=== PATIENT | female | born 1960 | race Caucasian/White ===

== ENCOUNTER 2016-06-06 07:08 | Day surgery (SDC) | payer OTHER ==
--- NOTE | 2016-05-26 10:28 | PAT Medication Instructions ---
Service Date May 26, 2016. Current Home Medication List Alprazolam (Xanax), 1 MG PO TID PRN for Anxiety Amlodipine (Norvasc), 5 MG PO QAM Aspirin (Aspirin Ec), 81 MG PO QAM Clonidine Hcl (Catapres), 0.1 MG PO TID Cyclobenzaprine Hcl (Flexeril), 10 MG PO TID Escitalopram (Lexapro), 10 MG PO QAM Hydrochlorothiazide (Hydrochlorothiazide), 1 TAB PO DAILY PRN for SWELLING Isosorbide Mononitrate (Isosorbide Mononitrate ER), 30 MG PO QAM Metoprolol Tartrate (Lopressor) (Lopressor), 25 MG PO BID Pantoprazole (Protonix), 40 MG PO QAM Medication Instructions For Your Scheduled Surgery - Check with surgeon for instructions: Aspirin (Aspirin Ec), 81 MG PO QAM - Hold the following medications the morning of surgery: Cyclobenzaprine Hcl (Flexeril), 10 MG PO TID Hydrochlorothiazide (Hydrochlorothiazide), 1 TAB PO DAILY PRN for SWELLING\ - Take the following medications the morning of surgery with a sip of water: Metoprolol Tartrate (Lopressor) (Lopressor), 25 MG PO BID Pantoprazole (Protonix), 40 MG PO QAM Escitalopram (Lexapro), 10 MG PO QAM Clonidine Hcl (Catapres), 0.1 MG PO TID Alprazolam (Xanax), 1 MG PO TID PRN for Anxiety Amlodipine (Norvasc), 5 MG PO QAM Isosorbide Mononitrate (Isosorbide Mononitrate ER), 30 MG PO QAM - Take the following medications as scheduled the night before surgery: Metoprolol Tartrate (Lopressor) (Lopressor), 25 MG PO BID Cyclobenzaprine Hcl (Flexeril), 10 MG PO TID Clonidine Hcl (Catapres), 0.1 MG PO TID Alprazolam (Xanax), 1 MG PO TID PRN for Anxiety Hydrochlorothiazide (Hydrochlorothiazide), 1 TAB PO DAILY PRN for SWELLING If you have any questions please call us at [phone] (Sylwia Ernandez PA-C) or [phone] or [phone]
[2016-05-26 11:48] LABS: BASO % 0.5 %; BASO ABS # 0.04 K/uL (0-0.2); COMPLETE YES; EOS % 3.3 %; HEMATOCRIT 37.7 % (37-47); IG% 0.4 %; LYMPH % 25.1 %; LYMPH ABS # 2.13 K/uL (1.2-3.4); MEAN CELL VOLUME 83.6 fL (80-100); MEAN CORPUSCULAR HGB CONC 34.7 g/dl (32-36); MEAN PLATELET VOLUME 10.9 fL (7.4-10.4); MONO % 9.3 %; NEUT % 61.4 %; PLATELET COUNT 328 K/uL (130-400); RED BLOOD COUNT 4.51 M/uL (4.2-5.4); WHITE BLOOD COUNT 8.47 K/uL (4.8-10.8)
[2016-05-26 12:14] LABS: BUN/CREATININE RATIO 15.9 (10-20); CALCIUM 8.8 mg/dl (8.5-10.1); CREATININE 0.92 mg/dl (0.60-1.20)
--- NOTE | 2016-06-02 16:53 | HISTORY & PHYSICAL EXAMINATION ---
DATE OF ADMISSION: 06/06/2016 CHIEF COMPLAINT: Persistent complex right ovarian cyst. HISTORY OF PRESENT ILLNESS: The patient is a 56-year-old white female 2, para 2 who is perimenopausal. She presented to the ED recently and was diagnosed with a kidney stone, admitted for observation with urology consult. Incidentally found on the CT scan was a complex 6 cm right ovarian cyst and also noted was some mild lymphadenopathy with 12 mm periaortic nodes. There was also a 2.4 cm cyst noted on the left ovary. On ultrasound, the right ovary measures 78 mL with a 4.3 x 4.1 x 4.1 cm complex multicystic septated mass, the left ovary 8.6 mL with no masses. The patient's last menstrual period was January 2011. She notes irregular periods every 3-5 weeks, sometimes light other times heavier, no breakthrough bleeding and mild cramping with 6 days of flow. Last Pap was last year. She notes no abdominal pain. She notes some urinary symptoms with her kidney stone. These have not worsened. She is not sexually active. No history of STDs. She was told that she had cyst on her ovary at [facility] within the last year. Followup ultrasound apparently had no cyst. She has had 2 vaginal deliveries and no issues with the pregnancies and no nausea, vomiting. The rest of review of systems is negative. After evaluation, we decided to get a CA-125. This was 5. So given that the CA-125 was negative, we decided to follow up in 6-8 weeks to see if there would be resolution of the cyst. The patient visited me on May 03 having an ultrasound at that visit, endometrium was 7.5 mm, the left ovary was 5.4 mL and inhomogeneous, the right ovary contains a complex lobulated multicystic septated cyst measuring 4.1 x 3.2 x 5.8 cm. This is about 40 mL. It was previously 38.1 mL. A repeat CA-125 was performed and this was 7. Given the persistence of this complex cyst, I have recommended its removal. PAST OBSTETRICAL AND GYNECOLOGICAL HISTORY: As noted above. PAST MEDICAL HISTORY: Significant for acid reflux, elevated liver enzymes, hypertension and nephrolithiasis. PAST SURGICAL HISTORY: Includes wisdom teeth removal and tubal ligation. FAMILY HISTORY: Her mother has a cerebrovascular accident. There is no family history of breast, colorectal or ovarian cancer in the family. ALLERGIES: SHE HAS ALLERGIES TO ANTIHISTAMINES AND LISINOPRIL. MEDICATIONS: Currently include alprazolam 0.5 mg t.i.d. p.r.n., amlodipine 5 mg once daily, aspirin 81 mg once daily, clonidine 0.1 mg 3 times daily, cyclobenzaprine 10 mg 1 tablet t.i.d. as needed, escitalopram 10 mg daily, isosorbide ER 30 mg 1 daily, metoprolol 25 mg 1 tablet twice daily, pantoprazole 40 mg tablet once daily. PHYSICAL EXAMINATION: GENERAL: This is a well-developed, well-nourished white female in no acute distress. VITAL SIGNS: Height 5 feet 2 inches, weight 166 pounds, blood pressure 130/72. NECK: Supple without thyromegaly or lymphadenopathy. CHEST: Clear to auscultation bilaterally. CARDIOVASCULAR: Regular rate and rhythm without murmurs, gallops or rubs. BACK: Without costovertebral angle tenderness. ABDOMEN: Soft, nontender, nondistended, without appreciable masses. PELVIC: There is normal external female genitalia. Normal Bartholin, urethra and Suffield glands. The vagina is pink and with fair rugae. There was no active vaginal bleeding. On bimanual exam, there was fullness in the right adnexa, but no tenderness. The uterus was small, anteverted and nontender. No uterine masses were appreciated. Palpation of the bladder was negative. RECTAL: Showed normal sphincter tone, no masses. ASSESSMENT AND PLAN: This is a 56-year-old perimenopausal white female who has a complex right ovarian cyst. I have recommended laparoscopic right salpingo-oophorectomy with or without the need for the da Marivel. The risks of surgery were discussed with the patient including the risks of anesthesia; bleeding requiring transfusion; infection; poor wound healing; damage to surrounding structures including bowel, bladder, vessels, nerves and ureters with need for further surgery, hospitalization or intervention. We discussed the possibility of open procedure. The other risks of surgery were discussed with the patient including the risk of heart attack, blood clot, stroke or . We did discuss the possibility of rupture of the cyst and the implications of that should there be cancer. Questions were asked and answered. Surgery is scheduled for June 06.
[~2016-06-06] VITALS: Ht 157.5 cm; Wt 76.2 kg
[~2016-06-06 07:08] MED LIST: ALPR-411 PO; CYCL10TA6 PO; ESCI10TA17 PO; HYDR12.55 PO; LACTATED RINGER'S 1000ML 1,000 ML IV SCH
[2016-06-06 07:27] VITALS: BP 136/78; PULSE 79; TEMP 36.4; O2SAT 95; Ht 157.5 cm; Wt 76.2 kg
[2016-06-06 08:21] LABS: BUN/CREATININE RATIO 17.1 (10-20); CALCIUM 8.9 mg/dl (8.5-10.1); CREATININE 0.97 mg/dl (0.60-1.20); POTASSIUM 3.4 mmol/L (3.5-5.1)
--- NOTE | 2016-06-06 10:22 | History & Physical Bridge Note ---
H&P Re-Evaluation Bridge Note: I have examined the patient, reviewed the History & Physical and in the interval since the performance of the History & Physical I have noted the following changes of clinical significance: No changes noted
[2016-06-06] MEDS ORDERED: MIDAZOLAM HCL 1 MG/ML 2ML VIAL ONE (10:23)
[2016-06-06] MEDS ORDERED: FENTANYL CITRATE INJ 50 MCG/1 ML 2 ML VIAL ONE ×3 (10:23→13:25)
[2016-06-06] MEDS ORDERED: PROPOFOL IV EMULSION 10 MG/ML 20 ML VIAL IV ONE (11:04)
[2016-06-06] MEDS ORDERED: ROCURONIUM BROMIDE 10 MG/ML 5 ML VIAL ONE (11:04)
[2016-06-06] MEDS ORDERED: ONDANSETRON INJ 2 MG/ML 2 ML VIAL ONE (11:05)
[2016-06-06] MEDS ORDERED: DEXAMETHASONE SOD INJ 4 MG/ML VIAL ONE (11:05)
[2016-06-06] MEDS ORDERED: LIDOCAINE HCL 2% 2 ML VIAL (20MG/ML) ONE (11:05)
[2016-06-06] MEDS ORDERED: ESMOLOL HCL 10 MG/ML 10 ML VIAL ONE (11:15)
[2016-06-06] MEDS ORDERED: PHENYLEPHRINE HCL INJ 10 MG/ML VIAL ONE (12:09)
[2016-06-06] MEDS ORDERED: FLUMAZENIL 0.1 MG/1 ML 10 ML VIAL IV PRN (12:15)
[2016-06-06] MEDS ORDERED: EpHEDrine SULFATE INJ 50 MG/ML AMP IV PRN (12:15)
[2016-06-06] MEDS ORDERED: MEPERIDINE HCL 25 MG/ML CARP IV PRN (12:15)
[2016-06-06] MEDS ORDERED: ONDANSETRON INJ 2 MG/ML 2 ML VIAL IV PRN (12:15)
[2016-06-06] MEDS ORDERED: FENTANYL CITRATE INJ 50 MCG/1 ML 2 ML VIAL IV PRN (12:15)
[2016-06-06] MEDS ORDERED: PHENYLEPHRINE 100MCG/ML 5ML SYR IV PRN (12:15)
[2016-06-06] MEDS ORDERED: HYDROmorphone INJ 2 MG/ML SYR/VIAL IV PRN (12:15)
[2016-06-06] MEDS ORDERED: LABETALOL HCL IV 5 MG/ML 20ML IV PRN (12:15)
[2016-06-06] MEDS ORDERED: ATROPINE SULFATE 0.1 MG/ML 5ML SYR IV PRN (12:15)
[2016-06-06] MEDS ORDERED: BUPIVACAINE 0.5 % 5 MG/1 ML MPF 30ML VIAL INJ ONE (13:45)
[2016-06-06] MEDS ORDERED: METOPROLOL TARTRATE 1 MG/ML VIAL ONE ×2 (13:51→14:13)
--- NOTE | 2016-06-06 13:58 | [facility] Post Operative Brief Note ---
Immediate Operative Summary Operative Date Jun 06, 2016. Pre-Operative Diagnosis Persistent complex right ovarian cyst Post-Operative Diagnosis Bilateral solid cystic mass/ovaries frozen section- right ovarian serous cystadenofibroma Procedure(s) Performed Robotic assisted laparoscopic bilateral salpingo-oophorectomy with cytology washings and cystoscopy Surgeon Dr. Gutierrez Retail Financial Analyst Surgeon(s) Dr. Hobson Estimated Blood Loss 50ml Findings right ovary enlarged to 6-7cm, irregular rubbery and cystic masses noted. the left ovary had a similar appearance but was only about 3cm. uterus normal. tubes normal bilaterally other than interrupted. adhesions between the liver edge and diaphragm. Fluids (cc crystalloids) 2000cc Specimens A. Left fallopian tube and ovary Drains none Anesthesia gett Disposition Recovery Room / PACU
[2016-06-06] MEDS ORDERED: LACTATED RINGER'S 1000ML 1,000 ML IV SCH (14:04)
[2016-06-06] MEDS ORDERED: OXYC-57 PO ×2 (14:07→15:55)
--- NOTE | 2016-06-06 14:09 | Discharge Instructions ---
Discharge Instructions Visit Reason for Visit: Complex Right Ovarian Cyst Discharge Discharge Diagnosis / Problem: s/p removal of both ovaries Discharge Goals Goal(s): Specific goals Activity Recommendations Activity Limitations: per Instructions/Follow-up section Anesthesia . Post Anesthesia Instructions: If you have had General Anesthesia or IV Sedation: * Do not drive today. * Resume driving when surgeon permits. * Do not make important decisions or sign legal documents today. * Call surgeon for: 1. Temperature elevations greater than 101 degrees F. 2. Uncontrollable pain. 3. Excessive bleeding. 4. Persistent nausea and vomiting. 5. Medication intolerance (nausea, vomiting or rash). * For nausea and vomiting use only clear liquids such as: tea, soda, bouillon until nausea subsides, then gradually increase diet as tolerated. * If you have any concerns or questions, call your surgeon's office. If physician is unavailable and it is an emergency, call 911 or go to the nearest emergency room. . Instructions / Follow-Up Instructions / Follow-Up ACTIVITY RECOMMENDATIONS: * Rest the first 2-3 days. You should be back to your normal activity levels by day 5. * No heavy lifting for 2 weeks. * No intercourse, tampons or douching for 1-2 weeks. * You may shower the next day. * Do not drive anytime that you are taking narcotic pain medicines. RETURN TO SCHOOL/WORK: * May return to school or work after 2-3 days. DIET: Nausea may occur in the immediate post-operative period. If so, take clear liquids such as tea, bouillon, apple juice until all nausea has subsided, then resume usual diet. MEDICATIONS: Resume previous medications unless instructed otherwise by your surgeon. Ibuprofen 200mg 2-3 tablets every 4-6 hours as needed -- OR -- Aleve 2 tablets every 8-12 hours as needed for post-operative discomfort Medications are over the counter. Tylenol may be used if above medications are contraindicated or not preferred. Medication should be taken with food or milk. Do not take on an empty stomach. SPECIAL CARE INSTRUCTIONS: * Check temperature twice daily for one week. report any elevation over 101 degrees. * You may experience some vagina spotting and/or bleeding. This is normal for 1 -2 weeks and should not be heavier than a normal period. If it is unusual in amount, call your physician. * Post-operative discomfort may consist of a sore throat, a "bloated" feeling and pain in the shoulders. these are normal symptoms, which usually only last for 2-3 days. * Remove band-aids tomorrow and shower. There is no need to replace band-aids unless there is drainage or discomfort. FOLLOW UP VISIT: Call your doctor's office for a post-operative 2 week visit if not already scheduled. Diet Recommendations Recommended Home Diet: no limitations, resume previous diet Procedures Procedures Performed: Robotic assisted laparoscopic bilateral salpingo-oophorectomy with cytology washings and cystoscopy Pending Studies Studies pending at discharge: no Medical Emergencies . Who to Call and When: Medical Emergencies: If at any time you feel your situation is an emergency, please call 911 immediately. . Non-Emergent Contact Non-Emergency issues call your: Beta Tester . . "Provider Documentation" section prepared by Gwen Gutierrez. [place] Drug Monitoring Program Search Results: patient reviewed within database
--- NOTE | 2016-06-06 14:11 | Medical Student: [facility] ---
Immediate Operative Summary Operative Date Jun 06, 2016. Pre-Operative Diagnosis Right ovarian cyst Post-Operative Diagnosis Bilateral solid cystic mass/ovaries, right serous cystadenofibroma confirme Procedure(s) Performed Robotic assisted bilateral salpingoopherectomy, cytology wash, cystoscopy Surgeon Dr. Gutierrez Coagulating Bath Operator Surgeon(s) Dr. Hobson Estimated Blood Loss 50ml Findings right ovary was found to be enlarged to approx 7 cm and irregularly lobular and rubbery with cystic patches. Left ovary was found to be similar in appearance, but only enlarged to about 3 cm. Uterus was visualized as normal. Tubes were normal bilaterally. There were adhesions noted between the liver and diaphragm. Fluids (cc crystalloids) 2000 cc Specimens Right and left ovaries and fallopian tubes Drains none Anesthesia General ETT Complication(s) None Disposition Recovery Room / PACU
[2016-06-06] MEDS ORDERED: ACETAMINOPHEN 650 MG SUPP PR PRN (14:15)
[2016-06-06] MEDS ORDERED: IBUPROFEN 600 MG TAB PO PRN (14:15)
[2016-06-06] MEDS ORDERED: MoRPHine SULFATE 2 MG/ML CARP IV PRN ×2 (14:15)
[2016-06-06] MEDS ORDERED: KETOROLAC TROMETHAMINE 30 MG/ML VIAL IV. PRN ×2 (14:15)
[2016-06-06] MEDS ORDERED: ACETAMINOPHEN 325 MG TAB PO PRN (14:15)
[2016-06-06] MEDS ORDERED: OXYCODONE/ACETAMINOPHEN 5-325 TAB PO PRN ×2 (14:15)
[2016-06-06] MEDS ORDERED: MoRPHine SULFATE 4 MG/ML 1 ML CARP\\VIAL IV PRN (14:15)
[2016-06-06] MEDS ORDERED: IBUPROFEN 200 MG TAB PO PRN (14:15)
[2016-06-06] MEDS: NALOXONE HCL 0.4 MG/1 ML VIAL/CARP IV PRN ×2 (14:30→14:33)
--- NOTE | 2016-06-06 14:54 | OPERATIVE REPORT ---
DATE OF OPERATION: 06/06/2016 PREOPERATIVE DIAGNOSIS: Right complex ovarian cyst. POSTOPERATIVE DIAGNOSES: 1. Bilateral complex cystic and solid ovarian masses. 2. 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 SURGEON: Dr. Gwen Gutierrez. TALLIER: Dr. Hobson. ANESTHESIA: General per endotracheal tube. ESTIMATED BLOOD LOSS: 50 mL. FLUIDS: 2000 mL of IV fluids. URINE OUTPUT: 1300 mL of clear yellow urine drained from the bladder by the end of the procedure. INDICATIONS: oJrdyn is a 56-year-old perimenopausal white female who was found to have a multicystic right ovary when she had a CT scan for a kidney stone. CA-125 was normal. Left ovary appeared normal by CT. Decision was made with persistence to remove. FINDINGS: At the time of surgery revealed an enlarged right ovary that was cystic and solid in texture. It was adhesed to the right pelvic sidewall. The left ovary although much smaller and had a similar gross appearance. On frozen section, the right ovary was found to be on several sections of serous cystadenofibroma. Given this finding and the appearance of the other ovary in a similar fashion, decision was made to remove the left adnexa. COMPLICATIONS: None. DRAINS: None. DISPOSITION: To recovery room in stable condition. DESCRIPTION OF PROCEDURE: The patient was taken to the operating room, where she was identified verbally and by bracelet. She was placed in dorsal supine position where general anesthesia was induced without difficulty. She was then placed in dorsal lithotomy position and Yellofin stirrups. Her arms were carefully tucked and padded at her sides and her chest was padded and restrained. The head stock operator was placed. She was prepped and draped in normal sterile fashion. Timeout was held identifying correct patient, procedure and positioning. Attention was turned to the perineum, where speculum was placed. The anterior lip of the cervix was grasped with a single tooth tenaculum and a Hernandez uterine manipulator was placed into this and then the speculum was removed. A Gonzales catheter was placed. Gloves were then changed. Attention was turned to the abdomen, where an infraumbilical incision was made with a knife. Veress needle was placed through this opening pressure of 10 mmHg over several attempts. Therefore, decision made to proceed this as an open procedure. We opened the skin incision slightly farther with the knife. The fascia was grasped bilaterally and entered with scissors. The edges were sutured with a [id number] suture of 0 Vicryl. The peritoneum was then entered bluntly. The Bruce trocar was placed and direct intra-abdominal placement was confirmed with the laparoscope. The abdomen was insufflated with carbon dioxide gas. The patient was placed into Trendelenburg position. Evaluation of the pelvis revealed the above findings. The right ovary was stuck to the pelvic sidewall, so decision was made to proceed with da Marivel nurse assistant. Two 8 mm daVinci trocars were placed under direct visualization in the right and left lower quadrants. A 10mm assist trocar was placed in the left upper quadrant. The da Marivel nurse assistant device was connected to the patient and the grinding machine operator automatic proceeded to the console. Some of the bowel adhesions of the omentum and bowel epiploic of the descending colon were taken down sharply and with scissors and then the IP ligament was identified on the right and it was found to be free of the ureter and it was cauterized and cut with hot sandor. Then, the tubo-ovarian ligament was gone through as well as the tubal stump. Then using blunt dissection, the ovary was peeled off of the right pelvic sidewall until it was disconnected from the side wall and uterus. There was ooziness of the right pelvic sidewall and so, a sponge was placed into this area to serve as a pressure. The surgeon rescrubbed and returned to the sterile field. The daVinci was disconnected. A bag was placed through the umbilical incision. The camera was placed through an 10-mm accessory trocar site. The specimen was placed into the bag and the bag was drawn up to the surface and the specimen was removed from the bag in two pieces with the knife and then eventually could be removed entirely. The bag remained intact. There was some fluid that was released from several very small cystic areas on the ovary. The specimen was then sent for frozen section. The da Marivel nurse assistant device was reconnected to the patient. The grinding machine operator automatic returned to the console and the area of the right pelvic sidewall was evaluated. Oozing from the site was much improved. FloSeal was placed into this area and pressure was held for 4 minutes with a sponge. Hemostasis was then noted to be excellent. The pathology specimen returned serous cystadenofibroma from the frozen section. I felt that it was in the patient's best interest to remove the other ovary as it had a very similar appearance. I did scrub out, leaving Dr. Ashly Hobson in to monitor the patient, discussed this with the patient's family and told them my findings and they agreed that we should proceed. returning to the console, I did some blunt and sharp dissection of the bowel epiploica and omentum from the left side. The tubo-ovarian ligament was cauterized and cut and then once, we were clear of the IP, the IP was also cauterized and cut. The ovary was bluntly dissected away from the left pelvic sidewall until it was detached. The da Marivel nurse assistant device was removed from the patient. A bag was placed through the 12-mm trocar site and using the camera through the 10-mm trocar site, the specimen was placed into the bag and the bag was withdrawn through the incision. This ended the procedure. The fascial incision of the umbilical incision was repaired with 0 Vicryl. The subcuticular tissue was irrigated with saline and then all skin incisions were closed with 4-0 Vicryl in a subcuticular fashion. The incisions were then infiltrated with 0.5% Marcaine and treated with Dermabond. The instruments were removed from the vagina as well as the Gonzales catheter. Hemostasis was noted to be excellent. All sponge, lap and needle counts were correct x2. The patient tolerated the procedure well and was taken to recovery room in stable condition. I attest to the content of the Intraoperative Record and any orders documented therein. Any exceptions are noted below. MONTSE
--- NOTE | 2016-06-06 15:27 | Anesthesiology Progress Note ---
Anesthesia Post Op Note Date & Time Jun 06, 2016 at 15:24 Vital Signs Pain Intensity: 0 Vital Signs Past 12 Hours Date Time Temp Pulse Resp B/P Pulse Ox O2 Delivery O2 Flow Rate FiO2 06/06/16 15:01 86 16 06/06/16 15:01 86 16 91 06/06/16 14:59 114/69 06/06/16 14:56 86 18 06/06/16 14:56 85 18 95 06/06/16 14:54 92/71 06/06/16 14:51 87 19 92 06/06/16 14:51 87 19 06/06/16 14:48 125/78 06/06/16 14:46 86 23 95 06/06/16 14:46 86 23 06/06/16 14:44 104/73 06/06/16 14:41 85 18 06/06/16 14:41 85 18 91 06/06/16 14:39 126/73 06/06/16 14:36 84 22 93 06/06/16 14:36 85 22 06/06/16 14:34 138/84 06/06/16 14:31 88 20 87 06/06/16 14:31 88 20 06/06/16 14:29 148/80 06/06/16 14:26 88 18 88 06/06/16 14:26 88 18 06/06/16 14:24 149/89 06/06/16 14:21 86 17 86 06/06/16 14:21 85 17 06/06/16 14:19 162/81 06/06/16 14:16 87 19 06/06/16 14:16 87 19 89 06/06/16 14:14 181/88 06/06/16 14:11 101 16 06/06/16 14:11 101 16 197/110 93 06/06/16 14:11 36.0 101 12 197/110 93 Mask 15 06/06/16 07:27 36.4 79 20 136/78 95 Room Air Notes Mental Status: alert / awake / arousable, participated in evaluation Pt Amnestic to Procedure: Yes Nausea / Vomiting: adequately controlled Pain: adequately controlled Airway Patency, RR, SpO2: stable & adequate BP & HR: stable & adequate Hydration State: stable & adequate Anesthetic Complications: no major complications apparent Stable and awake now but was somewhat slow at waken after surgery and received some naloxone. Will contact Dr Gutierrez to decide whether to watch her longer and try to get her home or to admit for observation.
[2016-06-06 15:30] VITALS: BP 114/60; PULSE 86; TEMP 36.4; O2SAT 98
[2016-06-06 16:00] VITALS: BP 118/71; PULSE 95; O2SAT 93
[2016-06-06 16:30] VITALS: BP 133/78; PULSE 92; O2SAT 94
[2016-06-06 17:25] VITALS: BP 118/74; PULSE 95; TEMP 36.5; O2SAT 93
[2016-06-06 18:05] VITALS: BP 115/72; PULSE 96; TEMP 36.4; O2SAT 94
[2017-02-12] MEDS ORDERED: PANT40TA PO (14:43)
[2017-02-12] MEDS ORDERED: ISOS-11 PO (14:43)
[2017-02-12] MEDS ORDERED: ASPI81TA28 PO (14:43)
[2017-02-12] MEDS ORDERED: CTP/1 PO (14:43)
[2017-02-12] MEDS ORDERED: METO25TA56 PO (14:43)
[2017-02-12] MEDS ORDERED: AMLO-110 PO (14:43)
[2017-02-12] MEDS ORDERED: [UNRECOGNIZED DRUG - CODE] NAE (18:56)
[2017-02-12] MEDS ORDERED: FLUT0.15 NAE (18:56)
[2017-02-12] MEDS ORDERED: ALPR0.25 PO (23:50)
[2017-02-13] MEDS ORDERED: PANT40TA PO (14:30)
== END 2016-06-06 18:13 | disposition home or self-care (01) ==
LOC: C.ACU 07:08
PROVIDERS: ATTEND Obstetrics & Gynecology
DX: D27.0 Benign neoplasm of right ovary (principal); N83.291 Other ovarian cyst, right side; N83.292 Other ovarian cyst, left side; K66.0 Peritoneal adhesions (postprocedural) (postinfection); N20.0 Calculus of kidney
CPT/HCPCS: 58661; S2900

== ENCOUNTER 2016-06-19 17:22 | Observation (INO) | payer OTHER ==
[~2016-06-19] VITALS: Ht 157.5 cm; Wt 74.0 kg
[~2016-06-19 17:22] MED LIST changes: -LACTATED RINGER'S 1000ML 1,000 ML IV SCH; +OXYC-57 PO
[2016-06-19] MEDS ORDERED: ASPIRIN 81 MG CHEW PO STA (17:36)
[2016-06-19] MEDS ORDERED: LORAZEPAM 2 MG/ML 1 ML VIAL IV STA (17:36)
[2016-06-19] MEDS ORDERED: SODIUM CHLORIDE 0.9% 500ML 500 ML IV STA (17:37)
--- NOTE | 2016-06-19 17:42 | EMERGENCY ROOM VISIT NOTE ---
History Report prepared by Lorena: Kris Bragg Under the Supervision of: Dr. Delvis Pop D.O. First contact with patient: 17:29 Chief Complaint: CHEST PAIN Stated Complaint: PAIN RIGHT CHEST History of Present Illness The patient is a 56 year old female who presents to the Emergency Room with complaints of intermittent right sided chest pain that began [employer]. The patient rates her current pain a 0/10 due to not feeling the pain at the moment. The patient's pain began while she was watching television. Two weeks ago, the patient got her ovaries and fallopian tubes removed due to an infection. She was taken off Xanax and placed onto Lexapro. She is experiencing so shortness of breath. She denies any back pain, leg pain, leg edema, fever, or abdominal pain. She denies any history of heart attacks. She had a cardiac stress test in 2014 that was normal. She has a history of hypertension. Source of History: patient Onset: [employer] Position: chest (right) Symptom Intensity: 0/10 Quality: ache Timing: intermittent Associated Symptoms: + SOB, No abdominal pain, No back pain, No fevers Note: She denies any leg edema or pain. Review of Systems See HPI for pertinent positives & negatives. A total of 10 systems reviewed and were otherwise negative. Past Medical & Surgical Medical Problems: (1) Hypertension (2) Kidney stones (3) Renal calculus, left Surgical Problems: (1) History of tubal ligation Family History FH: hypertension Kidney stones Social History Smoking Status: Never Smoker Alcohol Use: none Drug Use: none Marital Status: Housing Status: lives with family Occupation Status: unemployed Current/Historical Medications Scheduled Amlodipine (Norvasc), 5 MG PO QAM Aspirin (Aspirin Ec), 81 MG PO QAM Clonidine Hcl (Catapres), 0.1 MG PO TID Escitalopram (Lexapro), 10 MG PO QAM Isosorbide Mononitrate (Isosorbide Mononitrate ER), 30 MG PO QAM Metoprolol Tartrate (Lopressor) (Lopressor), 25 MG PO BID Pantoprazole (Protonix), 40 MG PO QAM Scheduled PRN Cyclobenzaprine Hcl (Flexeril), 10 MG PO TID PRN for Pain Hydrochlorothiazide (Hydrochlorothiazide), 1 TAB PO DAILY PRN for SWELLING Oxycodone/Acetaminophen 5MG/325MG (Percocet 5MG/325MG), 1 TABLET PO Q4H PRN for Pain Allergies Coded Allergies: Antihistamines, Chlorpheniramine-ty (Verified Allergy, Unknown, INCREASED BP, 05/26/16) Antihistamines, Diphenhydramine-typ (Verified Allergy, Unknown, INCREASED BP, 05/26/16) Antihistamines, Loratadine-type (Verified Allergy, Unknown, INCREASED BP, 05/26/16) Lisinopril (Verified Allergy, Unknown, INCREASED BLOODPRESSURE, 05/26/16) Physical Exam Vital Signs Date Time Temp Pulse Resp B/P Pulse Ox O2 Delivery O2 Flow Rate FiO2 06/19/16 19:20 98 18 137/87 92 Room Air 06/19/16 17:38 93 Room Air 06/19/16 17:38 93 Room Air 06/19/16 17:34 105 06/19/16 17:33 96 Room Air 06/19/16 17:31 37.5 104 20 152/85 96 Room Air Physical Exam GENERAL: Patient is awake, alert, and in no acute distress. Patient is resting comfortably and showing mild signs of anxiety. EYES: The conjunctivae are clear. The pupils are round and reactive. EARS, NOSE, MOUTH AND THROAT: The nose is without any evidence of any deformity. Mucous membranes are moist tongue is midline NECK: The neck is nontender and supple. RESPIRATORY: Normal respiratory effort is noted there is no evidence of wheezing rhonchi or rales CARDIOVASCULAR: Regular rate and rhythm noted there no murmurs rubs or gallops normal S1 normal S2 GASTROINTESTINAL: The abdomen is soft. Bowel sounds are present in all quadrants. Mildly distended. No tenderness, guarding, or rigidity. Laparoscopic surgical scars over mid abdomen noted. No erythema, dehiscence, or swelling noted. PELVIS: The Pelvis is stable. No tenderness to palpation is noted. BACK: No midline tenderness or or step-off noted range of motion in flexion extension as well as rotation no signs of muscle spasm noted MUSCULOSKELETAL/EXTREMITIES: There is no evidence of gross deformity full range of motion is noted in the hips and shoulders SKIN: There is no obvious evidence of any rash. There are no petechiae, pallor or cyanosis noted. NEUROLOGIC: Patient is awake alert and oriented x3 strength is symmetric patellar reflexes are 2+ bilaterally Medical Decision & Procedures ER Provider Diagnostic Interpretation: Radiology results per my review and radiologist interpretation: CHEST ONE VIEW PORTABLE CLINICAL HISTORY: Right-sided chest pain COMPARISON STUDY: 03/10/2016 FINDINGS: The cardiac and mediastinal contours are normal. There is no evidence of focal pulmonary consolidation. There is no evidence of failure. No pleural effusions are visualized.[ There is mild basilar atelectasis. IMPRESSION: Bibasilar opacities, likely atelectatic. No evidence of focal pulmonary consolidation. No evidence of pneumothorax. No evidence of failure. Electronically signed by: Everett Thompson M.D. 06/19/2016 5:54 PM Dictated Date/Time: 06/19/2016 5:54 PM Laboratory Results 06/19/16 17:35 Red Blood Count 4.48, Mean Corpuscular Volume 85.3, Mean Corpuscular Hemoglobin 29.9, Mean Corpuscular Hemoglobin Concent 35.1, Mean Platelet Volume 10.9, Neutrophils (%) (Auto) 67.2, Lymphocytes (%) (Auto) 24.6, Monocytes (%) (Auto) 5.4, Eosinophils (%) (Auto) 2.4, Basophils (%) (Auto) 0.2, Neutrophils # (Auto) 8.06, Lymphocytes # (Auto) 2.96, Monocytes # (Auto) 0.65, Eosinophils # (Auto) 0.29, Basophils # (Auto) 0.03 06/19/16 17:35 Test 06/19/16 17:35 White Blood Count 12.02 K/uL (4.8-10.8) Red Blood Count 4.48 M/uL (4.2-5.4) Hemoglobin 13.4 g/dL (12.0-16.0) Hematocrit 38.2 % (37-47) Mean Corpuscular Volume 85.3 fL (80-100) Mean Corpuscular Hemoglobin 29.9 pg (25-34) Mean Corpuscular Hemoglobin Concent 35.1 g/dl (32-36) Platelet Count 397 K/uL (130-400) Mean Platelet Volume 10.9 fL (7.4-10.4) Neutrophils (%) (Auto) 67.2 % Lymphocytes (%) (Auto) 24.6 % Monocytes (%) (Auto) 5.4 % Eosinophils (%) (Auto) 2.4 % Basophils (%) (Auto) 0.2 % Neutrophils # (Auto) 8.06 K/uL (1.4-6.5) Lymphocytes # (Auto) 2.96 K/uL (1.2-3.4) Monocytes # (Auto) 0.65 K/uL (0.11-0.59) Eosinophils # (Auto) 0.29 K/uL (0-0.5) Basophils # (Auto) 0.03 K/uL (0-0.2) RDW Standard Deviation 43.1 fL (36.4-46.3) RDW Coefficient of Variation 13.9 % (11.5-14.5) Immature Granulocyte % (Auto) 0.2 % Immature Granulocyte # (Auto) 0.03 K/uL (0.00-0.02) Prothrombin Time 11.1 SECONDS (9.0-12.0) Prothromb Time International Ratio 1.0 (0.9-1.1) Activated Partial Thromboplast Time 28.5 SECONDS (21.0-31.0) Partial Thromboplastin Ratio 1.1 Anion Gap 14.0 mmol/L (3-11) Estimated GFR () 72.9 Estimated GFR (Non- 62.9 BUN/Creatinine Ratio 13.0 (10-20) Calcium Level 9.1 mg/dl (8.5-10.1) Magnesium Level 1.8 mg/dl (1.8-2.4) Total Bilirubin 0.2 mg/dl (0.2-1) Direct Bilirubin < 0.1 mg/dl (0-0.2) Aspartate Amino Transf (AST/SGOT) 20 U/L (15-37) Alanine Aminotransferase (ALT/SGPT) 47 U/L (12-78) Alkaline Phosphatase 127 U/L (45-117) Total Protein 8.0 gm/dl (6.4-8.2) Albumin 3.9 gm/dl (3.4-5.0) Lipase 119 U/L (73-393) Laboratory results per my review. Medications Administered Medications (Trade) Dose Ordered Sig/Yovana Route Start Time Stop Time Status Last Admin Dose Admin Aspirin (Aspirin Chew) 324 mg NOW STAT PO 06/19/16 17:36 06/19/16 17:37 DC 06/19/16 17:36 324 MG Lorazepam 0.5 mg 0.5 mg NOW STAT IV 06/19/16 17:36 06/19/16 17:37 DC 06/19/16 17:36 0.5 MG Sodium Chloride (Nss 500ml) 500 ml @ 999 mls/hr Q31M STAT IV 06/19/16 17:37 06/19/16 18:07 DC 06/19/16 17:59 999 MLS/HR Potassium Chloride 10 meq 10 meq NOW STAT IV 06/19/16 18:04 06/19/16 18:05 DC 06/19/16 18:35 10 MEQ Potassium Chloride/Sodium Chloride (Nss + 20meq KCl 1000ml) 1,000 ml @ 125 mls/hr Q8H IV 06/19/16 19:32 07/19/16 19:31 06/19/16 21:34 125 MLS/HR ECG Indication: chest pain Rate (beats per minute): 102 Rhythm: sinus tachycardia Findings: ST depression (Lateral), no ectopy Comparison ECG Date: 26 May 2016 Change: ST depressions are new. ED Course 1729: The patient was evaluated in room A9. A complete history and physical examination were performed. 1736: Ativan Inj 0.5 mg IV, Aspirin 324 mg PO 1737: Sodium Chloride 500 ml @ 999 mls/hr IV 1804: Potassium Chloride 10 meq IV 1835: Upon reevaluation, the patient is resting. I discussed results and treatment plan with the patient. She verbalizes agreement and understanding. I spoke with Dr. Arthur of the [facility]. The patient will be evaluated by him for further management and care. Medical Decision Differential diagnosis: Etiologies such as cardiac ischemia, aortic dissection, pulmonary embolism, pneumonia, pneumothorax, musculoskeletal, infections, pericarditis, myocarditis , esophageal rupture, gastrointestinal, as well as others were entertained. Nursing notes reviewed. The patient is a 56-year-old female who presented to the emergency department for an evaluation of chest pain. Patient was scratching nonspecific chest pain which was nonexertional. Upon arrival to the emergency Department the patient did not have any chest discomfort. She was found have nonspecific ST abnormalities in the lateral leads. The patient was treated with aspirin in the emergency department. I discussed the patient's laboratory and radiographic studies with her. Because of the patient's EKG changes I discussed her case with the on-call [facility] hospitalist group. They've agreed to evaluate the patient in the emergency department for further management and disposition. Consults Time Called: 1829 Consulting Physician: Dr. Jerson Leroy [facility] Returned Call: [phone] He will be evaluating the patient for further management. Impression Primary Impression: Left sided chest pain Additional Impressions: Hypokalemia Abnormal ECG Scribe Attestation The scribe's documentation has been prepared under my direction and personally reviewed by me in its entirety. I confirm that the note above accurately reflects all work, treatment, procedures, and medical decision making performed by me. Departure Information Dispostion Being Evaluated By Hospitalist Referrals Judy Nelson MD (PCP) Patient Instructions My [facility] Health Problem Qualifiers
[2016-06-19 17:51] LABS: BASO % 0.2 %; BASO ABS # 0.03 K/uL (0-0.2); COMPLETE YES; EOS % 2.4 %; HEMATOCRIT 38.2 % (37-47); IG% 0.2 %; LYMPH % 24.6 %; LYMPH ABS # 2.96 K/uL (1.2-3.4); MEAN CELL VOLUME 85.3 fL (80-100); MEAN CORPUSCULAR HEMOGLOBIN 29.9 pg (25-34); MEAN CORPUSCULAR HGB CONC 35.1 g/dl (32-36); MEAN PLATELET VOLUME 10.9 fL (7.4-10.4); MONO % 5.4 %; NEUT % 67.2 %; PLATELET COUNT 397 K/uL (130-400); RED BLOOD COUNT 4.48 M/uL (4.2-5.4); WHITE BLOOD COUNT 12.02 K/uL (4.8-10.8)
[2016-06-19 17:55] LABS: PARTIAL THROMBOPLASTIN RATIO 1.1; PROTHROMBIN TIME (PATIENT) 11.1 SECONDS (9.0-12.0)
--- NOTE | 2016-06-19 17:56 | DIAGNOSTIC IMAGING REPORT ---
CHEST ONE VIEW PORTABLE CLINICAL HISTORY: Right-sided chest pain COMPARISON STUDY: 03/10/2016 FINDINGS: The cardiac and mediastinal contours are normal. There is no evidence of focal pulmonary consolidation. There is no evidence of failure. No pleural effusions are visualized.[ There is mild basilar atelectasis. IMPRESSION: Bibasilar opacities, likely atelectatic. No evidence of focal pulmonary consolidation. No evidence of pneumothorax. No evidence of failure. Electronically signed by: Everett Thompson M.D. 06/19/2016 5:54 PM Dictated Date/Time: 06/19/2016 5:54 PM
[2016-06-19 18:04] LABS: ALT/SGPT 47 U/L (12-78); BLOOD UREA NITROGEN 13 mg/dl (7-18); CALCIUM 9.1 mg/dl (8.5-10.1); CARBON DIOXIDE 26 mmol/L (21-32); CHLORIDE 102 mmol/L (98-107); GLUCOSE 108 mg/dl (70-99); POTASSIUM 3.1 mmol/L (3.5-5.1); SODIUM 142 mmol/L (136-145)
[2016-06-19] MEDS ORDERED: POTASSIUM CHLORIDE 10 MEQ / 100ML WTR IV STA (18:04)
[2016-06-19 18:09] LABS: ALKALINE PHOSPHATASE 127 U/L (45-117); AST/SGOT 20 U/L (15-37)
[2016-06-19 18:46] LABS: MAGNESIUM 1.8 mg/dl (1.8-2.4)
[2016-06-19] MEDS ORDERED: ZOLPIDEM TARTRATE 5 MG TAB PO PRN (19:45)
[2016-06-19] MEDS ORDERED: ONDANSETRON INJ 2 MG/ML 2 ML VIAL IV PRN (19:45)
[2016-06-19] MEDS ORDERED: ALUMINUM/MAGNESIUM/SIMETH (MAALOX MAX) 30 ML UDC PO PRN (19:45)
[2016-06-19] MEDS ORDERED: PROMETHAZINE HCL INJ 12.5 MG in SODIUM CHLORIDE 0.9% 50ML 50 ML IV PRN (19:45)
[2016-06-19] MEDS ORDERED: MAGNESIUM HYDROXIDE SUSP 30 ML UDC PO PRN (19:45)
[2016-06-19] MEDS ORDERED: MoRPHine SULFATE 2 MG/ML CARP IV PRN (19:45)
[2016-06-19] MEDS ORDERED: BISACODYL 10 MG SUPP PR PRN (19:45)
[2016-06-19] MEDS ORDERED: ACETAMINOPHEN 325 MG TAB PO PRN (19:45)
[2016-06-19] MEDS ORDERED: NITROGLYCERIN 0.4 MG SL PER TAB CHARGE SL PRN (19:45)
[2016-06-19] MEDS ORDERED: LORAZEPAM 2 MG/ML 1 ML VIAL IV PRN (19:45)
[2016-06-19] MEDS ORDERED: IV FLUIDS COMPLETED PRN (20:00)
--- NOTE | 2016-06-19 20:41 | History and Physical ---
History & Physical Date & Time of Service: Jun 19, 2016 at 20:15 Chief Complaint: Pain Right Chest Primary Care Physician: Judy Nelson MD History of Present Illness Source: patient, spouse The patient is a 56-year-old female who presents emergency department with complaint of intermittent substernal chest pain that began earlier in the day prior to arrival. She is status post laparoscopic hysterectomy 2 weeks ago due to infection, and has the usual postop incisional area pain. She does report that the postoperative pain is worse when she takes a deep breath and she has noticed herself taking more shallow breaths since his surgery. She also notes that 3 weeks ago when she went to see her PCP, she was taken off of Xanax and changed her Lexapro and since that time has had headaches in the frontal parietal and temporal areas. She had a cardiac stress test done in 2014 was normal. She was unsure if the substernal chest pain that she has is related to her reflux or to her heart. Family History FH: hypertension Kidney stones Social History Smoking Status: Never Smoker Smokeless Tobacco Use: No Alcohol Use: none Drug Use: none Marital Status: Housing status: lives with family Occupational Status: unemployed Multi-Drug Resistant Organisms History of MDRO: No Allergies Coded Allergies: Antihistamines, Chlorpheniramine-ty (Verified Allergy, Unknown, INCREASED BP, 05/26/16) Antihistamines, Diphenhydramine-typ (Verified Allergy, Unknown, INCREASED BP, 05/26/16) Antihistamines, Loratadine-type (Verified Allergy, Unknown, INCREASED BP, 05/26/16) Lisinopril (Verified Allergy, Unknown, INCREASED BLOODPRESSURE, 05/26/16) Home Medications Scheduled Amlodipine (Norvasc), 5 MG PO QAM Aspirin (Aspirin Ec), 81 MG PO QAM Clonidine Hcl (Catapres), 0.1 MG PO TID Escitalopram (Lexapro), 10 MG PO QAM Isosorbide Mononitrate (Isosorbide Mononitrate ER), 30 MG PO QAM Metoprolol Tartrate (Lopressor) (Lopressor), 25 MG PO BID Pantoprazole (Protonix), 40 MG PO QAM Scheduled PRN Cyclobenzaprine Hcl (Flexeril), 10 MG PO TID PRN for Pain Hydrochlorothiazide (Hydrochlorothiazide), 1 TAB PO DAILY PRN for SWELLING Oxycodone/Acetaminophen 5MG/325MG (Percocet 5MG/325MG), 1 TABLET PO Q4H PRN for Pain Review of Systems The patient denies palpitations, cough, lower extremity swelling, vision change , hearing change, fevers, chills, sweats, weight change, fatigue, nausea, vomiting, pelvic pain, blood in urine or stool, dysuria, urinary frequency or urgency, lightheadedness, dizziness, headache, memory loss, rash, abnormal bruising or bleeding, imbalance, focal or generalized weakness, numbness or tingling in arms or legs, back or neck pain, night sweats, or allergy symptoms. The review of systems is otherwise negative other than for that already noted above, and at least 10 systems have been reviewed. Physical Exam Vital Signs Date Time Temp Pulse Resp B/P Pulse Ox O2 Delivery O2 Flow Rate FiO2 06/19/16 20:11 97 18 145/84 96 06/19/16 19:20 98 18 137/87 92 Room Air 06/19/16 17:38 93 Room Air 06/19/16 17:38 93 Room Air 06/19/16 17:34 105 06/19/16 17:33 96 Room Air 06/19/16 17:31 37.5 104 20 152/85 96 Room Air The patient is awake, well-developed and adequately nourished, alert and oriented 3, normocephalic and atraumatic, lying in bed and in no acute distress. HEENT--PERRL, EOMI, mucous membranes moist, and oropharynx normal. Neck--supple, no JVD or bruits, thyroid normal, trachea midline, no adenopathy. Heart--normal S1 and S2, no extra beats, no murmurs, rubs or gallops. Lungs--clear bilaterally with good air movement, no respiratory distress, no accessory muscle use. Abdomen--normal bowel sounds and soft, nontender and nondistended, no hernias or masses, no organomegaly. Extremities--no cyanosis, clubbing or edema. There are good distal pulses b/l. Dermatologic--normal skin turgor, normal color, warm and dry, no abnormal lymph nodes, no rash. Neurologic--cranial nerves II through XII grossly intact, motor and sensory examination normal. Rheumatologic--normal range of motion, nontender, muscles and joints. Psychiatric--normal affect. Diagnostics Laboratory Results Results Past 24 Hours Test 06/19/16 17:35 06/19/16 19:32 Range/Units White Blood Count 12.02 4.8-10.8 K/uL Red Blood Count 4.48 4.2-5.4 M/uL Hemoglobin 13.4 12.0-16.0 g/dL Hematocrit 38.2 37-47 % Mean Corpuscular Volume 85.3 80-100 fL Mean Corpuscular Hemoglobin 29.9 25-34 pg Mean Corpuscular Hemoglobin Concent 35.1 32-36 g/dl Platelet Count 397 130-400 K/uL Mean Platelet Volume 10.9 7.4-10.4 fL Neutrophils (%) (Auto) 67.2 % Lymphocytes (%) (Auto) 24.6 % Monocytes (%) (Auto) 5.4 % Eosinophils (%) (Auto) 2.4 % Basophils (%) (Auto) 0.2 % Neutrophils # (Auto) 8.06 1.4-6.5 K/uL Lymphocytes # (Auto) 2.96 1.2-3.4 K/uL Monocytes # (Auto) 0.65 0.11-0.59 K/uL Eosinophils # (Auto) 0.29 0-0.5 K/uL Basophils # (Auto) 0.03 0-0.2 K/uL RDW Standard Deviation 43.1 36.4-46.3 fL RDW Coefficient of Variation 13.9 11.5-14.5 % Immature Granulocyte % (Auto) 0.2 % Immature Granulocyte # (Auto) 0.03 0.00-0.02 K/uL Prothrombin Time 11.1 9.0-12.0 SECONDS Prothromb Time International Ratio 1.0 0.9-1.1 Activated Partial Thromboplast Time 28.5 21.0-31.0 SECONDS Partial Thromboplastin Ratio 1.1 Sodium Level 142 136-145 mmol/L Potassium Level 3.1 3.5-5.1 mmol/L Chloride Level 102 98-107 mmol/L Carbon Dioxide Level 26 21-32 mmol/L Anion Gap 14.0 3-11 mmol/L Blood Urea Nitrogen 13 7-18 mg/dl Creatinine 1.00 0.60-1.20 mg/dl Estimated GFR () 72.9 Estimated GFR (Non- 62.9 BUN/Creatinine Ratio 13.0 10-20 Random Glucose 108 70-99 mg/dl Calcium Level 9.1 8.5-10.1 mg/dl Magnesium Level 1.8 1.8-2.4 mg/dl Total Bilirubin 0.2 0.2-1 mg/dl Direct Bilirubin < 0.1 0-0.2 mg/dl Aspartate Amino Transf (AST/SGOT) 20 15-37 U/L Alanine Aminotransferase (ALT/SGPT) 47 12-78 U/L Alkaline Phosphatase 127 45-117 U/L Total Creatine Kinase 40 26-192 U/L Creatine Kinase MB < 0.5 0.5-3.6 ng/ml Creatine Kinase MB Ratio 0-3.0 Troponin I < 0.015 0-0.045 ng/ml Total Protein 8.0 6.4-8.2 gm/dl Albumin 3.9 3.4-5.0 gm/dl Lipase 119 73-393 U/L Diagnostic Radiology Patient Name: ALPHONSE SALDAÑA Unit Number: [id number] Dictated: 06/19/161753 Transcribed: 06/19/161753 ARG Printed Date/Time: [~ rep prt dt]/[~ rep prt tm] [~ rep ct labl] - [~ rep ct ivnm] Radiology Department [place], [place] [id number] Dictated: 06/19/161753 Transcribed: 06/19/161753 ARG Printed Date/Time: [~ rep prt dt]/[~ rep prt tm] [~ rep ct labl] - [~ rep ct ivnm] [~ rep ct add3]] CHEST ONE VIEW PORTABLE CLINICAL HISTORY: Right-sided chest pain COMPARISON STUDY: 03/10/2016 FINDINGS: The cardiac and mediastinal contours are normal. There is no evidence of focal pulmonary consolidation. There is no evidence of failure. No pleural effusions are visualized.[ There is mild basilar atelectasis. IMPRESSION: Bibasilar opacities, likely atelectatic. No evidence of focal pulmonary consolidation. No evidence of pneumothorax. No evidence of failure. Electronically signed by: Everett Thompson M.D. 06/19/2016 5:54 PM Dictated Date/Time: 06/19/2016 5:54 PM The status of this report is Signed. Draft = Not yet reviewed or approved by Radiologist. Signed = Reviewed and approved by Radiologist. <AttendingPhy></AttendingPhy> <FamilyPhy>Gwen Gutierrez M.D.</FamilyPhy> < PrimaryPhy>Judy Nelson MD</PrimaryPhy> <UnitNumber>[id number]</UnitNumber > <VisitNumber>[id number]</VisitNumber> <PatientName>ALPHONSE SALDAÑA</PatientName > <DateOfBirth>1960</DateOfBirth> <Location>[facility]</Location> <ServiceDate> 06/19/16</ServiceDate> <MNE>ESINDI</MNE> <OrderingPhy>Delvis Pop D.O.</ OrderingPhy> <OrderingPhyMNE>f rep ord dr isidro</OrderingPhyMNE> <DictatingPhyMNE> f rep dict dr isidro</DictatingPhyMNE> <CCListMNE>f rep ct mne</CCListMNE> < AdmittingPhyMNE>f pt admit dr isidro</AdmittingPhyMNE> <AttendingPhyMNE>f pt attend dr isidro</AttendingPhyMNE> <ConsultingPhyMNE>f pt consult dr isidro</ConsultingPhyMNE> <FamilyPhyMNE>f pt fam dr isidro</FamilyPhyMNE> <OtherPhyMNE>f pt other dr isidro</OtherPhyMNE> < PrimaryPhyMNE>f pt prim care dr isidro</PrimaryPhyMNE> <ReferringPhyMNE>f pt referring dr isidro</ReferringPhyMNE> EKG EKG shows sinus tachycardia at [address] flattening inferiorly and in V4 to V6. Impression Assessment and Plan Precordial chest pain/ST segment changes inferiorly and laterally--the patient will be admitted to the telemetry unit, for serial cardiac enzymes, cardiac rhythm monitoring, and a 2-D echocardiogram with Dopplers. Her pain does not seem to be consistent with a pulmonary embolism, but this may need to be considered if cardiac workup is negative and symptoms persist. Hypertension/hypokalemia --she had recently begun to start retaking her HCTZ 25 mg daily on a regular basis about 2 weeks ago. Which probably has resulted in her hypokalemia. We'll hold the HCTZ for now, and replace potassium both orally and IV, and recheck a BMP and magnesium level in the a.m. we'll continue amlodipine 5 mg by mouth every morning, enteric-coated aspirin 81 mg by mouth every morning, clonidine 0.1 mg by mouth 3 times a day, isosorbide mononitrate ER 30 mg by mouth every morning, and metoprolol tartrate 25 mg by mouth twice a day. GERD--continue pantoprazole 40 mg by mouth every morning. Atelectasis--likely secondary to the decreased inspiratory effort that has happened secondary to the usual postop incisional pain. Discussed with her practicing taking more slow deep breaths. Will not place her on any inhalers or other medications at this time. Anxiety--we'll stay off Lexapro , which she reports caused her headaches, and will have Xanax 0.25 mg by mouth twice a day when necessary available. Level of Care Telemetry Advanced Directives Existing Advance Directive: No Existing Living Will: No Existing Power of Cloth Folder Hand: No Resuscitation Status FULL RESUSCITATION (to use when) VTE Prophylaxis VTE Risk Assessment Done? Y/N: Yes Risk Level: Moderate Given or contraindicated: SCD's Social Service Consult None Apply
[2016-06-19] MEDS ORDERED: POTASSIUM CHLR 10 MEQ / WTR 10 MEQ in PREMIXED WATER 100 ML IV STA (21:00)
[2016-06-19 21:24] VITALS: BP 154/91; PULSE 105; TEMP 36.8; O2SAT 96; Ht 157.5 cm; Wt 74.0 kg
[2016-06-19] MEDS: NSS + 20MEQ KCL 1000ML 1,000 ML IV SCH (21:34)
[2016-06-19 23:04] VITALS: BP 125/84; PULSE 91; TEMP 37; O2SAT 95
[2016-06-19 23:59] VITALS: O2SAT 95
[2016-06-20] VITALS (7 sets, daily range): BP systolic 120–159; BP diastolic 72–88; PULSE 81–124; TEMP 36.9–37.2; O2SAT 92–96
[2016-06-20 03:45] LABS: BASO % 0.2 %; BASO ABS # 0.02 K/uL (0-0.2); COMPLETE YES; EOS % 2.8 %; HEMATOCRIT 35.6 % (37-47); IG% 0.2 %; LYMPH % 21.3 %; LYMPH ABS # 2.22 K/uL (1.2-3.4); MEAN CORPUSCULAR HEMOGLOBIN 29.1 pg (25-34); MEAN CORPUSCULAR HGB CONC 34.3 g/dl (32-36); MEAN PLATELET VOLUME 10.3 fL (7.4-10.4); NEUT % 70.5 %; PLATELET COUNT 327 K/uL (130-400); RED BLOOD COUNT 4.19 M/uL (4.2-5.4); WHITE BLOOD COUNT 10.44 K/uL (4.8-10.8)
[2016-06-20 03:56] LABS: INR 1.1 (0.9-1.1); PARTIAL THROMBOPLASTIN RATIO 1.1; PROTHROMBIN TIME (PATIENT) 11.5 SECONDS (9.0-12.0)
[2016-06-20 04:04] LABS: BLOOD UREA NITROGEN 12 mg/dl (7-18); BUN/CREATININE RATIO 13.7 (10-20); CALCIUM 8.4 mg/dl (8.5-10.1); CARBON DIOXIDE 28 mmol/L (21-32); CHLORIDE 107 mmol/L (98-107); CREATININE 0.86 mg/dl (0.60-1.20); GLUCOSE 112 mg/dl (70-99); MAGNESIUM 1.8 mg/dl (1.8-2.4); POTASSIUM 3.5 mmol/L (3.5-5.1); SODIUM 144 mmol/L (136-145)
[2016-06-20] MEDS ORDERED: CYCLOBENZAPRINE HCL 10 MG TAB PO PRN (07:00)
[2016-06-20] MEDS ORDERED: CLONIDINE HCL 0.1 MG TAB PO SCH (09:00)
[2016-06-20] MEDS ORDERED: ESCITALOPRAM OXALATE 10 MG TAB PO SCH (09:00)
[2016-06-20] MEDS ORDERED: PANTOprazole SOD 40 MG TAB PO SCH (09:00)
[2016-06-20] MEDS ORDERED: AMLODIPINE BESYLATE 5 MG TAB PO SCH (09:00)
[2016-06-20] MEDS ORDERED: METOPROLOL TARTRATE 25 MG TAB PO SCH (09:00)
[2016-06-20] MEDS ORDERED: ASPIRIN 81 MG ECTAB PO SCH (09:00)
[2016-06-20] MEDS ORDERED: ISOSORBIDE MONONITRATE 30 MG TABCR PO SCH (09:00)
[2016-06-20] MEDS: NSS + 20MEQ KCL 1000ML 1,000 ML IV SCH (09:25)
[2016-06-20] MEDS ORDERED: ALPR-412 PO (12:51)
--- NOTE | 2016-06-20 12:56 | Discharge Instructions ---
Discharge Instructions Admission Reason for Admission: Chest pain, low potassium. Discharge Discharge Diagnosis / Problem: Non-cardiac chest pain. Discharge Goals Goal(s): Decrease discomfort, Diagnostic testing Activity Recommendations Activity Limitations: resume your previous activity . Instructions / Follow-Up Instructions / Follow-Up follow up with your PCP in 5-7 days. It was felt that your chest pain was due either to acid reflux or breakthrough anxiety as you recently had a medication change. Because you reported that the Lexapro caused you to have a headache, this medication was stopped. You were given lorazepam as needed in the hospital for anxiety and you had no further chest pain. I am sending you home with a 10 course of alprazolam which can be used twice a day as needed for anxiety. Then you should discuss this condition further with your PCP. Current Hospital Diet Patient's current hospital diet: AHA Diet (Heart Healthy) Discharge Diet Recommended Diet: AHA Diet (Heart Healthy) Pending Studies Studies pending at discharge: no Medical Emergencies . Who to Call and When: Medical Emergencies: If at any time you feel your situation is an emergency, please call 911 immediately. . Non-Emergent Contact Non-Emergency issues call your: Primary Care Provider . . "Provider Documentation" section prepared by Harvey Melton. VTE Core Measure Inpt VTE Proph given/why not?: SCD's
--- NOTE | 2016-06-20 13:20 | Discharge Summary ---
Discharge Summary Admission Date: Jun 19, 2016 at 19:42 Discharge Date: Jun 20, 2016 Discharge Disposition: Home Principal Diagnosis: Chest pain RI ruled out. Problems/Secondary Diagnoses: GERD, Anxiety disorder with breakthrough anxiety. Procedures: None Consultations: None. Medication Reconciliation New Medications: Alprazolam (Alprazolam) 0.25 Mg Tab 1 TAB PO BID PRN for Anxiety/Insomnia for 10 Days, #20 TAB NS Continued Medications: Amlodipine (Norvasc) 5 Mg Tab 5 MG PO QAM, TAB Aspirin (Aspirin Ec) 81 Mg Tab 81 MG PO QAM Clonidine Hcl (Catapres) 0.1 Mg Tab 0.1 MG PO TID, TAB Cyclobenzaprine Hcl (Flexeril) 10 Mg Tab 10 MG PO TID PRN for Pain, #21 TAB Hydrochlorothiazide (Hydrochlorothiazide) 12.5 Mg Tab 1 TAB PO DAILY PRN for SWELLING, TAB 3 Refills Isosorbide Mononitrate (Isosorbide Mononitrate ER) 30 Mg Tabcr 30 MG PO QAM Metoprolol Tartrate (Lopressor) (Lopressor) 25 Mg Tab 25 MG PO BID, TAB Oxycodone/Acetaminophen 5MG/325MG (Percocet 5MG/325MG) Tab 1 TABLET PO Q4H PRN for Pain, #30 TAB Pantoprazole (Protonix) 40 Mg Tab 40 MG PO QAM, #30 TAB Discontinued Medications: Escitalopram (Lexapro) 10 Mg Tab 10 MG PO QAM, TAB Discharge Exam A 10 system review was performed and all were negative. Positives were placed in the subjective section. GEN: Awake, alert, and oriented x 3. Not in acute distress HEENT: Tm's intact, no inflammation, EOMI, PERRLA, MMM Neck: Soft, supple Lungs: CTA b/l, no r/r/w Heart: REG, nrl S1S2 without murmurs, rubs or gallops Abdomen: Soft, NT, ND, + BS EXT: No C/C/E NEURO: CN's II-XII grossly intact, non-focal Skin: warm, dry, no rashes PSYCH: pleasant, cooperative. Hospital Course Patient was admitted through the ED having chest pain, substernally. She has a history of reflux and takes a ppi daily. Also she recently was changed from alprazolam BID to Lexapro for anxiety and noted a headache and increased anxiety. She was admitted and had serial troponins. All were negative. She was given prn lorazepam IV in the hospital and did not have further symptoms of chest pain or anxiety. Lexapro was held due to headache. She was discharged to home. She was given alprazolam 0.25mg to use bid prn anxiety #20/0-refills and told to follow up with her PCP in 5-7 days to discuss further treatment of her anxiety. Total Time Spent: Greater than 30 minutes This includes examination of the patient, discharge planning, medication reconciliation, and communication with other providers. Discharge Instructions Please refer to the electronic Patient Visit Report (Discharge Instructions) for additional information.
[2017-02-12] MEDS ORDERED: PANT40TA PO (14:43)
[2017-02-12] MEDS ORDERED: ASPI81TA28 PO (14:43)
[2017-02-12] MEDS ORDERED: CTP/1 PO (14:43)
[2017-02-12] MEDS ORDERED: AMLO-110 PO (14:43)
[2017-02-12] MEDS ORDERED: ISOS-11 PO (14:43)
[2017-02-12] MEDS ORDERED: METO25TA56 PO (14:43)
[2017-02-12] MEDS ORDERED: [UNRECOGNIZED DRUG - CODE] NAE (18:56)
[2017-02-12] MEDS ORDERED: FLUT0.15 NAE (18:56)
[2017-02-12] MEDS ORDERED: ALPR0.25 PO (23:50)
[2017-02-13] MEDS ORDERED: PANT40TA PO (14:30)
== END 2016-06-20 14:13 | disposition home or self-care (01) ==
LOC: ENRESERVDT → ENRESERVTM → C.EDB 17:24 → C.2T 19:42 → EEVIPCON 19:42
PROVIDERS: ADMIT Hospitalist; ATTEND Hospitalist
DX: R07.89 Other chest pain (principal); E87.6 Hypokalemia; F41.9 Anxiety disorder, unspecified; I10 Essential (primary) hypertension; K21.9 Gastro-esophageal reflux disease without esophagitis; R51 Headache; Z82.49 Family history of ischemic heart disease and other diseases of the circulatory system

== ENCOUNTER 2016-08-12 12:04 | Emergency (ER) | payer OTHER ==
[~2016-08-12] VITALS: Ht 157.5 cm; Wt 76.3 kg
[~2016-08-12 12:04] MED LIST changes: -ALPR-411 PO; -ESCI10TA17 PO
[2016-08-12 12:06] VITALS: PULSE 76; TEMP 36.6; O2SAT 96; Ht 157.5 cm; Wt 76.3 kg
--- NOTE | 2016-08-12 12:56 | DIAGNOSTIC IMAGING REPORT ---
LEFT WRIST 4 VIEWS HISTORY: Left wrist pain. COMPARISON: None. FINDINGS: There is no fracture or dislocation. Soft tissues are unremarkable. No radiopaque foreign bodies. 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 IMPRESSION: No fractures. Electronically signed by: Carlito Lawrence M.D. 08/12/2016 12:55 PM Dictated Date/Time: 08/12/2016 12:53 PM
--- NOTE | 2016-08-12 14:32 | EMERGENCY ROOM VISIT NOTE ---
ED Visit Note First contact with patient: 12:10 CHIEF COMPLAINT: Left wrist pain 2 days HISTORY OF PRESENT ILLNESS: Patient is a [id number] 56-year-old white female who presents to emergency department complaining of left wrist pain 2 days. She denies any direct trauma or falls, but does note that she was more active recently moving some boxes. She complains of pain in the dorsal aspect of the wrist that radiates towards the thumb. It is worse with movement including extension. She tried Tylenol, a prescription muscle relaxer and Biofreeze. She rates her discomfort a 9/10. There is no numbness of the hand or weakness of the fingers. REVIEW OF SYSTEMS: Review of systems as per HPI. All other systems reviewed were negative. At least 6 systems reviewed. PMH: Electronic medical records are reviewed and summarized as above/below. See Problem List. SOCIAL HISTORY: Patient lives at home. Nonsmoker. PHYSICAL EXAM: Vital Signs: Reviewed Nurse's notes. CONSTITUTIONAL: Patient is a well-appearing 56-year-old white female who is awake and alert and in no acute distress. MUSCULOSKELETAL: Examination of the left wrist does not demonstrate any deformity. No erythema, swelling or increased warmth or induration. She has discomfort to palpation diffusely over the dorsal aspect of the wrist. There is no anatomic snuffbox tenderness. Negative David' s test. She has discomfort with wrist extension. There is no pain over the medial or lateral epicondyle at the elbow. She can move her fingers normally. Sensation is intact. Capillary refills less than 2 seconds. EMERGENCY DEPARTMENT COURSE: An X-ray of the left wrist does not demonstrate any acute bony abnormalities. A wrist lacer was placed on the wrist under my supervision, to insure proper positioning. Supportive care measures were discussed. Patient was encouraged to ice, use ibuprofen and wear the splint. If his symptoms are not improving she can follow-up with orthopedics or her PCP. Differential diagnoses also entertained included fracture, sprain, tendinitis, bursitis, among others. LEFT WRIST 4 VIEWS HISTORY: Left wrist pain. COMPARISON: None. FINDINGS: There is no fracture or dislocation. Soft tissues are unremarkable. No radiopaque foreign bodies. 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 IMPRESSION: No fractures. Problem List Medical Problems: (1) Hypertension Status: Chronic (2) Kidney stones Status: Resolved (3) Renal calculus, left Status: Resolved Surgical Problems: (1) History of tubal ligation Status: Resolved Current/Historical Medications Scheduled Amlodipine (Norvasc), 5 MG PO QAM Aspirin (Aspirin Ec), 81 MG PO QAM Clonidine Hcl (Catapres), 0.1 MG PO TID Isosorbide Mononitrate (Isosorbide Mononitrate ER), 30 MG PO QAM Metoprolol Tartrate (Lopressor) (Lopressor), 25 MG PO BID Pantoprazole (Protonix), 40 MG PO QAM Scheduled PRN Cyclobenzaprine Hcl (Flexeril), 10 MG PO TID PRN for Pain Allergies Coded Allergies: Antihistamines, Chlorpheniramine-ty (Verified Allergy, Unknown, INCREASED BP, 08/12/16) Antihistamines, Diphenhydramine-typ (Verified Allergy, Unknown, INCREASED BP, 08/12/16) Antihistamines, Loratadine-type (Verified Allergy, Unknown, INCREASED BP, 08/12/16) Lisinopril (Verified Allergy, Unknown, INCREASED BLOODPRESSURE, 08/12/16) Fentanyl (Verified Adverse Reaction, Intermediate, Decreased oxygen saturation, 08/12/16) Patient arrived to PACU sedated with O2 sats in 80's despite Nasal Airway and O2 via mask at 15LPM. Narcan administered per MD orders (0.2mg x2). Patient's mental status improved, O2 sats improved. Vital Signs Date Time Temp Pulse Resp B/P Pulse Ox O2 Delivery O2 Flow Rate FiO2 08/12/16 14:45 138/88 08/12/16 13:56 142/90 08/12/16 12:06 36.6 76 18 146/94 96 Room Air Departure Information Impression Primary Impression: Wrist pain, left Referrals Judy Nelson MD (PCP) Patient Instructions My [facility] Additional Instructions Ibuprofen(Motrin, Advil) may be used for fever or pain. Use 600mg every six hours as needed. Take with food. Avoid using more than 2400mg in a 24 hour period. Do not use 2400mg per day for more than three consecutive days without physician direction. Prolonged inappropriate use can lead to stomach upset or ulcers. This medication can be taken if you need to drive, work, or perform activities which may be dangerous when taking narcotic pain medication. (AND/OR) Acetaminophen(Tylenol) may be used for fever or pain. Use 1000mg every six hours as needed. Avoid using more than 3000mg in a 24 hour period. This medication can be taken if you need to drive, work, or perform activities which may be dangerous when taking narcotic pain medication. Ice compresses for 20 minutes at a time four times daily for 2-3 days. Use the wrist lacer as instructed. Rest and elevate your injury. Continue current medications. Return to the ER immediately for any numbness, tingling, severe pain, extreme swelling in the extremity or as needed. Followup with your family doctor or orthopedic surgery if no improvement in 5-7 days.
[2016-08-12 14:45] VITALS: BP 138/88
[2017-02-12] MEDS ORDERED: ISOS-11 PO (14:43)
[2017-02-12] MEDS ORDERED: METO25TA56 PO (14:43)
[2017-02-12] MEDS ORDERED: ASPI81TA28 PO (14:43)
[2017-02-12] MEDS ORDERED: CTP/1 PO (14:43)
[2017-02-12] MEDS ORDERED: AMLO-110 PO (14:43)
[2017-02-12] MEDS ORDERED: PANT40TA PO (14:43)
[2017-02-12] MEDS ORDERED: [UNRECOGNIZED DRUG - CODE] NAE (18:56)
[2017-02-12] MEDS ORDERED: FLUT0.15 NAE (18:56)
[2017-02-12] MEDS ORDERED: ALPR0.25 PO (23:50)
[2017-02-13] MEDS ORDERED: PANT40TA PO (14:30)
== END 2016-08-12 14:46 | disposition home or self-care (01) ==
LOC: C.EDB 12:05 → C.EDD 14:46
DX: M25.532 Pain in left wrist (principal); I10 Essential (primary) hypertension; Z98.51 Tubal ligation status; Z79.82 Long term (current) use of aspirin

== ENCOUNTER 2016-10-04 23:34 | Emergency (ER) | payer OTHER ==
[~2016-10-04] VITALS: Ht 157.5 cm; Wt 76.7 kg
[~2016-10-04 23:34] MED LIST changes: -HYDR12.55 PO; -OXYC-57 PO
[2016-10-04 23:38] VITALS: TEMP 36.6; Ht 157.5 cm; Wt 76.7 kg
--- NOTE | 2016-10-05 00:07 | EMERGENCY ROOM VISIT NOTE ---
History First contact with patient: 23:41 Chief Complaint: ANKLE PAIN Stated Complaint: SPRAINED RIGHT ANKLE History of Present Illness The patient is a 56 year old female who presents to the Emergency Room with complaints of right ankle injury tonight while walking down steps and missing the last 2 steps. She reports inverting the ankle. She denies any pain extending into the foot or leg. Denies paresthesias or numbness of the right foot or toes. The patient denies any prior history of right ankle injuries. She denies any other injuries from this fall, and rates her discomfort a 9 out of 10. Review of Systems 10 system review was performed and was negative except for pertinent positives and negatives as indicated in history of present illness Past Medical/Surgical History Medical Problems: (1) Hypertension (2) Kidney stones (3) Renal calculus, left Surgical Problems: (1) History of tubal ligation Family History FH: hypertension Kidney stones Social History Smoking Status: Never Smoker Alcohol Use: none Drug Use: none Marital Status: Housing Status: lives with family Occupation Status: unemployed Current/Historical Medications Scheduled Alprazolam (Xanax), 0.25 MG PO BID Amlodipine (Norvasc), 5 MG PO QAM Aspirin (Aspirin Ec), 81 MG PO QAM Clonidine Hcl (Catapres), 0.1 MG PO TID Isosorbide Mononitrate (Isosorbide Mononitrate ER), 30 MG PO QAM Metoprolol Tartrate (Lopressor) (Lopressor), 25 MG PO BID Pantoprazole (Protonix), 40 MG PO QAM Scheduled PRN Cyclobenzaprine Hcl (Flexeril), 10 MG PO TID PRN for Pain Allergies Coded Allergies: Antihistamines, Chlorpheniramine-ty (Verified Allergy, Unknown, INCREASED BP, 10/04/16) Antihistamines, Diphenhydramine-typ (Verified Allergy, Unknown, INCREASED BP, 10/04/16) Antihistamines, Loratadine-type (Verified Allergy, Unknown, INCREASED BP, 10/04/16) Lisinopril (Verified Allergy, Unknown, INCREASED BLOODPRESSURE, 10/04/16) Fentanyl (Verified Adverse Reaction, Intermediate, Decreased oxygen saturation, 10/04/16) Patient arrived to PACU sedated with O2 sats in 80's despite Nasal Airway and O2 via mask at 15LPM. Narcan administered per MD orders (0.2mg x2). Patient's mental status improved, O2 sats improved. Physical Exam Vital Signs Date Time Temp Pulse Resp B/P Pulse Ox O2 Delivery O2 Flow Rate FiO2 10/04/16 23:38 36.6 66 20 142/89 96 Room Air Physical Exam CONSTITUTIONAL: Healthy and well nourished. Alert and oriented X 3 with positive affect. She does not appear in any acute distress. HEENT: Normocephalic, atraumatic. Pupils equal, round and reactive. NECK: Full active range of motion without discomfort. MUSCULOSKELETAL: Examination of the right ankle shows minimal lateral edema. No ecchymosis or open wounds noted. She has mild tenderness over the lateral malleolus and ligament. Minimal tenderness over the deltoid ligament. Negative anterior draw. No tenderness to palpation across the dorsal midfoot, metatarsals, phalanges, calcaneus or Achilles tendon. Pedal pulses are intact. INTEGUMENTARY: No rash or other significant dermatologic conditions noted. NEUROLOGIC: Right foot and toes are sensory intact. Medical Decision & Procedures ER Provider Diagnostic Interpretation: My interpretation of right ankle x-rays does not show any acute fracture, dislocation or ankle mortise asymmetry. Radiologist report is pending. ED Course Patient history and physical exam were performed. Nurse's notes were reviewed. Vital signs were reviewed and grossly normal. The patient refused any analgesics on initial exam. X-rays of the right ankle were normal. The patient was dispensed an ankle brace. She reports having crutches at home. She was instructed to ice and elevate the ankle for swelling. Range of motion exercises to prevent stiffness. Ibuprofen and Tylenol in alternating fashion as needed for additional pain relief. The patient reports that she has a doctor 's appointment next Monday, or 6 days from now. The patient was happy with plan of care, and rated her discomfort a 4 out of 10 at the time of discharge. Medical Decision Impression Primary Impression: Right ankle sprain Departure Information Referrals Judy Nelson MD (PCP) Patient Instructions My [facility] Problem Qualifiers Primary Impression: Right ankle sprain Encounter type: initial encounter Involved ligament of ankle: unspecified ligament Qualified Codes: S93.401A - Sprain of unspecified ligament of right ankle, initial encounter
[2016-10-05 00:25] VITALS: BP 141/80; PULSE 61; O2SAT 94
--- NOTE | 2016-10-05 06:49 | DIAGNOSTIC IMAGING REPORT ---
RIGHT ANKLE MIN 3 VIEWS ROUTINE CLINICAL HISTORY: Right ankle pain following injury. COMPARISON: None FINDINGS: Alignment of the right ankle is anatomic. There is no acute fracture. There is minimal posterior calcaneal spurring at the insertion of the Achilles. Talar dome is intact. IMPRESSION: No acute fracture or dislocation of the right ankle. Electronically signed by: Juni Dotson M.D. 10/05/2016 6:47 AM Dictated Date/Time: 10/05/2016 6:46 AM
[2017-02-12] MEDS ORDERED: CTP/1 PO (14:43)
[2017-02-12] MEDS ORDERED: AMLO-110 PO (14:43)
[2017-02-12] MEDS ORDERED: PANT40TA PO (14:43)
[2017-02-12] MEDS ORDERED: ASPI81TA28 PO (14:43)
[2017-02-12] MEDS ORDERED: ISOS-11 PO (14:43)
[2017-02-12] MEDS ORDERED: METO25TA56 PO (14:43)
[2017-02-12] MEDS ORDERED: [UNRECOGNIZED DRUG - CODE] NAE (18:56)
[2017-02-12] MEDS ORDERED: FLUT0.15 NAE (18:56)
[2017-02-12] MEDS ORDERED: ALPR0.25 PO (23:50)
[2017-02-13] MEDS ORDERED: PANT40TA PO (14:30)
== END 2016-10-05 00:26 | disposition home or self-care (01) ==
LOC: C.EDB 23:35 → C.EDA 10-05 00:26
DX: S93.401A Sprain of unspecified ligament of right ankle, initial encounter (principal); W10.9XXA Fall (on) (from) unspecified stairs and steps, initial encounter; I10 Essential (primary) hypertension; Z87.442 Personal history of urinary calculi; Z82.49 Family history of ischemic heart disease and other diseases of the circulatory system; Z84.1 Family history of disorders of kidney and ureter; Z79.82 Long term (current) use of aspirin; Z79.899 Other long term (current) drug therapy

== ENCOUNTER → 2016-11-15 | Outpatient (CLI) | payer OTHER ==
[~2016-11-15] MED LIST changes: +ALPR0.25 PO; +AMLO-110 PO; +ASPI81TA28 PO; +CTP/1 PO; +FLUT0.15 NAE; +ISOS-11 PO; +METO25TA56 PO; +PANT40TA PO; +[UNRECOGNIZED DRUG - CODE] NAE
[2016-11-15 13:19] LABS: BLOOD UREA NITROGEN 9 mg/dl (7-18); BUN/CREATININE RATIO 9.2 (10-20); CALCIUM 8.6 mg/dl (8.5-10.1); CARBON DIOXIDE 28 mmol/L (21-32); CHLORIDE 107 mmol/L (98-107); GLUCOSE 90 mg/dl (70-99); POTASSIUM 3.7 mmol/L (3.5-5.1); SODIUM 142 mmol/L (136-145)
== END | disposition home or self-care (01) ==
LOC: C.LAB 10:30
PROVIDERS: ATTEND Family Medicine
DX: I10 Essential (primary) hypertension (principal)

== ENCOUNTER → 2017-02-06 | Outpatient (CLI) | payer OTHER ==
[2017-02-06 13:48] LABS: BLOOD UREA NITROGEN 13 mg/dl (7-18); BUN/CREATININE RATIO 14.3 (10-20); CALCIUM 8.6 mg/dl (8.5-10.1); CARBON DIOXIDE 28 mmol/L (21-32); CHLORIDE 108 mmol/L (98-107); GLUCOSE 93 mg/dl (70-99); POTASSIUM 3.5 mmol/L (3.5-5.1); SODIUM 141 mmol/L (136-145)
[2017-02-06 13:59] LABS: CHOLESTEROL 195 mg/dl (0-200); CHOLESTEROL/HDL RATIO 5.4; HDL CHOLESTEROL 36 mg/dl; LDL CHOLESTEROL CALCULATED 98 mg/dl; TRIGLYCERIDES 304 mg/dl (0-150); VERY LOW DENSITY LIPOPROT CALC 61 mg/dl
== END | disposition home or self-care (01) ==
LOC: C.LAB 12:08
PROVIDERS: ATTEND Family Medicine
DX: Z00.00 Encounter for general adult medical examination without abnormal findings (principal); M79.673 Pain in unspecified foot; Z13.220 Encounter for screening for lipoid disorders

== ENCOUNTER 2017-02-12 18:20 | Observation (INO) | payer OTHER ==
[~2017-02-12] VITALS: Ht 157.5 cm; Wt 72.7 kg
[~2017-02-12 18:20] MED LIST changes: -ALPR0.25 PO; -FLUT0.15 NAE; -[UNRECOGNIZED DRUG - CODE] NAE
[2017-02-12] MEDS ORDERED: KETOROLAC TROMETHAMINE 30 MG/ML VIAL IV STA (18:35)
[2017-02-12] MEDS ORDERED: ASPIRIN 81 MG CHEW PO STA (18:35)
[2017-02-12] MEDS ORDERED: SODIUM CHLORIDE 0.9% 500ML 500 ML IV STA (18:35)
[2017-02-12] MEDS ORDERED: FLUT0.15 NAE ×2 (18:56)
[2017-02-12] MEDS ORDERED: [UNRECOGNIZED DRUG - CODE] NAE ×2 (18:56)
[2017-02-12 18:59] LABS: BASO % 0.3 %; BASO ABS # 0.03 K/uL (0-0.2); COMPLETE YES; EOS % 2.7 %; HEMATOCRIT 40.8 % (37-47); IG% 0.1 %; LYMPH % 36.6 %; LYMPH ABS # 3.65 K/uL (1.2-3.4); MEAN CELL VOLUME 86.3 fL (80-100); MEAN CORPUSCULAR HEMOGLOBIN 29.4 pg (25-34); MEAN CORPUSCULAR HGB CONC 34.1 g/dl (32-36); MEAN PLATELET VOLUME 10.9 fL (7.4-10.4); NEUT % 53.3 %; PLATELET COUNT 355 K/uL (130-400); RED BLOOD COUNT 4.73 M/uL (4.2-5.4); WHITE BLOOD COUNT 9.96 K/uL (4.8-10.8)
[2017-02-12 19:17] LABS: BLOOD UREA NITROGEN 14 mg/dl (7-18); BUN/CREATININE RATIO 13.6 (10-20); CALCIUM 9.1 mg/dl (8.5-10.1); CARBON DIOXIDE 29 mmol/L (21-32); CHLORIDE 105 mmol/L (98-107); GLUCOSE 104 mg/dl (70-99); POTASSIUM 3.4 mmol/L (3.5-5.1); SODIUM 141 mmol/L (136-145)
--- NOTE | 2017-02-12 19:35 | DIAGNOSTIC IMAGING REPORT ---
CHEST ONE VIEW PORTABLE CLINICAL HISTORY: 56 years-old Female presenting with Chest Pain. TECHNIQUE: Portable upright AP view of the chest was obtained. COMPARISON: 06/19/2016. FINDINGS: Cardiomediastinal silhouette normal. Lungs and pleural spaces clear. Osseous structures normal. Upper abdomen normal. IMPRESSION: 1. No acute cardiopulmonary disease. Electronically signed by: Errol Jeffers M.D. 02/12/2017 7:33 PM Dictated Date/Time: 02/12/2017 7:33 PM
[2017-02-12] MEDS ORDERED: NITROGLYCERIN 0.4 MG SL PER TAB CHARGE SL PRN (21:15)
[2017-02-12] MEDS ORDERED: MoRPHine SULFATE 2 MG/ML CARP IV PRN (21:15)
[2017-02-12] MEDS ORDERED: ALPRAZOLAM 0.25 MG TAB PO PRN (21:30)
--- NOTE | 2017-02-12 21:35 | History and Physical ---
History & Physical Date & Time of Service: Feb 12, 2017 at 21:18 Chief Complaint: Headache,Acid Reflux Primary Care Physician: Judy Nelson MD History of Present Illness Source: patient 56 y/o F Hx HTN, GERD - presents with 2 episodes of central CP over past 2 days lasting approximately 15 min. The pt had apparently told the ER attending that she had radiation to her arm, SOB and that the pain was exertional. At the time that I evaluated the pt, she states that she had central CP at rest - the pain felt like the pain she has with reflex although more severe and longer lasting. She denied radiation, SOB, N/V - admits to diaphoresis. Initial troponin and EKG are not consistent with acute ischemia. The pt was admitted in 2014 with similar complaints and dudley a normal nuclear stress test at the time. Past Medical/Surgical History Medical Problems: (1) Hypertension Status: Chronic (2) Kidney stones Status: Resolved (3) Renal calculus, left Status: Resolved Surgical Problems: (1) History of tubal ligation Status: Resolved Family History FH: hypertension Kidney stones Social History Smoking Status: Never Smoker Drug Use: none Marital Status: Housing status: lives with family Occupational Status: unemployed Multi-Drug Resistant Organisms History of MDRO: No Allergies Coded Allergies: Antihistamines, Chlorpheniramine-ty (Verified Allergy, Unknown, INCREASED BP, 10/04/16) Antihistamines, Diphenhydramine-typ (Verified Allergy, Unknown, INCREASED BP, 10/04/16) Antihistamines, Loratadine-type (Verified Allergy, Unknown, INCREASED BP, 10/04/16) Lisinopril (Verified Allergy, Unknown, INCREASED BLOODPRESSURE, 10/04/16) Fentanyl (Verified Adverse Reaction, Intermediate, Decreased oxygen saturation, 10/04/16) Patient arrived to PACU sedated with O2 sats in 80's despite Nasal Airway and O2 via mask at 15LPM. Narcan administered per MD orders (0.2mg x2). Patient's mental status improved, O2 sats improved. Home Medications Scheduled Amlodipine (Norvasc), 5 MG PO QAM Aspirin (Aspirin Ec), 81 MG PO QAM Clonidine Hcl (Catapres), 0.1 MG PO TID Fluticasone Propionate (Nasal) (Flonase Allergy Relief), 1 SPRAY TEJAS DAILY Isosorbide Mononitrate (Isosorbide Mononitrate ER), 30 MG PO QAM Metoprolol Tartrate (Lopressor) (Lopressor), 25 MG PO BID Pantoprazole (Protonix), 40 MG PO QAM Sodium Chloride (Inhalant) (Nasal Mist), 1 SPRAY TEJAS PRN Scheduled PRN Alprazolam (Xanax), 0.25 MG PO BID PRN for Anxiety Review of Systems Constitutional: No fever, No chills, No sweats Eyes: No worsening of vision ENT: No hearing loss Respiratory: No cough, No sputum, No wheezing Cardiovascular: + chest pain, No orthopnea Abdomen: No pain, No nausea Musculoskeletal: No joint pain Genitourinary - Female: No dysuria, No urinary frequency, No urinary urgency Neurologic: No memory loss, No paralysis, No weakness Psychiatric: No depression symptoms Endocrine: No fatigue Hematologic / Lymphatic: No abnormal bleeding/bruising Integumentary: No rash Allergic / Immunologic: No environmental allergies Physical Exam Vital Signs Date Time Temp Pulse Resp B/P (MAP) Pulse Ox O2 Delivery O2 Flow Rate FiO2 02/12/17 21:00 74 18 149/80 98 Room Air 02/12/17 20:00 84 18 152/84 98 Room Air 02/12/17 18:22 36.7 80 20 166/85 97 Room Air General Appearance: WD/WN, no apparent distress Head: normocephalic Eyes: normal inspection ENT: normal ENT inspection, pharynx normal Neck: supple, no JVD Respiratory/Chest: chest non-tender, lungs clear Cardiovascular: regular rate, rhythm, no edema, no gallop Abdomen/GI: normal bowel sounds, non tender, soft Back: normal inspection, no CVA tenderness Extremities/Musculoskelatal: normal inspection, no calf tenderness, normal capillary refill 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, no motor/sensory deficits, alert Skin: normal color, warm/dry, no rash Diagnostics Laboratory Results Results Past 24 Hours Test 02/12/17 18:50 Range/Units White Blood Count 9.96 4.8-10.8 K/uL Red Blood Count 4.73 4.2-5.4 M/uL Hemoglobin 13.9 12.0-16.0 g/dL Hematocrit 40.8 37-47 % Mean Corpuscular Volume 86.3 80-100 fL Mean Corpuscular Hemoglobin 29.4 25-34 pg Mean Corpuscular Hemoglobin Concent 34.1 32-36 g/dl Platelet Count 355 130-400 K/uL Mean Platelet Volume 10.9 7.4-10.4 fL Neutrophils (%) (Auto) 53.3 % Lymphocytes (%) (Auto) 36.6 % Monocytes (%) (Auto) 7.0 % Eosinophils (%) (Auto) 2.7 % Basophils (%) (Auto) 0.3 % Neutrophils # (Auto) 5.30 1.4-6.5 K/uL Lymphocytes # (Auto) 3.65 1.2-3.4 K/uL Monocytes # (Auto) 0.70 0.11-0.59 K/uL Eosinophils # (Auto) 0.27 0-0.5 K/uL Basophils # (Auto) 0.03 0-0.2 K/uL RDW Standard Deviation 42.9 36.4-46.3 fL RDW Coefficient of Variation 13.7 11.5-14.5 % Immature Granulocyte % (Auto) 0.1 % Immature Granulocyte # (Auto) 0.01 0.00-0.02 K/uL Sodium Level 141 136-145 mmol/L Potassium Level 3.4 3.5-5.1 mmol/L Chloride Level 105 98-107 mmol/L Carbon Dioxide Level 29 21-32 mmol/L Anion Gap 7.0 3-11 mmol/L Blood Urea Nitrogen 14 7-18 mg/dl Creatinine 1.00 0.60-1.20 mg/dl Est Creatinine Clear Calc Drug Dose 58.9 ml/min Estimated GFR () 72.9 Estimated GFR (Non- 62.9 BUN/Creatinine Ratio 13.6 10-20 Random Glucose 104 70-99 mg/dl Calcium Level 9.1 8.5-10.1 mg/dl Total Creatine Kinase 37 26-192 U/L Creatine Kinase MB < 0.5 0.5-3.6 ng/ml Creatine Kinase MB Ratio 0-3.0 Troponin I < 0.015 0-0.045 ng/ml EKG NSR, INf T wave inversion Impression Assessment and Plan 56 y/o F Hx HTN, GERD - presents with 2 episodes of central CP over past 2 days lasting approximately 15 min. The pt had apparently told the ER attending that she had radiation to her arm, SOB and that the pain was exertional. At the time that I evaluated the pt, she states that she had central CP at rest - the pain felt like the pain she has with reflex although more severe and longer lasting. 1) CP - would place at low probability at present, however, the description of the symptoms provided to the ER were slightlymore concerning. She will be observed on telemetry, serial troponin ordered, provided with ASA and NTG/ morphine PRN. We will continue her Bblocker - she is taking Imdur without any documented history of CAD - this may be due to presumed esophageal spasm or vasospasm-related CP. 2) HTN - Cont Bbolcker, Imdur 3) GERD - cont PPi Full code - heparin prophylaxis Total time for this admit including review of labs, meds, imaging - discussion with pt and ER attending - 35 min Level of Care Telemetry Resuscitation Status FULL RESUSCITATION VTE Prophylaxis VTE Risk Assessment Done? Y/N: Yes Risk Level: Low Given or contraindicated: Unfractionated heparin SQ
[2017-02-12] MEDS ORDERED: IV FLUIDS COMPLETED PRN (21:45)
[2017-02-12 22:19] VITALS: BP 173/98; PULSE 77; TEMP 36.9; O2SAT 94
[2017-02-12 23:08] LABS: URINE APPEARANCE CLEAR (CLEAR); URINE BILIRUBIN NEG (NEG); URINE COLOR YELLOW; URINE EPITHELIAL CELL AUTO >30 /lpf (0-5); URINE NITRITE NEG (NEG); URINE PH 7.5 (4.5-7.5); URINE SPECIFIC GRAVITY 1.012 (1.000-1.030); UROBILINOGEN NEG (NEG)
[2017-02-12 23:12] LABS: MANUAL MICROSCOPIC REQUIRED? NO; REVIEW REQ? NO
[2017-02-12 23:26] VITALS: BP 173/98; PULSE 77; TEMP 36.9; O2SAT 94; Ht 157.5 cm; Wt 72.7 kg
[2017-02-12 23:46] VITALS: BP 134/80; PULSE 64; TEMP 36.6; O2SAT 94
[2017-02-12] MEDS ORDERED: ALPR0.25 PO ×2 (23:50)
[2017-02-13] VITALS (7 sets, daily range): BP systolic 114–166; BP diastolic 72–94; PULSE 58–90; TEMP 36.5–36.7; O2SAT 92–96
--- NOTE | 2017-02-13 01:03 | EMERGENCY ROOM VISIT NOTE ---
History Report prepared by Lorena: Amelie Mendez Under the Supervision of: Bandar AlcazarO. First contact with patient: 18:26 Chief Complaint: chest pain Stated Complaint: HEADACHE,ACID REFLUX History of Present Illness The patient is a 56 year old female who presents to the Emergency Room with complaints of intermittent chest pains beginning yesterday. She reports chest tightness that is worsened with exertion and alleviated with rest. Each episode of pain lasts for about 15-20 minutes at a time. She rates her pain as a 7/10 in severity. She gets left arm pain with her chest pain. The patient has chronic left wrist pain due to arthritis, but she states that her current arm pain feels different from that pain. She also notes shortness of breath. She has had a headache for a week that improves with ibuprofen. Yesterday the patient started to experience rhinorrhea and cough. The patient denies fevers, jaw pain, recent longs trips, recent surgeries. She has a history of hypertension. She takes aspirin daily. Source of History: patient Onset: yesterday Position: chest Symptom Intensity: 7/10 Quality: other (tightness) Timing: intermittent Modifying Factors (Worsening): exertion Modifying Factors (Relieving): rest Associated Symptoms: + headache, + cough, + SOB, No fevers Note: Pt has left arm pain with her chest pain. Review of Systems See HPI for pertinent positives & negatives. A total of 10 systems reviewed and were otherwise negative. Past Medical & Surgical Medical Problems: (1) Anxiety Disorder, Unspecified (2) Chest pain (3) Heart disease (4) Hypertension (5) Kidney stones (6) Peritoneal Adhesions (Postprocedural) (Postinfection) (7) Renal calculus, left Surgical Problems: (1) History of dental extraction (2) History of partial hysterectomy (3) History of tubal ligation Family History FH: hypertension Kidney stones Social History Smoking Status: Never Smoker Alcohol Use: none Drug Use: none Marital Status: Housing Status: lives with family Occupation Status: unemployed Current/Historical Medications Scheduled Amlodipine (Norvasc), 5 MG PO QAM Aspirin (Aspirin Ec), 81 MG PO QAM Clonidine Hcl (Catapres), 0.1 MG PO TID Fluticasone Propionate (Nasal) (Flonase Allergy Relief), 1 SPRAY TEJAS DAILY Isosorbide Mononitrate (Isosorbide Mononitrate ER), 30 MG PO QAM Metoprolol Tartrate (Lopressor) (Lopressor), 25 MG PO BID Pantoprazole (Protonix), 40 MG PO QAM Sodium Chloride (Inhalant) (Nasal Mist), 1 SPRAY TEJAS PRN Scheduled PRN Alprazolam (Xanax), 0.25 MG PO BID PRN for Anxiety Allergies Coded Allergies: Antihistamines, Chlorpheniramine-ty (Verified Allergy, Unknown, INCREASED BP, 10/04/16) Antihistamines, Diphenhydramine-typ (Verified Allergy, Unknown, INCREASED BP, 10/04/16) Antihistamines, Loratadine-type (Verified Allergy, Unknown, INCREASED BP, 10/04/16) Lisinopril (Verified Allergy, Unknown, INCREASED BLOODPRESSURE, 10/04/16) Fentanyl (Verified Adverse Reaction, Intermediate, Decreased oxygen saturation, 10/04/16) Patient arrived to PACU sedated with O2 sats in 80's despite Nasal Airway and O2 via mask at 15LPM. Narcan administered per MD orders (0.2mg x2). Patient's mental status improved, O2 sats improved. Physical Exam Vital Signs Date Time Temp Pulse Resp B/P (MAP) Pulse Ox O2 Delivery O2 Flow Rate FiO2 02/12/17 21:00 74 18 149/80 98 Room Air 02/12/17 20:00 84 18 152/84 98 Room Air 02/12/17 18:22 36.7 80 20 166/85 97 Room Air Physical Exam GENERAL: alert, well appearing, sitting up in bed, well nourished, no distress, non-toxic EYE EXAM: normal conjunctiva OROPHARYNX: no exudate, no erythema, lips, buccal mucosa, and tongue normal and mucous membranes are moist NECK: supple, no nuchal rigidity, no adenopathy, non-tender LUNGS: Clear to auscultation. Normal chest wall mechanics HEART: no murmurs, S1 normal and S2 normal CHEST: No reproducible anterior chest wall tenderness. ABDOMEN: abdomen soft, non-tender, normo-active bowel sounds, no masses, no rebound or guarding. BACK: Back is symmetrical on inspection and there is no deformity, no midline tenderness, no CVA tenderness. SKIN: no rashes and no bruising UPPER EXTREMITIES: upper extremities are grossly normal. Radial pulses equal bilaterally. LOWER EXTREMITIES: No pitting edema. NEURO EXAM: Normal sensorium, cranial nerves II-XII grossly intact, normal speech, no gross weakness of arms, no gross weakness of legs. Medical Decision & Procedures ER Provider Diagnostic Interpretation: Radiology results as stated below per my review and the radiologist's interpretation: CHEST ONE VIEW PORTABLE CLINICAL HISTORY: 56 years-old Female presenting with Chest Pain. TECHNIQUE: Portable upright AP view of the chest was obtained. COMPARISON: 06/19/2016. FINDINGS: Cardiomediastinal silhouette normal. Lungs and pleural spaces clear. Osseous structures normal. Upper abdomen normal. IMPRESSION: 1. No acute cardiopulmonary disease. Electronically signed by: Errol Jeffers M.D. 02/12/2017 7:33 PM Dictated Date/Time: 02/12/2017 7:33 PM Laboratory Results 02/12/17 18:50 Red Blood Count 4.73, Mean Corpuscular Volume 86.3, Mean Corpuscular Hemoglobin 29.4, Mean Corpuscular Hemoglobin Concent 34.1, Mean Platelet Volume 10.9, Neutrophils (%) (Auto) 53.3, Lymphocytes (%) (Auto) 36.6, Monocytes (%) (Auto) 7.0, Eosinophils (%) (Auto) 2.7, Basophils (%) (Auto) 0.3, Neutrophils # (Auto) 5.30, Lymphocytes # (Auto) 3.65, Monocytes # (Auto) 0.70, Eosinophils # (Auto) 0.27, Basophils # (Auto) 0.03 02/12/17 18:50 Test 02/12/17 18:50 White Blood Count 9.96 K/uL (4.8-10.8) Red Blood Count 4.73 M/uL (4.2-5.4) Hemoglobin 13.9 g/dL (12.0-16.0) Hematocrit 40.8 % (37-47) Mean Corpuscular Volume 86.3 fL (80-100) Mean Corpuscular Hemoglobin 29.4 pg (25-34) Mean Corpuscular Hemoglobin Concent 34.1 g/dl (32-36) Platelet Count 355 K/uL (130-400) Mean Platelet Volume 10.9 fL (7.4-10.4) Neutrophils (%) (Auto) 53.3 % Lymphocytes (%) (Auto) 36.6 % Monocytes (%) (Auto) 7.0 % Eosinophils (%) (Auto) 2.7 % Basophils (%) (Auto) 0.3 % Neutrophils # (Auto) 5.30 K/uL (1.4-6.5) Lymphocytes # (Auto) 3.65 K/uL (1.2-3.4) Monocytes # (Auto) 0.70 K/uL (0.11-0.59) Eosinophils # (Auto) 0.27 K/uL (0-0.5) Basophils # (Auto) 0.03 K/uL (0-0.2) RDW Standard Deviation 42.9 fL (36.4-46.3) RDW Coefficient of Variation 13.7 % (11.5-14.5) Immature Granulocyte % (Auto) 0.1 % Immature Granulocyte # (Auto) 0.01 K/uL (0.00-0.02) Anion Gap 7.0 mmol/L (3-11) Est Creatinine Clear Calc Drug Dose 58.9 ml/min Estimated GFR () 72.9 Estimated GFR (Non- 62.9 BUN/Creatinine Ratio 13.6 (10-20) Calcium Level 9.1 mg/dl (8.5-10.1) Total Creatine Kinase 37 U/L (26-192) Creatine Kinase MB < 0.5 ng/ml (0.5-3.6) Creatine Kinase MB Ratio (0-3.0) Laboratory results per my review. Medications Administered Medications (Trade) Dose Ordered Sig/Yovana Route Start Time Stop Time Status Last Admin Dose Admin Sodium Chloride 500 ml @ 999 mls/hr Q31M STAT IV 02/12/17 18:35 02/12/17 19:05 DC 02/12/17 18:59 999 MLS/HR Aspirin (Aspirin Chew) 162 mg NOW STAT PO 02/12/17 18:35 02/12/17 18:38 DC 02/12/17 19:01 162 MG Ketorolac Tromethamine (Toradol Inj) 30 mg NOW STAT IV 02/12/17 18:35 02/12/17 18:38 DC 02/12/17 19:00 30 MG ECG Indication: chest pain Rate (beats per minute): 78 Rhythm: normal sinus Findings: nonspecific-ST abn (Anterolateral), Q waves (Inferior), other ( normal axis; T-wave flipped inferior) Comparison ECG Date: 06/20/16 Change: no significant change ED Course ED COURSE: Vital signs were reviewed and showed hypertensive. The patients medical record was reviewed The above diagnostic studies were performed and reviewed. ED treatments and interventions as stated above. 1825: The patient was evaluated in room B4B. A complete history and physical examination was performed. 1834: Toradol 30 mg IV, Aspirin 162 mg PO, NSS 500 ml @ 999 mls/hr IV 2034: Upon reevaluation, the patient is resting comfortably. I discussed my findings with the patient and she understands and agrees with the treatment plan. Based on the patients age, coexisting illnesses, exam and lab findings the decision to treat as an inpatient was made. The patient remained stable while under my care. The patient will be evaluated for further management. 2039: Dr. Vasquez of the [facility] will evaluate the patient for further management. Medical Decision Differential diagnoses includes but is not limited to acute coronary syndrome, myocardial infarction, pericarditis, pulmonary embolus, aortic dissection, pneumonia, pneumothorax, musculoskeletal, shingles, esophageal. Patient is a 56-year-old female who presents to ER with exertional chest pain which has been present for the past 2 days associated with shortness of breath and left forearm pain. She notes that this pain in her left forearm comes and goes with her exertional chest pain. Chest pain is relieved with rest. She does admit to a mild cough today. No fevers. No congestion. Does have a history of hypertension and has a prescription for nitroglycerin. CBC all BMP was unremarkable. Troponins were negative. She does note that her left arm pain which she gets with exertion is completely different than her wrist pain from a fall. EKG was slightly improved from previous. Chest x-ray unremarkable. Was given a complete dose of aspirin. Patient was admitted to internal medicine. Medication Reconcilliation Current Medication List: was personally reviewed by me Blood Pressure Screening Patient's blood pressure: Elevated blood pressure Blood pressure disposition: Elevated BP felt to be situational Impression Primary Impression: Exertional chest pain Additional Impression: Cephalgia Scribe Attestation The scribe's documentation has been prepared under my direction and personally reviewed by me in its entirety. I confirm that the note above accurately reflects all work, treatment, procedures, and medical decision making performed by me. Departure Information Dispostion Being Evaluated By Hospitalist Referrals Judy Nelson MD (PCP) Patient Instructions My [facility] Problem Qualifiers Additional Impression: Cephalgia Headache type: unspecified Headache chronicity pattern: unspecified pattern Intractability: not intractable Qualified Codes: R51 - Headache
[2017-02-13 05:19] LABS: PROTHROMBIN TIME (PATIENT) 10.7 SECONDS (9.0-12.0)
[2017-02-13] MEDS: HEPARIN SOD 5000 UNIT/0.5 ML CARP SQ SCH ×2 (06:00→14:00)
[2017-02-13] MEDS: CLONIDINE HCL 0.1 MG TAB PO SCH ×3 (07:59→14:15)
[2017-02-13] MEDS: METOPROLOL TARTRATE 25 MG TAB PO SCH ×2 (08:00)
[2017-02-13] MEDS ORDERED: ISOSORBIDE MONONITRATE 30 MG TABCR PO SCH (09:00)
[2017-02-13] MEDS ORDERED: PANTOprazole SOD 40 MG TAB PO SCH (09:00)
[2017-02-13] MEDS ORDERED: ASPIRIN 81 MG ECTAB PO SCH (09:00)
[2017-02-13] MEDS ORDERED: AMLODIPINE BESYLATE 5 MG TAB PO SCH (09:00)
[2017-02-13] MEDS ORDERED: PERFLUTREN LIPID MICROSPHERE (DEFINITY) IV ONE (14:24)
--- NOTE | 2017-02-13 14:29 | Discharge Instructions ---
Discharge Instructions Date of Service Feb 13, 2017. Admission Reason for Admission: Chest Pain Discharge Discharge Diagnosis / Problem: non cardiac chest pain Discharge Goals Goal(s): Diagnostic testing, Therapeutic intervention Activity Recommendations Activity Limitations: resume your previous activity . Instructions / Follow-Up Instructions / Follow-Up Call your Primary Care doctor if any of the following symptoms or problems start or get worse: * Shortness of breath or difficulty breathing * Wake up at night short of breath * Chest pain * Cough * Swelling of your hands, feet, or legs * More fatigued or tired with your normal activity * Palpitations - sudden fast heart beats WEIGHT * Weigh yourself every morning after using the bathroom. * Use the same scale. * Wear the same amount of clothing. * Write your weight down on a chart. * Call your Primary Care doctor if you gain more than 2-3 pounds in 1-2 days. MEDICATIONS * Use this discharge instruction sheet for medication instructions. * Take your medications at the time your doctor ordered. * Do not skip a dose of your medicines. * If you miss a dose of medicine, take it as soon as possible, but DO NOT DOUBLE A DOSE. * Read your medicine information when you get home. * Know all of the side effects of your medicine. If in doubt, ask your pharmacist * Call your Primary Care doctor's office if you have any side effects. * Be sure all of your doctors know what medicine and herbs you take (including cold, flu, and herbal medicine). Take the following with you to your follow-up doctor appointments: * Weight Chart * Medication List * List of questions Do not drink excessive alcohol, beer or wine. Current Hospital Diet Patient's current hospital diet: AHA Diet (Heart Healthy) Discharge Diet Recommended Diet: Regular Diet Pending Studies Studies pending at discharge: no Laboratory Results Lipid Panel Test 02/06/17 12:18 Range/Units Triglycerides Level 304 H 0-150 mg/dl Cholesterol Level 195 0-200 mg/dl HDL Cholesterol 36 mg/dl Cholesterol/HDL Ratio 5.4 LDL Cholesterol, Calculated 98 mg/dl Medical Emergencies . Who to Call and When: Call 911 or go to the Emergency Room if: * If at any time you feel your situation is an emergency * You have tightness or pain in your chest that does not go away with rest or Nitroglycerin * You are very short of breath even with rest . Non-Emergent Contact Non-Emergency issues call your: Primary Care Provider Call Non-Emergent contact if: temperature is above 101, your pain is unusual for you . . "Provider Documentation" section prepared by Robert May. . VTE Core Measure Inpt VTE Proph given/why not?: Unfractionated heparin SQ
[2017-02-13] MEDS ORDERED: PANT40TA PO ×2 (14:30)
--- NOTE | 2017-02-13 14:41 | EXERCISE STRESS ECHO ---
*NOTICE TO RECEIVING [employer] This information is strictly Confidential and protected under [place] law. [place] law prohibits you from making any further disclosure of this information unless further disclosure is expressly permitted by the written consent of the person to whom it pertains or is authorized by law. A general authorization for the release of medical or other information is not sufficient for this purpose. Hospital accepts no responsibility if the information is made available to any other person, INCLUDING THE PATIENT. Interpretation Summary * Name: ALPHONSE SALDAÑA Study Date: 02/13/2017 12:31 PM BP: 142/62 mmHg * Patient Location: [facility]\S\N281\S\1 HR: 82 * : 1960 (M/d/yyyy) Gender: Female Height: 62 in * Age: 56 yrs Ethnicity: [place] Weight: 160 lb * Ordering Physician: Robert May * Referring Physician: Self, Referred * Performed By: Rubina Linares RDCS * * Reason For Study: Chest pain * BSA: 1.7 m2 * -- Conclusions -- * 1. Normal stress echocardiogram at 5.2 METS and a peak heart rate of 95% predicted maximal. * 2. No exercise-induced chest pain. * 3. False positive ECG response. * 4. Baseline echocardiogram shows normal left ventricular systolic function and mild left ventricular hypertrophy. Procedure Details * ECHOEX, CPT #[id number] * ECHO DOPPLER, CPT #[id number] * ECHO COLOR FLOW, CPT #[id number] * A contrast injection of Definity was performed to improve assessment of LV function. * Contrast was injected into an intravenous site in the right arm. * One vial of Definity ultrasound contrast was diluted in normal saline to a total volume of 10 ml. A total of '4' ml of solution was administered during imaging. * Lot # [id number] of Definity utilized for procedure. * Expiration date MAR 15. * The attending nurse who injected the contrast agent was Maura Jason RN. Left Ventricle * The left ventricle is normal in size. * There is mild concentric left ventricular hypertrophy. * Ejection Fraction = 65-70%. * Left ventricular systolic function is normal. * Resting wall motion: Normal. Stress wall motion: Appropriate increase in Left ventricular systolic function and decrease in cavity size. No stress induced segmental wall motion abnormalities. Right Ventricle * The right ventricle is grossly normal size. * The right ventricular systolic function is normal as assessed by tricuspid annular plane systolic excursion (TAPSE) (normal >1.5 cm). Atria * Borderline left atrial enlargement. * Right atrial size is normal. * There is no evidence of atrial septal defect, but resolution does not allow assessment for a patent foramen ovale. Mitral Valve * The mitral valve is grossly normal. * There is no mitral valve stenosis. * Significant mitral regurgitation is absent. Tricuspid Valve * The tricuspid valve is not well visualized, but is grossly normal. * There is no tricuspid stenosis. * Significant tricuspid regurgitation is absent. Aortic Valve * The aortic valve is normal in structure and function. * No hemodynamically significant valvular aortic stenosis. * No aortic regurgitation is present. Pulmonic Valve * The pulmonary valve is not well seen, but the Doppler examination is normal without significant regurgitation or stenosis. Great Vessels * The aortic root is normal size. * The pulmonary is not well visualized. Pericardium * There is no pericardial effusion. Stress Parameters * Normal baseline electrocardiogram. * There was a maximum 1.5mm ST segment depression in the inferior lead(s). * The stress portion of this study was personally supervised by the undersigned interpreting physician. * Rest heart rate was '82' BPM. * Rest blood pressure was '142/62' * Maximum heart rate achieved was 157 bpm. * Maximum heart rate was 95 % of maximum age-predicted heart rate. * Maximum blood pressure was '206/43' * Total exercise time was '3:30' * Maximum exercise MET level achieved was '5.20' METS * Maximum treadmill speed was '2.50' miles per hour. * Maximum treadmill elevation was '12.00'% grade. * Exercise was terminated due to 'achieving target heart rate' MMode 2D Measurements and Calculations IVSd 1.2 cm LVIDd 3.7 cm LVIDs 2.0 cm LVPWd 1.1 cm IVS/LVPW 1.1 FS 45.2 % EDV(Teich) 59.5 ml ESV(Teich) 13.5 ml EF(Teich) 77.2 % EDV(cubed) 52.2 ml ESV(cubed) 8.6 ml EF(cubed) 83.5 % LV mass(C)d 135.5 grams LV mass(C)dI 77.9 grams/m\S\2 SV(Teich) 46.0 ml SI(Teich) 26.5 ml/m\S\2 SV(cubed) 43.6 ml SI(cubed) 25.1 ml/m\S\2 Ao root diam 2.6 cm Ao root area 5.4 cm\S\2 ACS 1.9 cm LA dimension 2.6 cm asc Aorta Diam 2.7 cm LA/Ao 10 LVAd ap4 26.6 cm\S\2 LVLd ap4 7.0 cm EDV(MOD-sp4) 82.0 ml EDV(sp4-el) 85.8 ml LVAs ap4 11.0 cm\S\2 LVLs ap4 5.4 cm ESV(MOD-sp4) 18.3 ml ESV(sp4-el) 19.1 ml EF(MOD-sp4) 77.7 % EF(sp4-el) 77.7 % LVAd ap2 30.9 cm\S\2 LVLd ap2 8.0 cm EDV(MOD-sp2) 101.5 ml EDV(sp2-el) 101.5 ml LVAs ap2 10.5 cm\S\2 LVLs ap2 5.1 cm ESV(MOD-sp2) 17.9 ml ESV(sp2-el) 18.1 ml EF(MOD-sp2) 82.4 % EF(sp2-el) 82.2 % LVLd %diff 12.0 % EDV(MOD-bp) 95.3 ml LVLs %diff -4.96 % ESV(MOD-bp) 18.5 ml EF(MOD-bp) 80.6 % SV(MOD-sp4) 63.8 ml SI(MOD-sp4) 36.7 ml/m\S\2 SV(MOD-sp2) 83.6 ml SI(MOD-sp2) 48.1 ml/m\S\2 SV(MOD-bp) 76.9 ml SI(MOD-bp) 44.2 ml/m\S\2 SV(sp4-el) 66.6 ml SI(sp4-el) 38.3 ml/m\S\2 SV(sp2-el) 83.4 ml SI(sp2-el) 48.0 ml/m\S\2 Doppler Measurements and Calculations MV E max rhianna 113.8 cm/sec MV A max rhianna 120.2 cm/sec MV E/A 0.95 MV dec time 0.25 sec Ao V2 max 144.9 cm/sec Ao max PG 8.4 mmHg Ao max PG (full) 1.1 mmHg LV V1 max PG 7.3 mmHg LV V1 max 135.3 cm/sec PA V2 max 98.4 cm/sec PA max PG 3.9 mmHg PA acc slope 779.5 cm/sec\S\2 PA acc time 0.12 sec TR max rhianna 82.8 cm/sec PA pr(Accel) 24.8 mmHg
--- NOTE | 2017-02-13 17:47 | Discharge Summary ---
Discharge Summary Date of Service Feb 13, 2017. Discharge Summary Admission Date: Feb 12, 2017 at 21:17 Discharge Date: Feb 13, 2017 Discharge Disposition: Home Principal Diagnosis: noncardiac chest pain Problems/Secondary Diagnoses: (1) Hypertension Status: Chronic Procedures: Stress echocardiogram which was negative for ischemia per Dr. Casey Medication Reconciliation Changed Medications: Pantoprazole (Protonix) 40 Mg Tab 40 MG PO BID, #60 TAB 2 Refills (Changed from: QAM; 30; Refills: ) Continued Medications: Alprazolam (Xanax) 0.25 Mg Tab 0.25 MG PO BID PRN for Anxiety, TAB Amlodipine (Norvasc) 5 Mg Tab 5 MG PO QAM, TAB Aspirin (Aspirin Ec) 81 Mg Tab 81 MG PO QAM Clonidine Hcl (Catapres) 0.1 Mg Tab 0.1 MG PO TID, TAB Fluticasone Propionate (Nasal) (Flonase Allergy Relief) 50 Mcg/Act Spr 1 SPRAY TEJAS DAILY Isosorbide Mononitrate (Isosorbide Mononitrate ER) 30 Mg Tabcr 30 MG PO QAM Metoprolol Tartrate (Lopressor) (Lopressor) 25 Mg Tab 25 MG PO BID, TAB Sodium Chloride (Inhalant) (Nasal Mist) 0.9 % Aer 1 SPRAY TEJAS PRN for Nasal Congestion Discharge Exam Review of Systems: Constitutional: No fever, No chills Respiratory: No cough, No sputum, No wheezing, No shortness of breath Cardiovascular: + chest pain, No orthopnea Abdomen: No pain, No nausea, No vomiting, No diarrhea Physical Exam: General Appearance: WD/WN, no apparent distress Eyes: PERRL, EOMI ENT: hearing grossly normal, pharynx normal Respiratory/Chest: chest non-tender, lungs clear, no respiratory distress, + pertinent finding (some coarse breath sounds) Cardiovascular: regular rate, rhythm, no murmur Abdomen / GI: normal bowel sounds, non tender, soft Extremities: no pedal edema, normal range of motion Neurologic/Psychiatric: alert, oriented x 3 Hospital Course 56 y/o F Hx HTN, GERD - presents with 2 episodes of central CP over past 2 days lasting approximately 15 min. did have negative stress in 2014 CP - symptoms to ER attending, did include some associated symptoms, was given ASA and NTG/morphine PRN. Stress testing proved to show no ischemia we'll recommend continuing her metoprolol- Imdur will increase Protonix for the possibility of this being GI with consideration for outpatient workup for GERD, in addition the patient had some raspiness to her voice and some coarse breath sounds which could also be pulmonary irritation of reflux HTN metoprolol, clonidine, norvasc and imdur GERD - cont PPi increase to twice a day Total Time Spent: Greater than 30 minutes This includes examination of the patient, discharge planning, medication reconciliation, and communication with other providers. Discharge Instructions Please refer to the electronic Patient Visit Report (Discharge Instructions) for additional information. Additional Copies To Judy Nelson MD
== END 2017-02-13 17:36 | disposition home or self-care (01) ==
LOC: C.EDB 18:21 → C.MED 21:17 → ENRESERV 21:35
PROVIDERS: ADMIT Internal Medicine; ATTEND Internal Medicine
DX: R07.89 Other chest pain (principal); I10 Essential (primary) hypertension; K21.9 Gastro-esophageal reflux disease without esophagitis; F41.9 Anxiety disorder, unspecified; Z79.82 Long term (current) use of aspirin; Z79.899 Other long term (current) drug therapy

== ENCOUNTER → 2017-04-28 | Outpatient (CLI) | payer OTHER ==
[~2017-04-28] MED LIST changes: +ALPR0.25 PO; -CYCL10TA6 PO; +FLUT0.15 NAE; +[UNRECOGNIZED DRUG - CODE] NAE
--- NOTE | 2017-04-28 09:32 | DIAGNOSTIC IMAGING REPORT ---
KUB CLINICAL HISTORY: 57 years-old Female presenting with N20.0 [id number]. TECHNIQUE: Single supine view of the abdomen was obtained. COMPARISON: 04/08/[address] from 03/09/2016. FINDINGS: Mild stool burden throughout the colon. Nonobstructive bowel gas pattern. No gross pneumoperitoneum. Allowing for bowel gas and stool, no calcifications project over the renal shadows or along the courses of the ureters. Calcifications in the region of the adnexa unchanged. Tiny phlebolith in the left hemipelvis unchanged. No calcifications project over the bladder. Osseous structures normal. IMPRESSION: 1. No radiographically evident nephrolithiasis or ureteral calculi. Electronically signed by: Errol Jeffers M.D. 04/28/2017 9:30 AM Dictated Date/Time: 04/28/2017 9:28 AM
== END | disposition home or self-care (01) ==
LOC: C.RAD 09:08
PROVIDERS: ATTEND Urology
DX: N20.0 Calculus of kidney (principal)

== ENCOUNTER → 2017-06-09 | Outpatient (CLI) | payer OTHER | END | disposition home or self-care (01) | LOC: C.PAPS 13:47 | PROVIDERS: ATTEND Obstetrics & Gynecology | DX: Z12.4 Encounter for screening for malignant neoplasm of cervix (principal); Z78.0 Asymptomatic menopausal state ==

== ENCOUNTER → 2017-06-13 | Outpatient (CLI) | payer OTHER | END | disposition home or self-care (01) | LOC: C.LAB 07:47 | PROVIDERS: ATTEND Family Medicine | DX: Z11.59 Encounter for screening for other viral diseases (principal); E78.1 Pure hyperglyceridemia ==

== ENCOUNTER → 2017-06-14 | Outpatient (CLI) | payer OTHER ==
--- NOTE | 2017-06-14 15:08 | MAMMOGRAPHY REPORT ---
BILATERAL DIGITAL SCREENING MAMMOGRAM TOMOSYNTHESIS WITH CAD: 06/14/2017 CLINICAL HISTORY: Routine screening. Patient has no complaints. TECHNIQUE: Breast tomosynthesis in addition to standard 2D mammography was performed. Current study was also evaluated with a Computer Aided Detection (CAD) system. COMPARISON: No prior exams were available for comparison. BREAST COMPOSITION: There are scattered areas of fibroglandular density in both breasts. FINDINGS: There is a focal asymmetry in the upper outer posterior right breast which could represent a combination of a lymph node in normal fibroglandular tissue although comparison to prior outside m ammograms would be useful to assess stability. If they are not obtained in a timely manner, addition al spot compression tomosynthesis views and possible ultrasound are recommended. There is focal asym metry with possible associated microcalcifications in the 12:00 middle one third of the left breast, for which additional spot magnification and spot compression tomosynthesis views with possible ultras ound are recommended, if outside mammograms are not available. There are minimal vascular calcifications in the breasts, and a benign intramammary lymph node in the 3:00 to 4:00 middle one third of the left breast. No other suspicious mass, architectural distortion or cluster of microcalcifications is seen. IMPRESSION: ACR BI-RADS CATEGORY 0: INCOMPLETE EVALUATION: NEED ADDITIONAL IMAGING EVALUATION The focal asymmetry in the right upper outer posterior breast, and focal asymmetry with possible asso ciated calcifications in the 12:00 middle one third of the left breast need comparison to prior outsi de mammograms to assess stability. If they are not obtained in a timely manner, additional imaging e valuation is recommended. The patient will be called to schedule an appointment. Approximately 10% of breast cancers are not detected with mammography. A negative mammographic report should not delay biopsy if a clinically suggestive mass is present. Kiesha De Paz M.D. ay/:06/14/2017 12:41:00 Fast Food Worker: Micaela KWON)(Shel[place]), [facility] letter sent: Addl Imaging 0 BI-RADS Code: ACR BI-RADS Category 0: Incomplete Evaluation: Need Additional Imaging Evaluation
== END | disposition home or self-care (01) ==
LOC: C.MAMM 12:15
PROVIDERS: ATTEND Family Medicine
DX: Z12.31 Encounter for screening mammogram for malignant neoplasm of breast (principal); N64.89 Other specified disorders of breast

== ENCOUNTER → 2017-06-21 | Outpatient (CLI) | payer OTHER ==
--- NOTE | 2017-06-21 15:42 | MAMMOGRAPHY REPORT ---
BILATERAL DIGITAL DIAGNOSTIC MAMMOGRAM TOMOSYNTHESIS AND TARGETED BILATERAL ULTRASOUND: 06/21/2017 CLINICAL HISTORY: 57-year-old woman called back from baseline screening mammography for bilateral asy mmetries. TECHNIQUE: Spot compression tomosynthesis CC and MLO views of each breast were obtained. COMPARISON: Comparison is made to exam dated: 06/14/2017 mammogram - [facility]. BREAST COMPOSITION: There are scattered areas of fibroglandular density in both breasts. FINDINGS: There is a persistent lobulated, partially circumscribed mass in the upper outer middle on e third of the right breast, measuring 7.9 x 5.3 x 5.0 mm. No associated architectural distortion or calcification. Further characterization with ultrasound was performed. The left breast asymmetry in the 12:00 axes partially effaces on the additional spot compression callie synthesis views, no persistent architectural distortion or obvious mass. Further evaluation with ult rasound was performed. Targeted ultrasound was performed in the left breast 12:00, retroareolar and 6:00 axes, and in the ri t upper outer quadrant. A cyst with thin internal nonvascular septation is incidentally seen in th e 11:00 periareolar left breast, measuring 8.2 x 2.2 x 5.7 mm. No other suspicious solid or cystic m ass is seen in the 12:00, retroareolar or 6:00 left breast on targeted ultrasound, suggesting the asy mmetry represented normal fibrofatty glandular tissue. In the right upper outer quadrant, an isoecho ic solid mass is seen in the 10:00 axis, 6 cm from the nipple, measuring 4.7 x 5.0 x 6.0 mm. Initial ly the ultrasound images were mislabeled as left breast 6:00, 6 cm from the nipple but this mass is a ctually in the right 10:00 breast and corresponds with the mammographic mass in the right upper outer quadrant seen on spot compression images. This solid mass is indeterminate and definitive character ization with tissue sampling is recommended. IMPRESSION: ACR BI-RADS CATEGORY 4: SUSPICIOUS, TARGETED ULTRASOUND ACR BI-RADS CATEGORY 4: SUSPICIO US 1. Ultrasound-guided core biopsy is recommended for an isoechoic solid 6 mm mass in the 10:00 right breast, 6 cm from the nipple, which corresponds to a persistent mammographic mass in the right upper outer quadrant. 2. Effacement of the left breast asymmetry, and no suspicious sonographic correlate identified. How ever, given that this was the patient's baseline, a short interval follow-up left diagnostic tomosynt hesis mammogram and possible ultrasound is recommended to ensure stability in 6 months, pending cecile starkey pathology results from the right breast biopsy. These results and recommendations were discussed with the patient at the time of the exam. She tenta tively scheduled the right breast biopsy prior to leaving our department. Approximately 10% of breast cancers are not detected with mammography. A negative mammographic report should not delay biopsy if a clinically suggestive mass is present. Kiesha De Paz M.D. ay/:06/21/2017 14:59:00 Sales Vendor: Felicia MO(R)(M), [facility] letter sent: Abnormal 4/5 BI-RADS Code: ACR BI-RADS Category 4: Suspicious Ultrasound BI-RADS: ACR BI-RADS Category 4: Suspici ous
== END | disposition home or self-care (01) ==
LOC: C.MAMM 13:53
PROVIDERS: ATTEND Family Medicine
DX: N64.9 Disorder of breast, unspecified (principal); N63.10 Unspecified lump in the right breast, unspecified quadrant

== ENCOUNTER → 2017-06-29 | Outpatient (CLI) | payer OTHER ==
--- NOTE | 2017-06-29 10:49 | Discharge Instructions ---
Discharge Instructions Procedure Procedure Date: Jun 29, 2017. Reason for visit: Right Mass. Discharge Discharge Date: Jun 29, 2017. Discharge Diagnosis: status post breast biopsy Instructions Activity Recommendations: Additional Limitations (see below) Return to School/Work: no limitations Recommended Home Diet: No Limitations Provider Instructions: ACTIVITY RECOMMENDATIONS: * No lifting, pushing, pulling or exercising the affected side for three days. RETURN TO SCHOOL/WORK: * You may return to work/school after the procedure, but do not perform any strenuous activities for 24 to 48 hours. MEDICATIONS: * Tylenol (two 325 mg) every four to six hours if needed for mild pain (if not allergic to Tylenol). DIET: * Resume previous diet. SPECIAL CARE INSTRUCTIONS: * Keep biopsy site dry for 24 hours. May shower after 24 hours, but do not soak (bathe) incision. * May remove Tegaderm (plastic patch) tomorrow AFTER showering. * Leave the steri-strips on for one week. Allow the steri-strips to fall off by themselves. If not off after one week, you may remove them. You may place a Bandaid crosswise over the strips, if desired. * Apply ice 10 minutes on and 10 minutes off as needed. * Wear a bra at bedtime to sleep more comfortably for 2-3 days. * Your referring physician should have the results after approximately 5 to 7 business days. * Call for unusual bleeding, fever, drainage, etc or if you have any questions call during normal business hours or after hours call Dr Shahid, [phone]. FOLLOW UP VISIT: Follow-up with Referring Physician as scheduled. Allergies Coded Allergies: Antihistamines, Chlorpheniramine-ty (Verified Allergy, Unknown, INCREASED BP, 10/04/16) Antihistamines, Diphenhydramine-typ (Verified Allergy, Unknown, INCREASED BP, 10/04/16) Antihistamines, Loratadine-type (Verified Allergy, Unknown, INCREASED BP, 10/04/16) Lisinopril (Verified Allergy, Unknown, INCREASED BLOODPRESSURE, 10/04/16) Fentanyl (Verified Adverse Reaction, Intermediate, Decreased oxygen saturation, 10/04/16) Patient arrived to PACU sedated with O2 sats in 80's despite Nasal Airway and O2 via mask at 15LPM. Narcan administered per MD orders (0.2mg x2). Patient's mental status improved, O2 sats improved. Corinne Cheng Recommendations: Call your doctor if: * Temperature above 101 degrees * Pain not relieved by pain medicine ordered * There is increased drainage or redness from any incision * You have any unanswered questions or concerns. Your Doctors Instructions noted above were prepared by provider Bonita Shahid. Patient Signature Section: Patient Instructions Signature Page Jordyn Orellana Patient (or Guardian) Signature/Date: I have read and understand the instructions given to me by my caregivers. Caregiver/RN/Doctor Signature/Date: The above-named patient and/or guardian has received patient instructions on this date. + Original Patient Signature Page (only) stays with chart. Please make copy for patient.
== END | disposition home or self-care (01) ==
LOC: C.MAMM 10:10
PROVIDERS: ATTEND Family Medicine
DX: N63.10 Unspecified lump in the right breast, unspecified quadrant (principal); D24.1 Benign neoplasm of right breast

== ENCOUNTER 2017-08-11 15:11 | Emergency (ER) | payer OTHER ==
[~2017-08-11] VITALS: Ht 157.5 cm; Wt 73.0 kg
[2017-08-11 15:15] VITALS: TEMP 36.4; Ht 157.5 cm; Wt 73.0 kg
[2017-08-11] MEDS ORDERED: ACETAMINOPHEN 500 MG TAB PO STA (15:32)
[2017-08-11] MEDS ORDERED: PANT40TA PO (15:39)
--- NOTE | 2017-08-11 16:13 | EMERGENCY ROOM VISIT NOTE ---
History First contact with patient: 15:19 Chief Complaint: HEADACHE Stated Complaint: HEADACHE, BRUISE ON FOREHEAD, BATOOL HUFFMAN History of Present Illness The patient is a 57 year old female who presents to the Emergency Room with complaints of a head injury that occurred 2 days ago. The patient rolled out of bed striking her head on the bedside table. There is no loss of consciousness. She has had a mild headache. No nausea or dizziness. She denies any changes in vision. She has had significant sinus pressure over the last several weeks. She denies any sore throat or fever. She has tried Tylenol Cold and sinus with minimal relief. The patient takes a baby aspirin daily. Review of Systems 10 system review performed and negative unless noted in HPI or below Past Medical/Surgical History Medical Problems: (1) Anxiety Disorder, Unspecified (2) Chest pain (3) Heart disease (4) Hypertension (5) Kidney stones (6) Peritoneal Adhesions (Postprocedural) (Postinfection) (7) Renal calculus, left Surgical Problems: (1) History of dental extraction (2) History of partial hysterectomy (3) History of tubal ligation Family History FH: hypertension Kidney stones Social History Smoking Status: Never Smoker Alcohol Use: none Drug Use: none Marital Status: Housing Status: lives with family Occupation Status: unemployed Current/Historical Medications Scheduled Amlodipine (Norvasc), 5 MG PO QAM Aspirin (Aspirin Ec), 81 MG PO QAM Clonidine Hcl (Catapres), 0.1 MG PO TID Fluticasone Propionate (Nasal) (Flonase Allergy Relief), 1 SPRAY TEJAS DAILY Isosorbide Mononitrate (Isosorbide Mononitrate ER), 30 MG PO QAM Metoprolol Tartrate (Lopressor) (Lopressor), 25 MG PO BID Pantoprazole (Protonix), 40 MG PO QAM Sodium Chloride (Inhalant) (Nasal Mist), 1 SPRAY TEJAS PRN Scheduled PRN Alprazolam (Xanax), 0.25 MG PO BID PRN for Anxiety Physical Exam Vital Signs Date Time Temp Pulse Resp B/P (MAP) Pulse Ox O2 Delivery O2 Flow Rate FiO2 08/11/17 16:36 57 18 101/63 92 08/11/17 15:15 36.4 64 18 124/76 94 Room Air Physical Exam VITALS: Vitals are noted on the nurse's note and reviewed by myself. Vital signs stable. GENERAL: 57-year-old female, in no acute distress, nondiaphoretic, well- developed well-nourished. SKIN: The skin was without rashes, erythema, edema, or bruising. There is no tenting of the skin. Capillary reflex less than 2 seconds. HEAD: Small area of ecchymosis noted to the right forehead. No valverde signs or raccoon eyes. EARS: External auditory canals clear, right tympanic membrane is bulging with a small serous effusion. No significant erythema. Left tympanic membrane is pearly ball without effusion. NOSE: Tenderness over the maxillary sinuses bilaterally. EYES: Pupils equal round and reactive to light and accommodation. Conjunctivae without injection, sclerae without icterus. Extraocular movements intact. MOUTH: Mucous membranes moist. Tonsils are not enlarged. Pharynx without erythema or exudate. Uvula midline. Airway patent. Tongue does not deviate. NECK: Supple without nuchal rigidity. No lymphadenopathy. Cervical spine is nontender. No JVD. HEART: Regular rate and rhythm without murmurs gallops or rubs. LUNGS: Clear to auscultation bilaterally without wheezes, rales or rhonchi. No accessory muscle use. MUSCULOSKELETAL: No muscle atrophy, erythema, or edema noted. . Normal gait. Strength 5/5 throughout. NEURO: Patient was alert and oriented to person place and time. Cerebellar function intact. Negative Romberg. Cranial nerves grossly intact. Normal heel to toe walking. Normal sensation to touch. No focal neurological deficits. Medical Decision & Procedures ER Provider Diagnostic Interpretation: CT head w/o contrast Impression: No acute intracranial abnormality. Sinuses are clear The above report was generated using voice recognition software. It may contain grammatical, syntax or spelling errors. Electronically signed by: Leon Solano M.D. 08/11/2017 4:19 PM Dictated Date/Time: 08/11/2017 4:18 PM The status of this report is Signed. Draft = Not yet reviewed or approved by Radiologist. Signed = Reviewed and approved by Radiologist. <AttendingPhy></AttendingPhy> <FamilyPhy>Judy Nelson MD</FamilyPhy> < PrimaryPhy>Judy Nelson MD</PrimaryPhy> <UnitNumber>[id number]</UnitNumber > <VisitNumber>[id number]</VisitNumber> <PatientName>ALICE SALDAÑA Medications Administered Medications (Trade) Dose Ordered Sig/Yovana Route Start Time Stop Time Status Last Admin Dose Admin Acetaminophen (Tylenol Tab) 1,000 mg NOW STAT PO 08/11/17 15:32 08/11/17 15:34 DC 08/11/17 15:54 1,000 MG ED Course The patient was seen and examined She was medicated with Tylenol Imaging was performed and reviewed Upon reevaluation, the patient was resting comfortably. We discussed her results. She voiced understanding. She was comfortable being discharged home. Discharge instructions were reviewed, and she was discharged in good condition Medical Decision Differential diagnosis: Closed head injury, concussion, skull fracture, intracranial bleed, acute versus chronic sinusitis This patient is a 57-year-old female presents to the emergency department with a mild headache after a head injury. She also had significant sinus pressure and tenderness over the maxillary sinuses bilaterally. A CT of the head was performed. No acute findings including sinusitis were noted. I believe she likely has a minor head injury. She will take Tylenol and Mucinex for her symptoms. She was also advised to have close follow-up with her primary care physician, and will return to the ER with any new or concerning symptoms. This chart was completed in part utilizing [employer] Speech Voice Recognition software. Attempts were made to minimize the grammatical errors, random word insertions, pronoun errors and incomplete sentences. Any formal questions or concerns about the content, text or information contained within the body of this dictation should be directly addressed to the provider for clarification. Medication Reconcilliation Current Medication List: was personally reviewed by ms Blood Pressure Screening Patient's blood pressure: Normal blood pressure Impression Primary Impression: Head injury Departure Information Dispostion Home / Self-Care Condition GOOD Referrals Judy Nelson MD (PCP) Patient Instructions [facility] Additional Instructions You have been treated in the Emergency Department for a Closed Head Injury. CT Scan of your head/brain demonstrated no acute bleeding or other abnormalities. This does not completely rule out the risk for future damage to the brain. For pain control, you can use the following [id number] medicines (if >12 yo): - Regular strength (325mg/tab) Tylenol (acetaminophen) 2 tabs every 4-6 hours as needed. Do not exceed 12 tablets in a 24 hour period. Avoid taking more than 4 grams (4000 mg) of Tylenol per day. This includes any other sources of acetaminophen you may take on a regular basis. - Regular strength (200 mg/tab) Advil (ibuprofen) 1-2 tabs every 4-6 hours as needed. Do not exceed a dose of 3200 mg per day. You should relax in a quiet, dark place for the rest of the day. Avoid any possible triggers including: cigarette smoke, caffeine, nicotine, chocolate, wine, beer, loud noises or music, or bright lights. You should schedule a follow-up appointment in 2-3 days with your Primary Care Provider or established Neurologist for further evaluation and treatment of your Headache. Regarding your sinus symptoms, please take Mucinex [id number] as directed. Return to the Emergency Department if your current symptoms worsen despite treatment course outlined above, or if you develop any of the following symptoms : intractable pain despite aforementioned treatment course, visual disturbances , loss of vision, unilateral weakness or facial drooping, slurring of speech, loss of coordination, or loss of consciousness.
--- NOTE | 2017-08-11 16:21 | DIAGNOSTIC IMAGING REPORT ---
HEAD WITHOUT CONTRAST (CT) CT DOSE: 537.48 mGy.cm HISTORY: Headaches BARRIGA sinus pressure please also eval sinuses TECHNIQUE: Multiaxial CT images of the head were performed without the use of intravenous contrast. A dose lowering technique was utilized adhering to the principles of ALARA. Comparison: None. Findings: The paranasal sinuses and mastoid air cells are clear. The calvarium and skull base are intact. The ventricles and sulci are within normal limits. There is no mass, hematoma, midline shift, or acute infarct. Impression: No acute intracranial abnormality. Sinuses are clear The above report was generated using voice recognition software. It may contain grammatical, syntax or spelling errors. Electronically signed by: Leon Solano M.D. 08/11/2017 4:19 PM Dictated Date/Time: 08/11/2017 4:18 PM
[2017-08-11 16:36] VITALS: BP 101/63; PULSE 57; O2SAT 92
== END 2017-08-11 16:36 | disposition home or self-care (01) ==
LOC: C.EDB 15:13 → C.EDD 16:36
DX: S09.90XA Unspecified injury of head, initial encounter (principal); X58.XXXA Exposure to other specified factors, initial encounter; F41.9 Anxiety disorder, unspecified; I10 Essential (primary) hypertension; Z87.442 Personal history of urinary calculi; Z90.710 Acquired absence of both cervix and uterus; Z98.51 Tubal ligation status; Z82.49 Family history of ischemic heart disease and other diseases of the circulatory system; Z79.82 Long term (current) use of aspirin; Z79.899 Other long term (current) drug therapy

== ENCOUNTER 2017-10-04 14:36 | Emergency (ER) | payer OTHER ==
[~2017-10-04] VITALS: Ht 157.5 cm; Wt 70.4 kg
[2017-10-04 14:38] VITALS: BP 136/76; PULSE 69; TEMP 36.8; O2SAT 97; Ht 157.5 cm; Wt 70.4 kg
[2017-10-04] MEDS ORDERED: VNTHFA/IN INH (14:49)
[2017-10-04] MEDS ORDERED: LIDOCAINE 1% BUFFERED INJ 5 ML VIAL ONE (14:59)
[2017-10-04] MEDS ORDERED: CEPHALEXIN MONOHYDRATE 250 MG CAP PO ONE (15:00)
[2017-10-04] MEDS ORDERED: CEPH500C PO (15:20)
--- NOTE | 2017-10-04 15:44 | EMERGENCY ROOM VISIT NOTE ---
History Report prepared by Lorena: David Nair Under the Supervision of: Dr. Anatoly Natarajan D.O. First contact with patient: 14:55 Chief Complaint: TOE PAIN, INJURY Stated Complaint: SORE ON LT TOE History of Present Illness The patient is a 57 year old female who presents to the Emergency Room with complaints of constant left third toe pain beginning today. She describes her pain as "burning". She states that she had a flap of skin hanging over the area , but cut it off yesterday. The patient rates her pain as an 8/10 in severity. Her pain is worsened with walking. She has not noticed any signs of infection to her toe. No other exacerbating or remitting factors. Patient has never had this before. Pt denies headache, change in vision, fevers, chest pain, shortness of breath, nausea, vomiting, diarrhea, pain with urination. Source of History: patient Onset: Today Position: toe(s) (left third) Symptom Intensity: 8/10 Quality: burning Timing: constant Modifying Factors (Worsening): other (Walking) Associated Symptoms: No fevers, No headache, No chest pain, No SOB, No nausea, No vomiting, No melena, No diarrhea, No urinary symptoms Review of Systems See HPI for pertinent positives & negatives. A total of 10 systems reviewed and were otherwise negative. Past Medical & Surgical Medical Problems: (1) Anxiety Disorder, Unspecified (2) Chest pain (3) Heart disease (4) Hypertension (5) Kidney stones (6) Peritoneal Adhesions (Postprocedural) (Postinfection) (7) Renal calculus, left Surgical Problems: (1) History of dental extraction (2) History of partial hysterectomy (3) History of tubal ligation Family History FH: hypertension Kidney stones Social History Smoking Status: Never Smoker Alcohol Use: none Drug Use: none Marital Status: Housing Status: lives with family Occupation Status: unemployed Current/Historical Medications Scheduled Amlodipine (Norvasc), 5 MG PO QAM Aspirin (Aspirin Ec), 81 MG PO QAM Cephalexin Monohydrate (Keflex), 500 MG PO TID Clonidine Hcl (Catapres), 0.1 MG PO TID Fluticasone Propionate (Nasal) (Flonase Allergy Relief), 1 SPRAY TEJAS DAILY Isosorbide Mononitrate (Isosorbide Mononitrate ER), 30 MG PO QAM Metoprolol Tartrate (Lopressor) (Lopressor), 25 MG PO BID Pantoprazole (Protonix), 40 MG PO QAM Sodium Chloride (Inhalant) (Nasal Mist), 1 SPRAY TEJAS PRN Scheduled PRN Albuterol Hfa (Ventolin Hfa), 2-4 PUFFS INH Q6H PRN for SOB/Wheezing Alprazolam (Xanax), 0.25 MG PO BID PRN for Anxiety Allergies Coded Allergies: Antihistamines, Chlorpheniramine-ty (Verified Allergy, Intermediate, INCREASED BP, 10/04/17) Antihistamines, Diphenhydramine-typ (Verified Allergy, Intermediate, INCREASED BP, 10/04/17) Antihistamines, Loratadine-type (Verified Allergy, Intermediate, INCREASED BP, 10/04/17) Lisinopril (Verified Allergy, Intermediate, INCREASED BLOODPRESSURE, ) Fentanyl (Verified Adverse Reaction, Intermediate, Decreased oxygen saturation, 10/04/17) Patient arrived to PACU sedated with O2 sats in 80's despite Nasal Airway and O2 via mask at 15LPM. Narcan administered per MD orders (0.2mg x2). Patient's mental status improved, O2 sats improved. Physical Exam Vital Signs Date Time Temp Pulse Resp B/P (MAP) Pulse Ox O2 Delivery O2 Flow Rate FiO2 10/04/17 14:38 36.8 69 18 136/76 97 Room Air Physical Exam GENERAL: Sitting up in bed, alert, well appearing, well nourished, no distress, non-toxic EYE EXAM: normal conjunctiva. OROPHARYNX: no exudate, no erythema, lips, buccal mucosa, and tongue normal and mucous membranes are moist NECK: supple, no nuchal rigidity, no adenopathy, non-tender LUNGS: Clear to auscultation. Normal chest wall mechanics HEART: no murmurs, S1 normal and S2 normal ABDOMEN: abdomen soft, non-tender, normo-active bowel sounds, no masses, no rebound or guarding. SKIN: no rashes and no bruising UPPER EXTREMITIES: upper extremities are grossly normal. LOWER EXTREMITIES: No pitting edema. Left third toe with erythema on the dorsal aspect tracking just proximally beyond the nailbed and significant tenderness on the lateral aspect of the nail bed where there is a small pustule with fluctuance in the toenail angled in under the skin NEURO EXAM: Normal sensorium. Medical Decision & Procedures Medications Administered Medications (Trade) Dose Ordered Sig/Yovana Route Start Time Stop Time Status Last Admin Dose Admin Cephalexin Monohydrate (Keflex Cap) 500 mg NOW ONCE PO 10/04/17 15:00 10/04/17 15:01 DC 10/04/17 15:18 500 MG Procedure Ingrown Toenail Excision Left third toe was anesthetized with 2 mL of Lidocaine. Cleaned with Betadine. Toenail was incised in the left lateral aspect. Fluctuance was opened up and green purulence was expressed. Patient tolerated the procedure well. ED Course ED COURSE: Vital signs were reviewed and appeared normal. The patients medical record was reviewed The above diagnostic studies were performed and reviewed. ED treatments and interventions as stated above. 1456: The patient was evaluated in room D3B. A complete history and physical examination was performed. 1500: Ordered Keflex Cap 500 mg PO, Buffered Lidocaine 1% Inj 5 mL INFIL. 1515: I excised patients left third toenail. See the procedure note for details. 1525: Upon reevaluation, the patient is resting comfortably.I discussed my findings with the patient and him understands and agrees with the treatment plan. Based on the patients age, coexisting illnesses, exam and lab findings the decision to treat as an outpatient was made. The patient remained stable while under my care. The patient appeared well at the time of discharge. Medical Decision Differential diagnosis includes etiologies such as cellulitis, abscess, MRSA infection, DVT, necrotizing fasciitis, dermatitis, drug eruption, as well as others were entertained. Patient is a 57-year-old female who presents the ER with erythema of the left toe following cutting the toenail. She did cut the toenail back on the angle of the left third toe and there was a clear ingrown toenail with fluctuance on the left lateral aspect. Toenail was excised after lidocaine was injected in the paronychia was opened up with green purulent discharge draining. Patient tolerated procedure well. She was given dose Keflex and discharged with Keflex to follow-up with PCP as an outpatient. Discussed with Pt concerning signs and symptoms to watch out for. Pt was instructed to follow up with their PCP and discussed with the patient their option to return to the ED at anytime for persistent or worsening symptoms. The appropriate anticipatory guidance and out- patient management, including indications for return to the emergency department , were explained at length to the patient and understood. Medication Reconcilliation Current Medication List: was personally reviewed by me Blood Pressure Screening Patient's blood pressure: Elevated blood pressure Blood pressure disposition: Elevated BP felt to be situational Impression Primary Impression: Ingrown toenail Additional Impression: Abscess Scribe Attestation The scribe's documentation has been prepared under my direction and personally reviewed by me in its entirety. I confirm that the note above accurately reflects all work, treatment, procedures, and medical decision making performed by me. Departure Information Dispostion Home / Self-Care Prescriptions Cephalexin Monohydrate (Keflex) 500 Mg Cap 500 MG PO TID for 7 Days, CAP Prov: Anatoly Natarajan, DO 10/04/17 Referrals Judy Nelson MD (PCP) Forms HOME CARE DOCUMENTATION FORM, IMPORTANT VISIT INFORMATION, WORK / SCHOOL INSTRUCTIONS Patient Instructions ED Ingrown Toenail Excised, My [facility] Additional Instructions Please follow up with your primary care doctor with in the next 24 hours. Any worsening of your symptoms, please return to the ED immediately. This includes any fevers greater than 100.4, worsening pain, worsening redness, redness streaking up her toe, or any other concerning signs or symptoms from your standpoint. Please take Tylenol or Motrin as needed for pain. Please soak yourr foot every 6 hours in warm water and take antibiotics. Problem Qualifiers
== END 2017-10-04 15:23 | disposition home or self-care (01) ==
LOC: C.EDB 14:38 → C.EDD 15:23
DX: L60.0 Ingrowing nail (principal); L02.612 Cutaneous abscess of left foot; I11.9 Hypertensive heart disease without heart failure; Z79.82 Long term (current) use of aspirin; Z88.8 Allergy status to other drugs, medicaments and biological substances; Z88.6 Allergy status to analgesic agent

== ENCOUNTER 2019-05-20 23:18 | Inpatient (IN) ==
[2019-05-20] MEDS ORDERED: KETOROLAC TROMETHAMINE 15 MG/ML VIAL IV STA (23:49)
[2019-05-20] MEDS ORDERED: SODIUM CHLORIDE 0.9% 1000ML 1,000 ML IV ONE (23:49)
[2019-05-20] MEDS ORDERED: ACETAMINOPHEN 500 MG TAB PO STA (23:49)
[2019-05-21 00:02] LABS: Appearance Urine Clear (Clear); Bacteria Urine Automated Negative (Negative); Bilirubin Urine Negative (Negative); Blood Urine 1+ (Negative); Color Urine Yellow; Glucose Urine UA Negative (Negative); Ketones Urine Negative (Negative); Leukocyte Esterase Urine 2+ (Negative); Nitrite Urine Negative (Negative); Protein Urine Trace (Negative); Specific Gravity Urine 1.016 (1.000-1.030); Urobilinogen Urine Negative (Negative); WBC Urine Automated >30 /hpf (0-5)
--- NOTE | 2019-05-21 00:10 | Emergency Department Note ---
History of Present Illness General Chief complaint: Illness Stated complaint: BACK PAIN, LEFTSIDE PAIN, WHOLE BODYACHE History of Present Illness Maximum Pain Intensity: 7 This 59-year-old presents to the ER complaining of fever, flank pain, urinary symptoms and lower abdominal pain Location: Generalized Quality: Achy Severity: Moderate Duration: This morning Timing: This morning Context: Symptoms got worse and patient came in Modifying factors: better with nothing; worse with activity Patient did not realize she had a fever until now. She states she feels achy. She did receive her flu vaccine. 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 Patient denies chest pain, dyspnea, vomiting, diarrhea, sore throat, neck stiffness. She is tolerating p.o. fluids and food. No recent antibiotics. Home Medications Home Medications Medication Instructions Recorded Confirmed Type potassium 49.5 mg PO BID 08/01/18 05/21/19 History sodium chloride [Nasal [place] 2 spray INTRANASAL DAILY PRN 08/01/18 05/21/19 History (sodium chloride)] mupirocin 2 % ointment topical kit 1 appln TOP BID 02/07/19 05/21/19 History alprazolam 0.25 mg tablet 0.25 mg PO BID PRN #60 tab 03/07/19 05/21/19 Rx albuterol sulfate 90 mcg/actuation 2 - 4 puff INHALATION Q6 PRN #8.5 03/13/19 05/21/19 Rx aerosol inhaler gm clobetasol 0.05 % topical cream 1 appln TOP BID #15 gm 03/13/19 05/21/19 Rx nystatin 100,000 unit/gram topical 1 appln TOP BID #15 gm 03/13/19 05/21/19 Rx powder amlodipine 5 mg tablet 5 mg PO DAILY #90 tab 03/16/19 05/21/19 Rx clonidine HCl 0.1 mg tablet 0.1 mg PO TID #270 tab 03/16/19 05/21/19 Rx isosorbide mononitrate 30 mg 30 mg PO DAILY #90 tab 03/16/19 05/21/19 Rx tablet,extended release 24 hr metoprolol tartrate 25 mg tablet 25 mg PO BID #180 tab 03/16/19 05/21/19 Rx pantoprazole 40 mg tablet,delayed 40 mg PO DAILY #90 tab 03/16/19 05/21/19 Rx release Allergies Allergy/AdvReac Type Severity Reaction Status Date / Time chlorpheniramine Allergy Intermediate INCREASED Verified 05/21/19 00:44 BP diphenhydramine Allergy Intermediate INCREASED Verified 05/21/19 00:44 BP lisinopril Allergy Intermediate INCREASED Verified 05/21/19 00:44 BLOODPRESSURE loratadine Allergy Intermediate INCREASED Verified 05/21/19 00:44 BP fentanyl AdvReac Intermediate Decreased Verified 05/21/19 00:44 oxygen saturation Past Med/Surg History Medical History Heart disease (Chronic) Surgical History History of partial hysterectomy (Resolved) Family History Mother Dyslipidemia Hypertension Cerebral aneurysm Father Gunshot injury Social History Preferred Language: [place] Communication Ability: Effective Visual Impairment: No Limitations Hearing Ability: Normal marital status: Current Living Situation: Family current occupational status: employed Feels Safe at Home: Yes Smoking Status: Never smoker Hx Alcohol Use: No Hx Substance Use: No Childhood Exposure to Second-Hand Smoke: No Dental Care, Regularly: No Physical Activity Frequency: Daily Seatbelt Use: always Sunscreen Use: Yes Review of Systems A total of 10 systems reviewed and were otherwise negative Physical Exam Vital Signs Vital Signs - 24 hr 05/20/19 23:25 05/21/19 00:07 05/21/19 00:13 Temperature 38.0 C H Temperature Source Oral Pulse Rate 104 H 101 H Pulse Rate from SpO2 Sensor 102 H Respiratory Rate 18 20 Respiratory Effort / Characteristics Non-Labored Spontaneous Respiratory Depth Normal Respiratory Pattern Regular Blood Pressure 152/80 H 154/80 H Blood Pressure Mean 104 87 Blood Pressure Position Sitting Pulse Oximetry 94 96 96 Oxygen Delivery Method Room Air Room Air Room Air Sepsis Recent Fever Within 48 Hours No Sepsis Action Taken by Nursing No Action Required 05/21/19 00:30 05/21/19 00:37 05/21/19 01:04 Temperature 36.9 C Temperature Source Oral Pulse Rate 102 H Pulse Rate from SpO2 Sensor 102 H 93 H Respiratory Rate 22 20 Respiratory Effort / Characteristics Respiratory Depth Respiratory Pattern Blood Pressure 146/82 H 151/91 H Blood Pressure Mean 117 124 Blood Pressure Position Pulse Oximetry 95 96 Oxygen Delivery Method Room Air Room Air Sepsis Recent Fever Within 48 Hours Sepsis Action Taken by Nursing 05/21/19 01:30 05/21/19 02:00 05/21/19 02:30 Temperature Temperature Source Pulse Rate 86 68 64 Pulse Rate from SpO2 Sensor 86 69 64 Respiratory Rate 19 23 23 Respiratory Effort / Characteristics Respiratory Depth Respiratory Pattern Blood Pressure 122/83 123/78 125/88 Blood Pressure Mean 97 95 101 Blood Pressure Position Pulse Oximetry 92 92 93 Oxygen Delivery Method Room Air Room Air Room Air Sepsis Recent Fever Within 48 Hours Sepsis Action Taken by Nursing 05/21/19 03:00 Temperature Temperature Source Pulse Rate 64 Pulse Rate from SpO2 Sensor 64 Respiratory Rate 23 Respiratory Effort / Characteristics Respiratory Depth Respiratory Pattern Blood Pressure 117/74 Blood Pressure Mean 83 Blood Pressure Position Pulse Oximetry 94 Oxygen Delivery Method Room Air Sepsis Recent Fever Within 48 Hours Sepsis Action Taken by Nursing VITALS: Vitals are noted on the nurse's note and reviewed by myself. Vital signs febrile. GENERAL: Pleasant female mildly ill-appearing, in no acute distress, nondiaphoretic, well-developed well-nourished. SKIN: The skin was without rashes, erythema, edema, or bruising. There is no tenting of the skin. Capillary reflex less than 2 seconds. HEAD: Normocephalic atraumatic. EARS: External auditory canals clear, tympanic membranes pearly ball without erythema or effusion bilaterally. EYES: Pupils equal round and reactive to light and accommodation. Conjunctivae without injection, sclerae without icterus. Extraocular movements intact. NOSE: Patent, turbinates without inflammation or discharge. No sinus tenderness. MOUTH: Mucous membranes mildly dry. Pharynx without erythema or exudate. Uvula midline. Airway patent. Tongue does not deviate. NECK: Supple without nuchal rigidity. No lymphadenopathy. No thyromegaly. Cervical spine is nontender. No JVD. HEART: Regular rate and rhythm LUNGS: Clear to auscultation bilaterally without wheezes, rales or rhonchi. No retractions or accessory muscle use. ABDOMEN: Positive bowel sounds x 4. Normal tympanic percussion. Soft, tender to palpation lower abdomen, without masses or organomegaly. Winkler sign negative. No guarding or rebound tenderness. Left CVA tenderness MUSCULOSKELETAL: No muscle atrophy, erythema, or edema noted. NEURO: Patient was alert and oriented to person place and time. Normal sensation to light and sharp touch. No focal neurological deficits. Course Administered Medications Ioversol (Optiray 320 100ml) 95 ml IV ONCE PRN PRN Reason: Interaction Checking Stop: 05/25/19 01:01 Last Admin: 05/21/19 01:03 Dose: 95 ml Documented by: [id number] Discontinued Medications Acetaminophen (Tylenol) 1,000 mg PO NOW STA Stop: 05/20/19 23:50 Last Admin: 05/21/19 00:08 Dose: 1,000 mg Documented by: [id number] Sodium Chloride (Nss 1000ml) 1,000 mls @ 999 mls/hr IV .Q1H1M ONE Stop: 05/21/19 00:49 Last Infusion: 05/21/19 01:11 Dose: 0 mls/hr Documented by: [id number] Admin: 05/21/19 00:08 Dose: 999 mls/hr Documented by: [id number] Ceftriaxone Sodium (Rocephin) 1,000 mg in 50 mls @ 100 mls/hr IV NOW STA Stop: 05/21/19 01:00 Last Infusion: 05/21/19 01:07 Dose: 0 mls/hr Documented by: [id number] Admin: 05/21/19 00:37 Dose: 100 mls/hr Documented by: [id number] Ketorolac Tromethamine (Toradol) 10 mg IV NOW STA Stop: 05/20/19 23:50 Last Admin: 05/21/19 00:09 Dose: 10 mg Documented by: [id number] Potassium Chloride (Klor-Con M10) 30 meq PO NOW STA Stop: 05/21/19 02:01 Last Admin: 05/21/19 02:04 Dose: 30 meq Documented by: [id number] Medical Decision Making Medical Records Attestation: I reviewed the patient's medical records. Home Medications Current Medication List: was personally reviewed by me Laboratory Data Attestation: I reviewed the patient's lab results. Result diagrams: 05/21/19 00:00 05/21/19 00:00 Lab Results 05/20/19 05/21/19 05/21/19 Range/Units 23:40 00:00 00:00 WBC 13.28 H (4.8-10.8) K/uL RBC 4.30 (4.2-5.4) M/uL Hgb 12.8 (12.0-16.0) g/dL Hct 37.4 (37-47) % MCV 87.0 (80-100) fL MCH 29.8 (25-34) pg MCHC 34.2 (32-36) g/dL RDW Std Deviation 42.4 (36.4-46.3) fL RDW Coeff of Johan 13.3 (11.5-14.5) % Plt Count 272 (130-400) K/uL MPV 10.8 H (7.4-10.4) fL Immature Gran % (Auto) 0.2 % Neut % (Auto) 84.7 % Lymph % (Auto) 7.1 % Ransom % (Auto) 7.8 % Eos % (Auto) 0.1 % Baso % (Auto) 0.1 % Immature Gran # (Auto) 0.03 H (0.00-0.02) K/uL Neut # (Auto) 11.26 H (1.4-6.5) K/uL Lymph # (Auto) 0.94 L (1.2-3.4) K/uL Ransom # (Auto) 1.03 H (0.11-0.59) K/uL Eos # (Auto) 0.01 (0-0.5) K/uL Baso # (Auto) 0.01 (0-0.2) K/uL PT 10.7 (9.0-12.0) Seconds INR 1.0 (0.9-1.1) APTT 28.6 (21.0-31.0) Seconds PTT Ratio 1.1 Sodium (136-145) mmol/L Potassium (3.5-5.1) mmol/L Chloride (98-107) mmol/L Carbon Dioxide (21-32) mmol/L Anion Gap (3-11) BUN (7-18) mg/dl Creatinine (0.6-1.2) mg/dl Est Cr Clr Drug Dosing ml/min Est GFR ( Amer) Est GFR (Non-Af Amer) BUN/Creatinine Ratio (10-20) Glucose (70-99) mg/dl Lactate (0.4-2.0) mmol/L Calcium (8.5-10.1) mg/dl Total Bilirubin (0.2-1) mg/dl AST (15-37) U/L ALT (12-78) U/L Alkaline Phosphatase (45-117) U/L Total Protein (6.4-8.2) gm/dl Albumin (3.4-5.0) gm/dl Globulin (2.5-4.0) gm/dl Albumin/Globulin Ratio (0.9-2) Urine Color Yellow Urine Appearance Clear (Clear) Urine pH 5.0 (4.5-7.5) Ur Specific [place] 1.016 (1.000-1.030) Urine Protein Trace H (Negative) Urine Glucose (UA) Negative (Negative) Urine Ketones Negative (Negative) Urine Blood 1+ H (Negative) Urine Nitrite Negative (Negative) Urine Bilirubin Negative (Negative) Urine Urobilinogen Negative (Negative) Ur Leukocyte Esterase 2+ H (Negative) Urine WBC (Auto) >30 H (0-5) /hpf Urine RBC (Auto) 5-10 H (0-4) /hpf U Hyaline Cast (Auto) 1-5 (0-5) /lpf U Epithel Cells (Auto) 5-10 H (0-5) /lpf Urine Bacteria (Auto) Negative (Negative) Influenza Type A (PCR) (Neg) Influenza Type B (PCR) (Neg) 05/21/19 05/21/19 05/21/19 Range/Units 00:00 00:00 00:06 WBC (4.8-10.8) K/uL RBC (4.2-5.4) M/uL Hgb (12.0-16.0) g/dL Hct (37-47) % MCV (80-100) fL MCH (25-34) pg MCHC (32-36) g/dL RDW Std Deviation (36.4-46.3) fL RDW Coeff of Johan (11.5-14.5) % Plt Count (130-400) K/uL MPV (7.4-10.4) fL Immature Gran % (Auto) % Neut % (Auto) % Lymph % (Auto) % Ransom % (Auto) % Eos % (Auto) % Baso % (Auto) % Immature Gran # (Auto) (0.00-0.02) K/uL Neut # (Auto) (1.4-6.5) K/uL Lymph # (Auto) (1.2-3.4) K/uL Ransom # (Auto) (0.11-0.59) K/uL Eos # (Auto) (0-0.5) K/uL Baso # (Auto) (0-0.2) K/uL PT (9.0-12.0) Seconds INR (0.9-1.1) APTT (21.0-31.0) Seconds PTT Ratio Sodium 139 (136-145) mmol/L Potassium 3.2 L (3.5-5.1) mmol/L Chloride 108 H (98-107) mmol/L Carbon Dioxide 25 (21-32) mmol/L Anion Gap 6.0 (3-11) BUN 11 (7-18) mg/dl Creatinine 0.94 (0.6-1.2) mg/dl Est Cr Clr Drug Dosing 56.0 ml/min Est GFR ( Amer) 77.0 Est GFR (Non-Af Amer) 66.4 BUN/Creatinine Ratio 11.5 (10-20) Glucose 126 H (70-99) mg/dl Lactate 1.5 (0.4-2.0) mmol/L Calcium 8.6 (8.5-10.1) mg/dl Total Bilirubin 0.6 (0.2-1) mg/dl AST 12 L (15-37) U/L ALT 16 (12-78) U/L Alkaline Phosphatase 82 (45-117) U/L Total Protein 7.3 (6.4-8.2) gm/dl Albumin 3.7 (3.4-5.0) gm/dl Globulin 3.6 (2.5-4.0) gm/dl Albumin/Globulin Ratio 1.0 (0.9-2) Urine Color Urine Appearance (Clear) Urine pH (4.5-7.5) Ur Specific [place] (1.000-1.030) Urine Protein (Negative) Urine Glucose (UA) (Negative) Urine Ketones (Negative) Urine Blood (Negative) Urine Nitrite (Negative) Urine Bilirubin (Negative) Urine Urobilinogen (Negative) Ur Leukocyte Esterase (Negative) Urine WBC (Auto) (0-5) /hpf Urine RBC (Auto) (0-4) /hpf U Hyaline Cast (Auto) (0-5) /lpf U Epithel Cells (Auto) (0-5) /lpf Urine Bacteria (Auto) (Negative) Influenza Type A (PCR) Neg for Influ A (Neg) Influenza Type B (PCR) Neg for Influ B (Neg) Imaging Data Attestation: I personally reviewed and interpreted this imaging study as follows: MDM Narrative Prior records/ancillary studies reviewed. Triage Nursing notes reviewed. Additional history obtained from family. The patient's history was concerning for fever. Differential diagnosis: Etiologies such as viral syndrome, otitis, pharyngitis, pneumonia, influenza, meningitis, urinary tract infection, sepsis, bacteremia, as well as others were entertained. Physical examination: As above ER treatment provided: IV fluids, Tylenol, Toradol, Rocephin, potassium On reassessment the patient felt better. Diagnostics interpreted by me: The labs revealed leukocytosis, urine concerning for infection and sent for culture Blood cultures pending Negative lactic acid Imaging studies: CT ABDOMEN & PELVIS With Contrast: Comparison to March 09, 2016. There is mild left-sided hydronephrosis and hydroureter down into the left side of the pelvis. There is a 2 mm calcification new the left ureterovesicular junction which appears to be immediately posterior to the distal ureter although a ureteral calculus cannot be completely excluded. There is slight enhancement of the wall of the left ureter suggesting possible ascending urinary tract infection. No overt pyelonephritis is seen. There is also a 2 mm nonobstructive calyceal ca lculus in the lower pole of the left kidney. The liver, gallbladder, spleen, pancreas, and right kidney appear unremarkable. The appendix is normal. Bowel loops are nondilated. No acute inflammatory c hanges are seen involving the bowel. Fat-containing anterior pelvic wall hernia immediately inferior to the umbilicus measuring 4.7 cm without signs of inflammation. Radiologist: Ethan Mendoza MD Chest x-ray with no acute consolidation, pneumothorax or free air per my interpretation. Consultation: A consultation was placed with Dr. Payne. The case was discussed and diagnostics were reviewed. The patient was evaluated in the ER for further treatment. This appears to be consistent with UTI vs early pyelo with possible infected stone. Patient was given antibiotics. Medicine was consulted. Patient is agreeable to treatment plan of admission.. By the evaluation outlined above em ergent etiologies such as otitis, pharyngitis, pneumonia, meningitis, sepsis, bacteremia, as well as others were deemed relatively unlikely. The pt informed about the findings as listed above. All questions were answered and pleased with the treatment. Case reviewed with my attending The chart was completed utilizing [employer] Speech voice recognition software. Grammatical errors, random word insertions, pronoun errors, and incomplete sentences are an occassional consequence of this system due to software limitations, ambient noise, and hardware issues. Any formal questions or surjit rns about the content, text, or information contained within the body of this dictation should be directly addressed to the physician school bus driver/teacher assistant for clarification. Impression & Plan Acute pyelonephritis, Renal colic on left side, Ureterolithiasis Discharge Plan Visit Data Chief Complaint: Illness Stated Complaint: BACK PAIN, LEFTSIDE PAIN, WHOLE BODYACHE ED Provider: Joanne Pickering ED Midlevel Provider: Francisca Quiñones Discharge Problem: Acute pyelonephritis, Renal colic on left side, Ureterolithiasis Patient Disposition: Being Evaluated by Hospitalist Condition: Fair Discharge Instructions Interventions: ED Discharge Assessment Last Done: 05/21/19 03:38
[2019-05-21 00:18] LABS: Basophils # (auto) 0.01 K/uL (0-0.2); Basophils % (auto) 0.1 %; Eosinophils # (auto) 0.01 K/uL (0-0.5); Eosinophils % (auto) 0.1 %; Hematocrit (blood only) 37.4 % (37-47); Hemoglobin 12.8 g/dL (12.0-16.0); Immature Granulocytes # (auto) 0.03 K/uL (0.00-0.02); Immature Granulocytes % (auto) 0.2 %; Lymphocytes # (auto) 0.94 K/uL (1.2-3.4); Lymphocytes % (auto) 7.1 %; Mean Corpuscular Hemoglobin 29.8 pg (25-34); Mean Corpuscular Hgb Conc 34.2 g/dL (32-36); Mean Platelet Volume 10.8 fL (7.4-10.4); Monocytes # (auto) 1.03 K/uL (0.11-0.59); Monocytes % (auto) 7.8 %; Neutrophils # (auto) 11.26 K/uL (1.4-6.5); Neutrophils % (auto) 84.7 %; Platelet Count 272 K/uL (130-400); RDW Coefficient of Variation 13.3 % (11.5-14.5); RDW Standard Deviation 42.4 fL (36.4-46.3); White Blood Count 13.28 K/uL (4.8-10.8)
[2019-05-21] MEDS ORDERED: cefTRIAXone SODIUM 1,000 MG/50 ML BAG IV STA (00:31)
[2019-05-21 00:32] LABS: Partial Thromboplastin Ratio 1.1; Partial Thromboplastin Time 28.6 Seconds (21.0-31.0); Prothrombin Time 10.7 Seconds (9.0-12.0)
[2019-05-21 00:41] LABS: Albumin Level 3.7 gm/dl (3.4-5.0); BUN Creatinine Ratio 11.5 (10-20); Calcium 8.6 mg/dl (8.5-10.1); Est GFR (Non-African American) 66.4; Potassium 3.2 mmol/L (3.5-5.1)
[2019-05-21 00:44] LABS: Bilirubin,Total 0.6 mg/dl (0.2-1); Globulin 3.6 gm/dl (2.5-4.0); Total Protein 7.3 gm/dl (6.4-8.2)
[2019-05-21 00:47] LABS: Influenza A virus by PCR Neg for Influ A (Neg); Influenza B virus by PCR Neg for Influ B (Neg)
[2019-05-21] MEDS ORDERED: IOVERSOL 100ml IV PRN (01:02)
[2019-05-21] MEDS ORDERED: POTASSIUM CHLORIDE 10 MEQ TABCR PO STA (02:00)
--- NOTE | 2019-05-21 03:34 | History & Physical Report ---
Date of Service May 21, 2019 Assessment & Plan (1) Acute left flank pain: 59-year-old female was admitted on 21 May 2019 for left flank pain, ureterolithiasis, hydronephrosis, and UTI. Left flank pain, ureterolithiasis, hydronephrosis, UTI: Admitted for similar symptoms in February 2016. 5 mm ureteral stone with mild hydronephrosis was seen at that time. Ultimately no procedures were necessary. Has had urology follow- up since. Presently, notes acute left flank pain similar to this without vomiting. - In ED, T-max 38.0, mild tachycardia resolved, mild hypertension resolved, with borderline low room SpO2. WBC 13. Lactate 1.5. Influenza negative. Creatinine 0.94. UA positive for WBCs, RBCs, and some epithelial cells. Blood and urine cultures sent. CT a/p (overnight read) noted a mild left-sided hydronephrosis, 2 mm calcification at the left UVJ, and possible ascending UTI without evidence of overt pyelonephritis. - In ED, treated with Tylenol, Toradol, normal saline IVF, and started on ceftriaxone. - Will continue with IV fluids and ceftriaxone. Tylenol and morphine for pain as needed. Consult urology, though hopefully the stone will pass spontaneously. Hypokalemia: Admit K 3.2. At home is on potassium twice a day. Replaced in ED, will monitor. Hyperglycemia: Admit glucose 126. Denies any history of diabetes. Will check a hemoglobin A1c. History of bilateral ovarian masses: On review of her prior imaging reports, she had bilateral ovarian masses. 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 She underwent laparoscopic bilateral salpingo-oophorectomy at that time. - It is unclear what the status of this is. Would likely benefit from close gynecology follow-up upon hospital discharge. Ongoing medical issues: - Hypertension: Continue home amlodipine, clonidine, Imdur, metoprolol. - GERD: Continue home pantoprazole. - Anxiety: Continue home alprazolam as needed. - ? environmental asthma: Rare albuterol use. Code status: Full code. Diet: N.p.o. for now. DVT prophy: Chemical profile held in case of surgical procedure. SCDs. PT/OT: Deferred. Disbo: Admit to [facility]. (2) Ureterolithiasis: (3) Hydronephrosis: (4) Urinary tract infection: (5) Hypokalemia: (6) Hyperglycemia: (7) Hypertension: (8) GERD (gastroesophageal reflux disease): (9) Anxiety: History of Present Illness Primary Care Provider: Judy Nelson MD 59-year-old female presents requesting evaluation for left flank pain. Patient has a history of a left ureteral stone back in 2016. She says ultimately this pain self resolved but that she has been following up with urology (Dr. Abdalla) ever since. Denies any previous history of urological procedures. In the afternoon on the day prior to admission (23Dec) patient noted the rather quick onset of left flank pain with minimal radiation more anteriorly. Also noted some urinary pressure. Says it feels similar to symptoms back in 2016. She denies any dysuria, no hematuria, N/V/D, anterior abdominal pain, known fever (though does say she was febrile on arrival here), or any other acute concerns. Did try some Tylenol for this earlier today. - As a side note, on review of her medical history, previous CT scans noted bilateral ovarian masses. When asked about this, patient did not seem to be aware of this. She did say that she had some sort of pelvic surgery but was unclear on the details. She says normally she follows with Dr. Gutierrez of gynecology but has not seen her for years. - Past medical history includes heart disease, left renal stones, anxiety, GERD, abdominal wall hernia. - Past surgical history includes laparoscopic bilateral salpingo-oophorectomy. - Social history includes never smoking. Denies alcohol use. Lives at home with family. Works in the [employer] business. Allergies Allergy/AdvReac Type Severity Reaction Status Date / Time chlorpheniramine Allergy Intermediate INCREASED Verified 05/21/19 00:44 BP diphenhydramine Allergy Intermediate INCREASED Verified 05/21/19 00:44 BP lisinopril Allergy Intermediate INCREASED Verified 05/21/19 00:44 BLOODPRESSURE loratadine Allergy Intermediate INCREASED Verified 05/21/19 00:44 BP fentanyl AdvReac Intermediate Decreased Verified 05/21/19 00:44 oxygen saturation Home Medications Home Medications Medication Instructions Recorded Confirmed Type potassium 49.5 mg PO BID 08/01/18 05/21/19 History sodium chloride [Nasal [place] 2 spray INTRANASAL DAILY PRN 08/01/18 05/21/19 History (sodium chloride)] mupirocin 2 % ointment topical kit 1 appln TOP BID 02/07/19 05/21/19 History alprazolam 0.25 mg tablet 0.25 mg PO BID PRN #60 tab 03/07/19 05/21/19 Rx albuterol sulfate 90 mcg/actuation 2 - 4 puff INHALATION Q6 PRN #8.5 03/13/19 05/21/19 Rx aerosol inhaler gm clobetasol 0.05 % topical cream 1 appln TOP BID #15 gm 03/13/19 05/21/19 Rx nystatin 100,000 unit/gram topical 1 appln TOP BID #15 gm 03/13/19 05/21/19 Rx powder amlodipine 5 mg tablet 5 mg PO DAILY #90 tab 03/16/19 05/21/19 Rx clonidine HCl 0.1 mg tablet 0.1 mg PO TID #270 tab 03/16/19 05/21/19 Rx isosorbide mononitrate 30 mg 30 mg PO DAILY #90 tab 03/16/19 05/21/19 Rx tablet,extended release 24 hr metoprolol tartrate 25 mg tablet 25 mg PO BID #180 tab 03/16/19 05/21/19 Rx pantoprazole 40 mg tablet,delayed 40 mg PO DAILY #90 tab 03/16/19 05/21/19 Rx release Past Med/Surg History Medical History Heart disease (Chronic) Surgical History History of partial hysterectomy (Resolved) Family History Mother Dyslipidemia Hypertension Cerebral aneurysm Father Gunshot injury Social History Preferred Language: [place] Communication Ability: Effective Visual Impairment: No Limitations Hearing Ability: Normal Outplacement Consultant Required: No Beliefs That Will Affect Care: None marital status: Current Living Situation: Spouse current occupational status: employed Feels Safe at Home: Yes Smoking Status: Never smoker Hx Alcohol Use: No Hx Substance Use: No Childhood Exposure to Second-Hand Smoke: No Dental Care, Regularly: No Physical Activity Frequency: Daily Seatbelt Use: always Sunscreen Use: Yes Review of Systems Review of Systems: Constitutional: Denies fevers (except for on arrival here), chills, focal weakness Eyes: Denies any visual loss or diplopia ENT: Denies any ear/nose/throat pain or difficulty speaking or swallowing Respiratory: Denies any dyspnea, cough, hemoptysis Cardiovascular: Denies any chest pain or feeling of edema Gastrointestinal: Denies any abdominal pain, nausea/vomiting/diarrhea Musculoskeletal: Denies any acute extremity pains, myalgias, or focal weakness Skin: Denies any known acute rashes or lesions Neuro: Denies any headache, acute focal weakness or numbness, or difficulties with speech or swallow. Physical Exam Physical Exam: GENERAL: Awake, alert, well-appearing, in no acute distress. HENT: Normocephalic, atraumatic. Oropharynx unremarkable. EYES: Normal conjunctiva. Sclera non-icteric. NECK: Inspection normal. Supple and full ROM. No nuchal rigidity. CARDIAC: +S1S2 RRR, no murmurs. RESPIRATORY: Clear to auscultation. No wheezes or rales. Normal respiratory effort. GI: +BS, soft, non-distended. No tenderness to palpation anteriorly. No rebound or guarding. Positive left-sided CVA tenderness. No right-sided CVA tenderness. EXTREMITIES: No pedal edema or calf tenderness. Moving all extremities naturally and easily. NEURO: No gross neuro deficits. Results & Data Vital Signs (Past 12 Hours) Vital Signs Temp Pulse Resp BP Pulse Ox 05/21/19 03:00 64 23 117/74 94 05/21/19 02:30 64 23 125/88 93 05/21/19 02:00 68 23 123/78 92 05/21/19 01:30 86 19 122/83 92 05/21/19 01:04 20 151/91 H 96 05/21/19 00:37 36.9 C 05/21/19 00:30 102 H 22 146/82 H 95 05/21/19 00:13 96 05/21/19 00:07 101 H 20 154/80 H 96 05/20/19 23:25 38.0 C H 104 H 18 152/80 H 94 Laboratory Results 05/21/19 05/21/19 05/21/19 Range/Units 00:06 00:00 00:00 WBC (4.8-10.8) K/uL RBC (4.2-5.4) M/uL Hgb (12.0-16.0) g/dL Hct (37-47) % MCV (80-100) fL MCH (25-34) pg MCHC (32-36) g/dL RDW Std Deviation (36.4-46.3) fL RDW Coeff of Johan (11.5-14.5) % Plt Count (130-400) K/uL MPV (7.4-10.4) fL Immature Gran % (Auto) % Neut % (Auto) % Lymph % (Auto) % [place] % (Auto) % Eos % (Auto) % Baso % (Auto) % Immature Gran # (Auto) (0.00-0.02) K/uL Neut # (Auto) (1.4-6.5) K/uL Lymph # (Auto) (1.2-3.4) K/uL [place] # (Auto) (0.11-0.59) K/uL Eos # (Auto) (0-0.5) K/uL Baso # (Auto) (0-0.2) K/uL PT (9.0-12.0) Seconds INR (0.9-1.1) APTT (21.0-31.0) Seconds PTT Ratio Sodium 139 (136-145) mmol/L Potassium 3.2 L (3.5-5.1) mmol/L Chloride 108 H (98-107) mmol/L Carbon Dioxide 25 (21-32) mmol/L Anion Gap 6.0 (3-11) BUN 11 (7-18) mg/dl Creatinine 0.94 (0.6-1.2) mg/dl Est Cr Clr Drug Dosing 56.0 ml/min Est GFR ( Amer) 77.0 Est GFR (Non-Af Amer) 66.4 BUN/Creatinine Ratio 11.5 (10-20) Glucose 126 H (70-99) mg/dl Lactate 1.5 (0.4-2.0) mmol/L Calcium 8.6 (8.5-10.1) mg/dl Total Bilirubin 0.6 (0.2-1) mg/dl AST 12 L (15-37) U/L ALT 16 (12-78) U/L Alkaline Phosphatase 82 (45-117) U/L Total Protein 7.3 (6.4-8.2) gm/dl Albumin 3.7 (3.4-5.0) gm/dl Globulin 3.6 (2.5-4.0) gm/dl Albumin/Globulin Ratio 1.0 (0.9-2) Urine Color Urine Appearance (Clear) Urine pH (4.5-7.5) Ur Specific [place] (1.000-1.030) Urine Protein (Negative) Urine Glucose (UA) (Negative) Urine Ketones (Negative) Urine Blood (Negative) Urine Nitrite (Negative) Urine Bilirubin (Negative) Urine Urobilinogen (Negative) Ur Leukocyte Esterase (Negative) Urine WBC (Auto) (0-5) /hpf Urine RBC (Auto) (0-4) /hpf U Hyaline Cast (Auto) (0-5) /lpf U Epithel Cells (Auto) (0-5) /lpf Urine Bacteria (Auto) (Negative) Influenza Type A (PCR) Neg for Influ A (Neg) Influenza Type B (PCR) Neg for Influ B (Neg) 05/21/19 05/21/19 05/20/19 Range/Units 00:00 00:00 23:40 WBC 13.28 H (4.8-10.8) K/uL RBC 4.30 (4.2-5.4) M/uL Hgb 12.8 (12.0-16.0) g/dL Hct 37.4 (37-47) % MCV 87.0 (80-100) fL MCH 29.8 (25-34) pg MCHC 34.2 (32-36) g/dL RDW Std Deviation 42.4 (36.4-46.3) fL RDW Coeff of Johan 13.3 (11.5-14.5) % Plt Count 272 (130-400) K/uL MPV 10.8 H (7.4-10.4) fL Immature Gran % (Auto) 0.2 % Neut % (Auto) 84.7 % Lymph % (Auto) 7.1 % [place] % (Auto) 7.8 % Eos % (Auto) 0.1 % Baso % (Auto) 0.1 % Immature Gran # (Auto) 0.03 H (0.00-0.02) K/uL Neut # (Auto) 11.26 H (1.4-6.5) K/uL Lymph # (Auto) 0.94 L (1.2-3.4) K/uL [place] # (Auto) 1.03 H (0.11-0.59) K/uL Eos # (Auto) 0.01 (0-0.5) K/uL Baso # (Auto) 0.01 (0-0.2) K/uL PT 10.7 (9.0-12.0) Seconds INR 1.0 (0.9-1.1) APTT 28.6 (21.0-31.0) Seconds PTT Ratio 1.1 Sodium (136-145) mmol/L Potassium (3.5-5.1) mmol/L Chloride (98-107) mmol/L Carbon Dioxide (21-32) mmol/L Anion Gap (3-11) BUN (7-18) mg/dl Creatinine (0.6-1.2) mg/dl Est Cr Clr Drug Dosing ml/min Est GFR ( Amer) Est GFR (Non-Af Amer) BUN/Creatinine Ratio (10-20) Glucose (70-99) mg/dl Lactate (0.4-2.0) mmol/L Calcium (8.5-10.1) mg/dl Total Bilirubin (0.2-1) mg/dl AST (15-37) U/L ALT (12-78) U/L Alkaline Phosphatase (45-117) U/L Total Protein (6.4-8.2) gm/dl Albumin (3.4-5.0) gm/dl Globulin (2.5-4.0) gm/dl Albumin/Globulin Ratio (0.9-2) Urine Color Yellow Urine Appearance Clear (Clear) Urine pH 5.0 (4.5-7.5) Ur Specific [place] 1.016 (1.000-1.030) Urine Protein Trace H (Negative) Urine Glucose (UA) Negative (Negative) Urine Ketones Negative (Negative) Urine Blood 1+ H (Negative) Urine Nitrite Negative (Negative) Urine Bilirubin Negative (Negative) Urine Urobilinogen Negative (Negative) Ur Leukocyte Esterase 2+ H (Negative) Urine WBC (Auto) >30 H (0-5) /hpf Urine RBC (Auto) 5-10 H (0-4) /hpf U Hyaline Cast (Auto) 1-5 (0-5) /lpf U Epithel Cells (Auto) 5-10 H (0-5) /lpf Urine Bacteria (Auto) Negative (Negative) Influenza Type A (PCR) (Neg) Influenza Type B (PCR) (Neg) Medications Administered Ioversol (Optiray 320 100ml) 95 ml IV ONCE PRN PRN Reason: Interaction Checking Stop: 05/25/19 01:01 Last Admin: 05/21/19 01:03 Dose: 95 ml Documented by: [id number] Discontinued Medications Acetaminophen (Tylenol) 1,000 mg PO NOW STA Stop: 05/20/19 23:50 Last Admin: 05/21/19 00:08 Dose: 1,000 mg Documented by: [id number] Sodium Chloride (Nss 1000ml) 1,000 mls @ 999 mls/hr IV .Q1H1M ONE Stop: 05/21/19 00:49 Last Infusion: 05/21/19 01:11 Dose: 0 mls/hr Documented by: [id number] Admin: 05/21/19 00:08 Dose: 999 mls/hr Documented by: [id number] Ceftriaxone Sodium (Rocephin) 1,000 mg in 50 mls @ 100 mls/hr IV NOW STA Stop: 05/21/19 01:00 Last Infusion: 05/21/19 01:07 Dose: 0 mls/hr Documented by: [id number] Admin: 05/21/19 00:37 Dose: 100 mls/hr Documented by: [id number] Ketorolac Tromethamine (Toradol) 10 mg IV NOW STA Stop: 05/20/19 23:50 Last Admin: 05/21/19 00:09 Dose: 10 mg Documented by: [id number] Potassium Chloride (Klor-Con M10) 30 meq PO NOW STA Stop: 05/21/19 02:01 Last Admin: 05/21/19 02:04 Dose: 30 meq Documented by: [id number] Code Status & VTE Plan Code Status Full code VTE Prophylaxis Plan VTE Prophylaxis will be ordered: Yes Supervising Physician Co-Signing Physician Notes Attending addendum: I have physically seen this patient, have supervised the medical residents activities, and agree with the H&P unless as otherwise noted. Assessment and Plan: 2 mm left UVJ stone with mild left hydroureteronephrosis- Admit to medical surgical floor bed. N.p.o. after midnight. IV fluids. Ceftriaxone 1 g IV daily. Tylenol 650 mg p.o. every 6 hours PRN mild pain or temperature. Morphine 4 mg IV every 4 hours as needed severe pain. Consult urology. Hypertension- Continue amlodipine, clonidine, Imdur and metoprolol with hold parameters. Remainder of orders and notations as noted. Resident Activity Tracking Resident Involvement: Resident Care Provided Care Provided: [facility]
[2019-05-21] MEDS ORDERED: ONDANSETRON INJ 2 MG/ML 2 ML VIAL IV PRN (03:52)
[2019-05-21] MEDS ORDERED: ALPRAZolam 0.25 MG TABLET PO PRN (03:52)
[2019-05-21] MEDS ORDERED: ACETAMINOPHEN 325 MG TAB PO PRN (03:52)
[2019-05-21] MEDS ORDERED: MoRPHine SULFATE 2 MG/ML CARP IV PRN (03:52)
[2019-05-21] MEDS: SODIUM CHLORIDE 0.9% 1000ML 1,000 ML IV SCH ×3 (04:11→20:48)
--- NOTE | 2019-05-21 07:03 | XRay Report ---
XR chest 1V portable CLINICAL HISTORY: 59 years-old Female presenting with Sepsis. TECHNIQUE: Portable upright AP view of the chest was obtained. COMPARISON: 02/12/2017. FINDINGS: Atherosclerosis of the aortic arch. Cardiac silhouette normal in size. No focal opacity. No large eff usion or pneumothorax. Mild degenerative changes in the midthoracic spine. Upper abdomen normal. IMPRESSION: 1. No acute cardiopulmonary disease. ACT 112: Negative or not required by law. Electronically signed by: Errol Jeffers M.D. 05/21/2019 7:01 AM
--- NOTE | 2019-05-21 07:17 | CT Scan Report ---
ABDOMEN AND PELVIS CT WITH IV CONTRAST CT DOSE: 319.96 mGy.cm HISTORY: Acute left-sided flank with lower abdominal pain left flank pain, UA sx, lower abd pain TECHNIQUE: Multiaxial CT images of the abdomen and pelvis were performed following the IV administrat ion of 95 cc of Optiray 320, A dose lowering technique was utilized adhering to the principles of [place] MINNA. COMPARISON STUDY: CT abdomen and pelvis 03/09/2016 FINDINGS: Minimal groundglass opacities of the left lung base suggest probable atelectasis. No pneumatosis or p neumoperitoneum. The imaged inferior cardiac chambers are unremarkable. Minimal soft tissue prominenc e of the fundal gallbladder may reflect fundal adenomyomatosis. The liver, spleen, pancreas and adren al glands are unremarkable. 2 mm nonobstructing calculus of the inferior pole left kidney. Minimal left perinephric stranding. Mi ld cortical scarring and parenchymal thinning of the superior pole left kidney. 10 mm cyst of the lat eral interpolar left kidney. There is mild left-sided hydroureteronephrosis with urothelial thickenin g and enhancement of the left renal collecting system and left ureter. No definite obstructing ureter al calculus or lesion identified. 2 mm calcification of the left hemipelvis on image 366 series 3 is suggestive of a phlebolith posterior to the ureter. There are a few tiny right-sided renal hypodensit ies suggestive of probable cysts. Mild dilation of the right ureter without hydronephrosis. Mild urin fabian bladder distention. Uterus is unremarkable. Surgical clip of the right adnexum. Previously descri bed adnexal lesions are not present on this exam. No aortic aneurysm or adenopathy. No bowel obstruction or bowel wall thickening. Colonic diverticulosis without acute diverticulitis. N ormal appendix. Fat filled infraumbilical hernia, diastases of 2.8 cm. Multilevel spondylitic spurrin g and facet arthrosis. Moderate L4-L5 disc space narrowing. IMPRESSION: 1. Mild left-sided hydroureteronephrosis with urothelial thickening and enhancement of the left renal collecting system and left ureter. Additionally, there is mild dilation of the right ureter. No obst ructing distal ureteral calculi or lesions identified. Correlate with urinalysis to exclude ascending pyelitis/ureteritis. 2. Nonobstructing left nephrolithiasis. 3. Mild urinary bladder distention. 4. No bowel obstruction or bowel wall thickening. Normal appendix. 5. Colonic diverticulosis without acute diverticulitis. 6. Small to moderate fat filled infraumbilical hernia. ACT 112: Negative or not required by law. The above report was generated using voice recognition software. It may contain grammatical, syntax o r spelling errors. Electronically signed by: Jl Delcid M.D. 05/21/2019 7:16 AM
--- NOTE | 2019-05-21 07:58 | Urology Consultation ---
Date of Consultation May 21, 2019 Assessment & Plan (1) Acute pyelonephritis: (2) Urinary tract infection: 59yo F with bilateral hydronephrosis, no obstructing stones, suspected pyelonephritis CT findings reviewed with Dr. Erickson, no indication for acute surgical intervention. Flank pain resolved, VS stable, nontoxic appearing. Continue broad spectrum abx while awaiting UC&S and BCx Expect fevers for the next 48-72 hours despite appropriate abx coverage. Plan for bladder scans qshift x24 hours. Place raza catheter for PVR >300cc. Will continue to follow to monitor voiding. Thank you for the consultation. History of Present Illness Reason for Consultation: pyelo, hydronephrosis Requesting Physician: Dr. Chinchilla Attending Physician: Antonio Chinchilla MD History of Present Illness 59yo F admitted via [facility] for complaints of fever, left flank pain, LUTS and abdominal pain. CT reveals bilateral hydronephrosis, left > right, distended bladder, small nonobs left renal stones. Tmax 38C upon arrival, Cr WNL, leukocytosis of 13K. Currently on Ceftriaxone IV Pt appears comfortable in bed this AM. Denies pain, nausea. Denies dysuria, hematuria. Acknowledges suprapubic pressure. She did have to get up to void urgently during interview. States she had a similar episode in 2016, with 5mm obs stone at that time which did not require surgical intervention. Allergies Allergy/AdvReac Type Severity Reaction Status Date / Time chlorpheniramine Allergy Intermediate INCREASED Verified 05/21/19 00:44 BP diphenhydramine Allergy Intermediate INCREASED Verified 05/21/19 00:44 BP lisinopril Allergy Intermediate INCREASED Verified 05/21/19 00:44 BLOODPRESSURE loratadine Allergy Intermediate INCREASED Verified 05/21/19 00:44 BP fentanyl AdvReac Intermediate Decreased Verified 05/21/19 00:44 oxygen saturation Home Medications Home Medications Medication Instructions Recorded Confirmed Type potassium 49.5 mg PO BID 08/01/18 05/21/19 History sodium chloride [Nasal [place] 2 spray INTRANASAL DAILY PRN 08/01/18 05/21/19 History (sodium chloride)] mupirocin 2 % ointment topical kit 1 appln TOP BID 02/07/19 05/21/19 History alprazolam 0.25 mg tablet 0.25 mg PO BID PRN #60 tab 03/07/19 05/21/19 Rx albuterol sulfate 90 mcg/actuation 2 - 4 puff INHALATION Q6 PRN #8.5 03/13/19 05/21/19 Rx aerosol inhaler gm clobetasol 0.05 % topical cream 1 appln TOP BID #15 gm 03/13/19 05/21/19 Rx nystatin 100,000 unit/gram topical 1 appln TOP BID #15 gm 03/13/19 05/21/19 Rx powder amlodipine 5 mg tablet 5 mg PO DAILY #90 tab 03/16/19 05/21/19 Rx clonidine HCl 0.1 mg tablet 0.1 mg PO TID #270 tab 03/16/19 05/21/19 Rx isosorbide mononitrate 30 mg 30 mg PO DAILY #90 tab 03/16/19 05/21/19 Rx tablet,extended release 24 hr metoprolol tartrate 25 mg tablet 25 mg PO BID #180 tab 03/16/19 05/21/19 Rx pantoprazole 40 mg tablet,delayed 40 mg PO DAILY #90 tab 03/16/19 05/21/19 Rx release Patient History Medical History Heart disease (Chronic) Surgical History History of partial hysterectomy (Resolved) Family History Mother Dyslipidemia Hypertension Cerebral aneurysm Father Gunshot injury Social History Preferred Language: [place] Communication Ability: Effective Visual Impairment: No Limitations Hearing Ability: Normal Sample Mounter Required: No Beliefs That Will Affect Care: None marital status: Current Living Situation: Spouse current occupational status: employed Feels Safe at Home: Yes Smoking Status: Never smoker Hx Alcohol Use: No Hx Substance Use: No Childhood Exposure to Second-Hand Smoke: No Dental Care, Regularly: No Physical Activity Frequency: Daily Seatbelt Use: always Sunscreen Use: Yes Review of Systems Review of Systems: All systems reviewed & are unremarkable except as noted in HPI & below Physical Exam Constitutional: + frail appearing; no acute distress and not ill appearing Eyes: no nystagmus ENMT: Ears: no hearing impairment Neck: trachea midline Respiratory: no respiratory distress and no cough Cardiovascular: Vessels: no JVD Chest (Breasts): Chest: normal inspection of chest Gastrointestinal (Abdomen): Inspection/Auscultation: abdomen not distended and no abdominal edema Percussion/Palpation: abdomen soft; abdomen nontender Musculoskeletal: Head/Neck/Chest: normocephalic and head atraumatic Skin: no rashes, warm and dry Neurologic: awake; not confused and not obtunded Psychiatric: Orientation: alert and oriented x 3 Eye Contact: good eye contact Affect: no depressed affect Genitourinary: + bladder abnormality (distended) Lymphatic: no lymphadenopathy and no lymphedema Results & Data Vital Signs (Past 12 Hours) Vital Signs Temp Pulse Pulse Resp BP BP Pulse Ox 05/21/19 03:48 36.9 C 61 18 143/82 H 94 05/21/19 03:38 68 18 122/72 95 05/21/19 03:00 64 23 117/74 94 05/21/19 02:30 64 23 125/88 93 05/21/19 02:00 68 23 123/78 92 05/21/19 01:30 86 19 122/83 92 05/21/19 01:04 20 151/91 H 96 05/21/19 00:37 36.9 C 05/21/19 00:30 102 H 22 146/82 H 95 05/21/19 00:13 96 05/21/19 00:07 101 H 20 154/80 H 96 05/20/19 23:25 38.0 C H 104 H 18 152/80 H 94 PG Care Time/CCT Total # of Minutes Spent Total Time Spent with Patient: Total time spent is greater than 50% in coordination of care (as documented) at patient's floor/unit and/or counseling patient:
[2019-05-21] MEDS: cloNIDine HCL 0.1 MG TAB PO SCH ×3 (09:51→20:51)
[2019-05-21] MEDS: METOPROLOL TARTRATE 25 MG TAB PO SCH ×2 (09:51→20:52)
[2019-05-21] MEDS: AMLODIPINE BESYLATE 5 MG TAB PO SCH (09:52)
[2019-05-21] MEDS: MUPIROCIN 2% OINT 22 GM TUBE EXT SCH ×2 (09:52→20:48)
[2019-05-21] MEDS: ISOSORBIDE MONO EXTENDED REL 30 MG TABCR PO SCH (09:52)
[2019-05-21] MEDS: PANTOprazole 40 MG TAB PO SCH (09:52)
[2019-05-21] MEDS: NYSTATIN POWDER 15GM BTL EXT SCH ×2 (09:52→20:49)
[2019-05-21 13:11] LABS: Estimated Average Glucose 114 mg/dl; Hemoglobin A1C 5.6 % (4.5-5.6)
[2019-05-21 13:30] LABS: BUN Creatinine Ratio 12.4 (10-20); Calcium 8.9 mg/dl (8.5-10.1); Creatinine Clr Calc Pharmacy 64.9 ml/min; Est GFR (African American) 92.1; Est GFR (Non-African American) 79.5; Potassium 3.7 mmol/L (3.5-5.1)
--- NOTE | 2019-05-21 23:55 | Communication Note ---
Date of Service: May 21, 2019 Patient was seen and examined by myself. Admitted same day therefore no billing for this encounter. Patient reports marked improvement since admission after antibiotics. Mild CVA tenderness on exam. Will have 48 hours of antibiotics by tomorrow morning and if stable likely can be discharged with oral antibiotics tomorrow.
[2019-05-22] MEDS ORDERED: cefTRIAXone SODIUM 1,000 MG in DEXTROSE 5% 50 ML IV SCH (01:00)
[2019-05-22] MEDS: LACTATED RINGER'S 1,000 ML IV SCH ×2 (01:05→07:54)
--- NOTE | 2019-05-22 04:42 | Billing Data ---
Date of Service May 22, 2019 Coding Level of Care Code 62456 Initial Inpt Care Lvl 2
[2019-05-22 06:22] LABS: Hematocrit (blood only) 36.2 % (37-47); Hemoglobin 12.1 g/dL (12.0-16.0); Mean Corpuscular Hemoglobin 29.6 pg (25-34); Mean Corpuscular Hgb Conc 33.4 g/dL (32-36); Mean Corpuscular Volume 88.5 fL (80-100); Mean Platelet Volume 10.8 fL (7.4-10.4); Platelet Count 258 K/uL (130-400); RDW Coefficient of Variation 13.2 % (11.5-14.5); RDW Standard Deviation 43.1 fL (36.4-46.3); Red Blood Count 4.09 M/uL (4.2-5.4); White Blood Count 7.82 K/uL (4.8-10.8)
[2019-05-22 06:50] LABS: BUN Creatinine Ratio 13.6 (10-20); Calcium 8.9 mg/dl (8.5-10.1); Creatinine Clr Calc Pharmacy 66.5 ml/min; Est GFR (Non-African American) 81.9; Potassium 3.5 mmol/L (3.5-5.1)
[2019-05-22] MEDS: NYSTATIN POWDER 15GM BTL EXT SCH (07:55)
[2019-05-22] MEDS: MUPIROCIN 2% OINT 22 GM TUBE EXT SCH (07:55)
[2019-05-22] MEDS: cloNIDine HCL 0.1 MG TAB PO SCH (07:56)
[2019-05-22] MEDS: METOPROLOL TARTRATE 25 MG TAB PO SCH (07:56)
[2019-05-22] MEDS: AMLODIPINE BESYLATE 5 MG TAB PO SCH (07:56)
[2019-05-22] MEDS: PANTOprazole 40 MG TAB PO SCH (07:56)
[2019-05-22] MEDS: ISOSORBIDE MONO EXTENDED REL 30 MG TABCR PO SCH (07:56)
--- NOTE | 2019-05-22 10:51 | Urology Progress Note ---
Date of Service May 22, 2019 Assessment & Plan (1) Acute pyelonephritis: Assessment Pyelonephritis Patient much improved since starting antibiotics Would continue antibiotics for 21 days Subjective -Urine growing out E. coli-sensitivities pending Hospital day #1 pyelonephritis Patient is afebrile vital signs are stable No complaints offered she says she feels much better since being on the antibiotic Denies any flank pain Voiding without difficulty Cultures pending Physical Exam Physical Exam: Constitutional Well-developed well-nourished In no acute distress, Healthy appearing Neuro/psych Alert and oriented x3 Normal mood Normal affect Normal coordination Skin Normal color Normal turgor No rashes Warm and Dry Neck Normal visual inspection Pulmonary Normal rhythm and effort No respiratory distress No audible wheezes Able to speak in complete sentences Cardiac No peripheral edema Results & Data Vital Signs (Past 12 Hours) Vital Signs Temp Pulse Resp BP Pulse Ox 05/22/19 07:48 36.8 C 16 136/72 95 05/21/19 22:50 37.3 C 68 16 142/77 H 95 PG Care Time/CCT Total # of Minutes Spent Total Time Spent with Patient: Total time spent is greater than 50% in coordination of care (as documented) at patient's floor/unit and/or counseling patient:
[2019-05-22] MEDS ORDERED: CIPROFLOXACIN 500MG HOME PACK PO ONE (11:28)
[2019-05-22] MEDS ORDERED: CIPROFLOXACIN 500 MG TAB PO ONE (11:30)
--- NOTE | 2019-05-22 12:22 | Discharge Summary ---
Date of Service May 22, 2019 Admission HPI Per Admitting Provider 59-year-old female presents requesting evaluation for left flank pain. Patient has a history of a left ureteral stone back in 2016. She says ultimately this pain self resolved but that she has been following up with urology (Dr. Abdalla) ever since. Denies any previous history of urological procedures. In the afternoon on the day prior to admission (23Dec) patient noted the rather quick onset of left flank pain with minimal radiation more anteriorly. Also noted some urinary pressure. Says it feels similar to symptoms back in 2016. She denies any dysuria, no hematuria, N/V/D, anterior abdominal pain, known fever (though does say she was febrile on arrival here), or any other acute concerns. Did try some Tylenol for this earlier today. - As a side note, on review of her medical history, previous CT scans noted bilateral ovarian masses. When asked about this, patient did not seem to be aware of this. She did say that she had some sort of pelvic surgery but was unclear on the details. She says normally she follows with Dr. Gutierrez of gynecology but has not seen her for years. - Past medical history includes heart disease, left renal stones, anxiety, GERD, abdominal wall hernia. - Past surgical history includes laparoscopic bilateral salpingo-oophorectomy. - Social history includes never smoking. Denies alcohol use. Lives at home with family. Works in the [employer] business. Admission Exam Per Admitting Provider GENERAL: Awake, alert, well-appearing, in no acute distress. HENT: Normocephalic, atraumatic. Oropharynx unremarkable. EYES: Normal conjunctiva. Sclera non-icteric. NECK: Inspection normal. Supple and full ROM. No nuchal rigidity. CARDIAC: +S1S2 RRR, no murmurs. RESPIRATORY: Clear to auscultation. No wheezes or rales. Normal respiratory effort. GI: +BS, soft, non-distended. No tenderness to palpation anteriorly. No rebound or guarding. Positive left-sided CVA tenderness. No right-sided CVA tenderness. EXTREMITIES: No pedal edema or calf tenderness. Moving all extremities naturally and easily. NEURO: No gross neuro deficits. Principal Diagnosis Left ascending pyelitis/ureteritis (kidney and ureter infection) Non-obstructing left nephrolithiasis (kidney stone) Discharge Exam Constitutional well developed and well nourished; no acute distress and not ill appearing Eyes + anicteric sclerae; normal pupil size and no nystagmus ENMT external ear and nose normal, oropharynx normal Neck trachea midline Respiratory normal respiratory effort, lungs clear to auscultation Cardiovascular RRR, no murmur, no edema Chest (Breasts) Chest: normal inspection of chest Gastrointestinal (Abdomen) Inspection/Auscultation: abdomen normal to inspection and normal bowel sounds; abdomen not distended Percussion/Palpation: abdomen soft; abdomen nontender, no guarding and abdomen not rigid Musculoskeletal no cyanosis or clubbing, extremities motor strength 5/5 Head/Neck/Chest: normocephalic and head atraumatic Skin no rashes, warm and dry Neurologic moves all extremities and awake; not confused Psychiatric A+Ox3, euthymic affect Genitourinary + CVA tenderness (left mild) Discharge Data Allergies Allergy/AdvReac Type Severity Reaction Status Date / Time chlorpheniramine Allergy Intermediate INCREASED Verified 05/21/19 00:44 BP diphenhydramine Allergy Intermediate INCREASED Verified 05/21/19 00:44 BP lisinopril Allergy Intermediate INCREASED Verified 05/21/19 00:44 BLOODPRESSURE loratadine Allergy Intermediate INCREASED Verified 05/21/19 00:44 BP fentanyl AdvReac Intermediate Decreased Verified 05/21/19 00:44 oxygen saturation Consultations 05/21/19 02:00 ED Decision to Admit Stat 05/21/19 03:52 Consult Urology Routine Ordered Studies 05/20/19 23:49 CT abd pelvis IV con only Urgent Hospital Course (1) Pyelitis: Jordyn Orellana is a 59 year old female with known history of kidney stones admitted to [facility] from to 2018 for left flank pain. She was diagnosed with non obstructing 2mm stone in the inferior pole of left kidney, mild left sided hydronephrosis and acute pyelitis/ureteritis (which was the main issue causing her pain). This was treated with IV antibiotics ( ceftriaxone x2 doses) and she was switched to ciprofloxacin for a full treatment course of total 14 days. Sensitivities of the E. coli grown are outstanding at this time and you will be contacted if the antibiotic is resistant to ciprofloxacin. Recommend taking probiotics while on antibiotics to reduce the risk of antibiotic associated diarrhea. She was advised to follow up with her primary care provider within the next 2 weeks from discharge. (2) Acute left flank pain: (3) Hydronephrosis: (4) Hypokalemia: (5) Hyperglycemia: Total Time Total Time Spent Total Time Spent (In Minutes): 45 Total Time Includes: Examination of the Patient, Discharge Planning, Medication Reconciliation and Communication With Other Providers (Dr Palm) Discharge Plan Discharge Items Patient Disposition: Home - Self-Care Reason For Visit: Left flank pain Discharge Diagnosis: Left ascending pyelitis/ureteritis (kidney and ureter infection) Non-obstructing left nephrolithiasis (kidney stone) Condition on Discharge: Fair Activity: Resume your previous activity Non-emergency contact: Primary Care Provider Call non-emergency contact if: you have any medication questions and your symptoms worsen Follow-up/Referrals: Judy Nelson MD [Primary Care Provider] - Diet: Carb Consistent or DM2 Addtl Attending Provider Instructions: You were admitted to [facility] from to 2018 for left flank pain. You were diagnosed with non obstructing 2mm stone in the inferior pole of left kidney, mild left sided hydronephrosis and acute pyelonephritis. This was treated with IV antibiotics (ceftriaxone x2 doses) and you were switched to ciprofloxacin for a full treatment course of total 14 days. Sensitivities of the E. coli grown are outstanding at this time and you will be contacted if the antibiotic is resistant to ciprofloxacin. Recommend taking pr obiotics while on antibiotics to reduce the risk of antibiotic associated diarrhea. Please follow up with your primary care provider within the next [address] Antonio Huffman Pending Studies at Discharge: Yes (E. Coli sensitivities) Stand-Alone Forms: My [facility], Smoking Cessation Medications and DC Order Prescriptions: New ciprofloxacin HCl 500 mg tablet 500 mg PO BID 11 Days Qty: 22 RF: 0 Continued alprazolam 0.25 mg tablet 0.25 mg PO BID PRN (Reason: anxiety) Qty: 60 RF: 0 amlodipine 5 mg tablet 5 mg PO DAILY Qty: 90 RF: 1 pantoprazole 40 mg tablet,delayed release (DR/EC) 40 mg PO DAILY Qty: 90 RF: 1 clonidine HCl 0.1 mg tablet 0.1 mg PO TID Qty: 270 RF: 1 metoprolol tartrate 25 mg tablet 25 mg PO BID Qty: 180 RF: 1 isosorbide mononitrate 30 mg tablet extended release 24 hr 30 mg PO DAILY Qty: 90 RF: 1 albuterol sulfate [Ventolin HFA] 90 mcg/actuation HFA aerosol inhaler 2 - 4 puff Inhalation Q6 PRN (Reason: Shortness Of Breath Or Wheezing) Qty: 8.5 RF: 5 nystatin 100,000 unit/gram powder 1 appln TOP BID Qty: 15 RF: 5 clobetasol 0.05 % cream 1 appln TOP BID Qty: 15 RF: 1 mupirocin 2 % ointment kit 1 appln TOP BID RF: 0 potassium 99 mg Tablet 49.5 mg PO BID RF: 0 sodium chloride [Nasal Hosmer (sodium chloride)] 0.65 % Aerosol,Hosmer 2 spray INTRANASAL DAILY PRN (Reason: Congestion) RF: 0 Discharge Orders: Discharge Order (Routine); Ordered 05/22/19 Ordered By: Antonio Chinchilla Admission Data Admit Date/Time: 05/21/19 03:25 Attending Provider: Antonio Chinchilla Admit Provider: Jl Dai Primary Care Provider: Judy Nelson Other Providers: Inocencio Arthur ; Bryant Abdalla I. Other Interventions: Discharge Summary Assessment (RN) Last Done: 05/22/19 11:52 DC Date/Time DO NOT enter until pt leaves facility: 05/22/19 12:24
[2019-05-22] MEDS ORDERED: CEFDINIR 300 MG CAP PO SCH (21:00)
--- NOTE | 2019-05-23 13:57 | Communication Note ---
Date of Service: May 23, 2019 Informed by pharmacy that ESBL growing in patient's urine culture. However she had a definitive good response to ceftriaxone while admitted. Discussed results with the patient and offered to bring her back in for IV antibiotics however she still reports feeling well and I find it difficult to believe the ceftriaxone was not working therefore will switch to cefdinir for treatment course of total 14 days. Advised patient to return to the ER if she is getting worse at any point as likely she will need IV antibiotics - suggest ertapenem. She reports having a follow up with her PCP next Monday. Cefdinir 300mg BID 12 days, 14 tablets sent through to [facility].
== END 2019-05-22 12:24 | disposition home or self-care (01) | DRG 690 ==
LOC: ED 23:18 → 3N 05-21 03:25 → SUATTDRO 05-21 03:25 → 3N 05-21 03:38